=== PATIENT | male | born 1945 | race Caucasian/White ===

== ENCOUNTER 2022-05-21 13:26 | Inpatient (IN) | payer OTHER, SELFPAY ==
--- NOTE | ~2022-05-21 | CT_ITS ---
EXAMINATION: CT ANGIOGRAM OF THE CHEST WITH AND WITHOUT CONTRAST (CT PULMONARY ANGIOGRAM FOR PE) CLINICAL INFORMATION: Reason for Exam sob, tachypnea, eval for pe COMPARISON: Chest x-ray 05/21/2022. TECHNIQUE: Prior to contrast administration, noncontrast localization images were obtained. Subsequently, multidetector volumetric imaging was performed from the thoracic inlet to below the diaphragms following the administration of 80 mL Omnipaque 350 intravenous contrast. No contrast reaction reported Sagittal, coronal, and MIP oblique sagittal reformatted images were obtained on the CT workstation, uploaded to PACS, and reviewed. This CT examination was performed using dose optimization techniques as appropriate, variously including the following: *Automated exposure control *Adjustment of mA and/or kV according to patient size (this includes techniques or standardized protocols for targeted exams where dose is matched to indication/reason for exam; i.e. extremities or head) *Use of iterative reconstruction technique Total exam dose-length product 314 mGy-cm FINDINGS: QUALITY OF STUDY/CONTRAST BOLUS: Satisfactory. PULMONARY ARTERIES: No central or segmental pulmonary emboli. THORACIC AORTA: There is atherosclerotic changes throughout the thoracic aorta without aneurysm or dissection. A three-vessel branching of thoracic arch is noted with moderate atherosclerotic plaque at the origins of all vessels. LUNG: There is centrilobular emphysema with chronic left apical parenchymal thickening and scarring the scar measured approximately 1 cm thick centrally. There are cystic changes in the lung apices as well. PLEURA: No pleural effusion or pneumothorax. MEDIASTINUM: Normal heart size. No pericardial effusion. No hilar or mediastinal lymphadenopathy. No evidence of septal bowing or right heart strain. CHEST WALL/AXILLA: No axillary or internal mammary lymphadenopathy. OSSEOUS STRUCTURES: There are small sclerotic densities T6 and T10 vertebra likely small bone islands a sclerotic metastatic disease is considered less likely considering no primary exist UPPER ABDOMEN: Small hypodensity seen in the right and left hepatic lobe probable small cyst. Rest of the liver, spleen appears unremarkable. No reflux of contrast into the hepatic veins to suggest elevated right heart pressures. CT/CT angio chest PE protocol IMPRESSION: No evidence of PE. No evidence of aortic dissection or aneurysm. Diffuse centrilobular emphysema without acute process. There is moderate left apical parenchymal thickening and scarring. Sclerotic densities T6 and T10 vertebra likely small bone islands. VTE: Negative.
--- NOTE | ~2022-05-21 | XR_ITS ---
EXAMINATION: XR CHEST CLINICAL INFORMATION: Shortness of breath. Cough. COMPARISON: None TECHNIQUE: 2 views of the chest were obtained. FINDINGS: Small calcified granuloma right upper lobe. Pleural parenchymal scarring left upper lobe. No acute airspace disease.. No pulmonary vascular congestion. Right costophrenic angle slightly blunted on the AP view. Costophrenic angles however are normal posteriorly, no evidence of pleural effusion.. The heart size is normal. The cardiac and mediastinal contours are normal. There are calcifications of the thoracic aorta. There are multilevel degenerative changes of dorsal spine. Orthopedic plate and screw at lower cervical spine. XR/XR chest 2V IMPRESSION: No acute abnormality of chest.
[2022-05-21 13:44] VITALS: BP 149/95; PULSE 113; RESP 18; TEMP 36.8; O2SAT 96; BMI 22.6
--- NOTE | 2022-05-21 13:56 | ECG_ITS ---
Test Reason : shortness of breath Blood Pressure : / mmHG Vent. Rate : 096 BPM Atrial Rate : 096 BPM P-R Int : 122 ms QRS Dur : 098 ms QT Int : 370 ms P-R-T Axes : 088 -75 090 degrees QTc Int : 467 ms Normal sinus rhythm Pulmonary disease pattern Left anterior fascicular block Nonspecific T wave abnormality Prolonged QT Abnormal ECG When compared with ECG of 23-SEP-2017 23:33, T wave inversion now evident in Anterior leads Referred By: Martha Watson Electronically Signed By:STAN MICHELE
--- NOTE | 2022-05-21 14:08 | ED.MALEGU ---
HPI - Male Genitourinary General Chief complaint: Urogenital-Male Stated complaint: SOB,URINARY RETENTION Time Seen by Provider: 05/21/22 13:34 Source: patient and EMS Mode of arrival: EMS Limitations: no limitations History of Present Illness HPI Narrative: This is a 76-year-old male with history of COPD who is oxygen dependent, BPH high cholesterol, hyperthyroidism, hypertension, GERD who presents with 3 days of difficulty urinating. Patient reports only able to void small amounts. Patient is not the case emptying his bladder completely. Reports some abdominal distension. Patient denies any fevers, chills, vomiting, flank pain. Patient reports 2 weeks ago he started on oral antibiotic which she does not know the name of for presumed pneumonia. He has been taking the antibiotic and has 2 pills left. He reports continued complaints of nonproductive cough, wheezing, shortness of breath and chills. Related Data Allergies Allergy/AdvReac Type Severity Reaction Status Date / Time No Known Allergies Allergy Unverified 05/29/20 16:52 [No Known Allergies*] Review of Systems Review of Systems: Yes all other systems are reviewed and are negative Constitutional: Constitutional: Reports no additional constitutional complaints, Denies body ache(s), Reports chills, Denies fever(s), Denies headache(s) and Denies weakness Eyes: Eyes: Reports no additional eye complaints and Denies change in vision ENT: Reports system reviewed and no additional complaints, except as documented, Denies dizziness, Denies headache(s), Denies nasal congestion, Denies nasal discharge and Denies neck pain Cardiovascular: Cardiovascular: Reports no additional cardiovascular complaints, Denies chest pain, Denies leg edema and Reports dyspnea Respiratory: Respiratory: Reports no additional respiratory complaints, Reports cough and Reports dyspnea Gastrointestinal: Gastrointestinal: Reports no additional gastrointestinal complaints, Denies abdominal pain, Denies diarrhea, Denies nausea and Denies vomiting Genitourinary: Genitourinary: Reports urinary hesitancy and Denies urinary incontinence Comments: +urinary retention Musculoskeletal: Musculoskeletal: Reports no additional musculoskeletal complaints, Denies back pain, Denies arthralgias, Denies joint swelling, Denies neck pain, Denies numbness and Denies tingling Integumentary/Breasts: Skin/Breast: Reports system reviewed and no additional complaints, except as docu and Denies rash Neurologic: Reports system reviewed and no additional complaints, except as documented, Denies Abnormal speech present, Denies dizziness, Denies headache(s), Denies numbness, Denies tingling and Denies weakness PMFSH Past Medical History Attestation statement: The following information was validated with the patient. Source: old records reviewed and nursing notes reviewed Social History Social History Advance Directives: No Advance Directives Information Provided: No Physical Exam Vital Signs: Vital Signs: Last Vital Signs Temp 97.6 F 05/21/22 16:41 Pulse 106 H 05/21/22 14:18 Resp 18 05/21/22 16:41 BP 144/69 H 05/21/22 16:41 Pulse Ox 98 05/21/22 16:41 O2 Del Method 05/21/22 16:41 O2 Flow Rate 2 05/21/22 16:41 Oxygen Flow Rate 3 05/21/22 13:44 BMI result Body Mass Index 22.6 Const: General: cooperative, healthy appearing, comfortable and no acute distress Orientation/consciousness: patient oriented x3 Limitations: no limitations HEENT: Head: Yes normal to inspection Ears: hearing grossly normal bilaterally General nose exam: Normal external nose present Face and sinus: Yes normal facial exam Mouth: Normal oral and palatal mucosa present Throat: Yes posterior oropharynx normal Eyes: General: appearance normal, both eyes and all related structures Pupils: Equal, round and reactive pupils present Neck: Neck: Yes normal visual inspection Chest: Chest palpation & inspection: normal inspection of the chest Resp: Other: Tachypnea, minimal air movement, wheezing throughout, accessory muscle use Cardio: Rate: regular rate Rhythm: regular rhythm Peripheral pulses: Peripheral pulses 2+ throughout GI: Inspection: Yes normal to inspection Palpation (GI): Soft to palpation and Tenderness to palpation present (GI) (Bladder distension with tenderness) Auscultation: normal bowel sounds Back/Spine/Pelvis: Thoracic/Lumbar Spine: thoracic and lumbar spine normal to inspection Skin: General skin exam: no rashes or lesions noted Neuro: General: patient oriented x3, no focal motor deficits and normal sensation to monofilament Cranial nerves: Yes Equal, round and reactive pupils present Cognition (Neuro): normal cognition Speech: No Abnormal speech present Gait exam (Neuro): Normal gait present Motor exam (neuro): 5/5 motor strength present throughout Extrem: General: Yes normal to inspection, Yes no pedal edema and Yes no calf tenderness Course Course Course Narrative: 1500-UA is consistent with UTI. At this time infection suspected. Antibiotics ordered. Reevaluation(s) Reevaluation #1: 1540-abdomen feels better now that the bladder is decompressed. Patient still feels short of breath, tachypneic, wheezing. Chest x-ray shows no overt pneumonia. Will obtain CTA to eval for underlying PE versus occult pneumonia. Reevaluation #2: 1820-CTA negative for PE or occult pneumonia. Likely COPD exacerbation. Patient still quite tachypneic with any movement or exertion. Plan for admission for COPD exacerbation, urinary retention requiring rodas placement and UTI Reevaluation #3: 1830-spoke to Dr. Joseph who accepted patient for admission MDM - Male Genitourinary MDM Narrative Medical decision making narrative: 76 yo male with past medical history of COPD oxygen dependent and BPH here with continued SOB, wheezing, cough, chills despite taking course of oral antibiotics for PNA and urinary retention. Bladder scan shows greater than 1000 mL of urine. will place rodas, check urine, renal function Patient has wheezing, tachypnea, accessory muscle use. Likely secondary to chronic lung disease. Will check labs, chest x-ray, EKG, COVID screen Medical Records Attestation: I reviewed the patient's medical records. Lab Data Attestation: I reviewed the patient's lab results. Result diagrams: 05/21/22 14:34 05/21/22 14:34 Labs: Lab Results 05/21/22 05/21/22 05/21/22 Range/Units 14:33 14:34 14:34 WBC 11.3 H (4.8-10.8) X10*3/uL RBC 4.67 (4.60-5.80) X10*6/uL Hgb 14.5 (14.0-18.0) g/dl Hct 43.7 (42.0-52.0) % MCV 93.6 (80.0-98.0) fL MCH 31.0 (27.0-33.0) pg MCHC 33.2 (31.0-36.0) g/dl RDW 12.9 (11.0-16.0) % Plt Count 290 (160-400) X10*3/uL MPV 10.3 (9.4-12.4) fL Immature Gran % (Auto) 0.8 H (0.0-0.4) % Neut % (Auto) 62.7 (45-73) % Lymph % (Auto) 16.6 L (20-40) % [place] % (Auto) 14.2 H (2-11) % Eos % (Auto) 5.0 H (0-4) % Baso % (Auto) 0.7 (0-2) % Lymph # (Auto) 1.9 (1.2-4.9) X10*3/uL [place] # (Auto) 1.6 H (0.1-1.2) X10*3/uL Eos # (Auto) 0.6 H (0.0-0.4) X10*3/uL Baso # (Auto) 0.1 (0.0-0.2) X10*3/uL Abs Immat Gran (auto) 0.09 H (0.00-0.03) X10*3/uL Absolute Neuts (auto) 7.1 (2.0-8.3) x10*3/uL Absolute Nucleated RBC 0.000 (0.0-0.012) X10*3/uL Nucleated RBC % (auto) 0.0 (0.0-0.2) /100WBC Smear Tech's Comments VERIFIED Sodium 142 (135-145) mmol/L Potassium 3.8 (3.3-5.1) mmol/L Chloride 93 L (96-108) mmol/L Carbon Dioxide 34 H (22-29) mmol/L Anion Gap 19 (12-20) BUN 17 H (9-16) mg/dL Creatinine 1.07 (0.5-1.4) mg/dL Estim Creat Clear Calc 52.7 Estimated GFR > 60 Random Glucose 117 H (60-115) mg/dL Lactic Acid 1.0 (0.5-2.0) mmol/L Calcium 10.9 H (8.4-10.2) mg/dL Magnesium 1.7 (1.6-2.6) mg/dL Total Bilirubin 0.3 (0.0-1.0) mg/dL Direct Bilirubin 0.2 (0.0-0.5) mg/dL AST 33 (5-37) U/L ALT 18 (0-40) U/L Alkaline Phosphatase 80 (39-117) U/L Troponin I High Sens (<3.5-35.0) ng/L B-Natriuretic Peptide (<100) pg/mL Total Protein 6.9 (6.5-8.0) g/dL Albumin 4.1 (3.5-5.0) g/dL Urine Color Urine Appearance Urine pH (5.0-9.0) Ur Specific [place] (1.005-1.025) Urine Protein (Neg-Trace) mg/dL Urine Glucose (UA) (Negative) mg/dL Urine Ketones (Negative) mg/dL Urine Blood (Negative) Urine Nitrite (Negative) Ur Leukocyte Esterase (Negative) Urine RBC (0-2) /HPF Urine WBC (0-5) /HPF Ur Squamous Epith Cells (0-2) /HPF Urine Bacteria (None Seen) Hyaline Casts (0-2) /LPF COVID-19 (CARISSA) (Negative) COVID-19 Clin Com 05/21/22 05/21/22 05/21/22 Range/Units 14:34 14:34 14:34 WBC (4.8-10.8) X10*3/uL RBC (4.60-5.80) X10*6/uL Hgb (14.0-18.0) g/dl Hct (42.0-52.0) % MCV (80.0-98.0) fL MCH (27.0-33.0) pg MCHC (31.0-36.0) g/dl RDW (11.0-16.0) % Plt Count (160-400) X10*3/uL MPV (9.4-12.4) fL Immature Gran % (Auto) (0.0-0.4) % Neut % (Auto) (45-73) % Lymph % (Auto) (20-40) % [place] % (Auto) (2-11) % Eos % (Auto) (0-4) % Baso % (Auto) (0-2) % Lymph # (Auto) (1.2-4.9) X10*3/uL [place] # (Auto) (0.1-1.2) X10*3/uL Eos # (Auto) (0.0-0.4) X10*3/uL Baso # (Auto) (0.0-0.2) X10*3/uL Abs Immat Gran (auto) (0.00-0.03) X10*3/uL Absolute Neuts (auto) (2.0-8.3) x10*3/uL Absolute Nucleated RBC (0.0-0.012) X10*3/uL Nucleated RBC % (auto) (0.0-0.2) /100WBC Smear Tech's Comments Sodium (135-145) mmol/L Potassium (3.3-5.1) mmol/L Chloride (96-108) mmol/L Carbon Dioxide (22-29) mmol/L Anion Gap (12-20) BUN (9-16) mg/dL Creatinine (0.5-1.4) mg/dL Estim Creat Clear Calc Estimated GFR Random Glucose (60-115) mg/dL Lactic Acid (0.5-2.0) mmol/L Calcium (8.4-10.2) mg/dL Magnesium (1.6-2.6) mg/dL Total Bilirubin (0.0-1.0) mg/dL Direct Bilirubin (0.0-0.5) mg/dL AST (5-37) U/L ALT (0-40) U/L Alkaline Phosphatase (39-117) U/L Troponin I High Sens 84.3 H (<3.5-35.0) ng/L B-Natriuretic Peptide 72 (<100) pg/mL Total Protein (6.5-8.0) g/dL Albumin (3.5-5.0) g/dL Urine Color Urine Appearance Urine pH (5.0-9.0) Ur Specific [place] (1.005-1.025) Urine Protein (Neg-Trace) mg/dL Urine Glucose (UA) (Negative) mg/dL Urine Ketones (Negative) mg/dL Urine Blood (Negative) Urine Nitrite (Negative) Ur Leukocyte Esterase (Negative) Urine RBC (0-2) /HPF Urine WBC (0-5) /HPF Ur Squamous Epith Cells (0-2) /HPF Urine Bacteria (None Seen) Hyaline Casts (0-2) /LPF COVID-19 (CARISSA) Negative (Negative) COVID-19 Clin Com See Note 05/21/22 05/21/22 Range/Units 14:35 16:41 WBC (4.8-10.8) X10*3/uL RBC (4.60-5.80) X10*6/uL Hgb (14.0-18.0) g/dl Hct (42.0-52.0) % MCV (80.0-98.0) fL MCH (27.0-33.0) pg MCHC (31.0-36.0) g/dl RDW (11.0-16.0) % Plt Count (160-400) X10*3/uL MPV (9.4-12.4) fL Immature Gran % (Auto) (0.0-0.4) % Neut % (Auto) (45-73) % Lymph % (Auto) (20-40) % [place] % (Auto) (2-11) % Eos % (Auto) (0-4) % Baso % (Auto) (0-2) % Lymph # (Auto) (1.2-4.9) X10*3/uL [place] # (Auto) (0.1-1.2) X10*3/uL Eos # (Auto) (0.0-0.4) X10*3/uL Baso # (Auto) (0.0-0.2) X10*3/uL Abs Immat Gran (auto) (0.00-0.03) X10*3/uL Absolute Neuts (auto) (2.0-8.3) x10*3/uL Absolute Nucleated RBC (0.0-0.012) X10*3/uL Nucleated RBC % (auto) (0.0-0.2) /100WBC Smear Tech's Comments Sodium (135-145) mmol/L Potassium (3.3-5.1) mmol/L Chloride (96-108) mmol/L Carbon Dioxide (22-29) mmol/L Anion Gap (12-20) BUN (9-16) mg/dL Creatinine (0.5-1.4) mg/dL Estim Creat Clear Calc Estimated GFR Random Glucose (60-115) mg/dL Lactic Acid (0.5-2.0) mmol/L Calcium (8.4-10.2) mg/dL Magnesium (1.6-2.6) mg/dL Total Bilirubin (0.0-1.0) mg/dL Direct Bilirubin (0.0-0.5) mg/dL AST (5-37) U/L ALT (0-40) U/L Alkaline Phosphatase (39-117) U/L Troponin I High Sens 84.4 H (<3.5-35.0) ng/L B-Natriuretic Peptide (<100) pg/mL Total Protein (6.5-8.0) g/dL Albumin (3.5-5.0) g/dL Urine Color [place] A Urine Appearance Clear Urine pH 5.5 (5.0-9.0) Ur Specific [place] 1.010 (1.005-1.025) Urine Protein Negative (Neg-Trace) mg/dL Urine Glucose (UA) Negative (Negative) mg/dL Urine Ketones 15 (Negative) mg/dL Urine Blood Negative (Negative) Urine Nitrite Positive H (Negative) Ur Leukocyte Esterase Trace H (Negative) Urine RBC 0-2 (0-2) /HPF Urine WBC 0-5 (0-5) /HPF Ur Squamous Epith Cells 0-2 (0-2) /HPF Urine Bacteria None Seen (None Seen) Hyaline Casts 0-2 (0-2) /LPF COVID-19 (CARISSA) (Negative) COVID-19 Clin Com Imaging Data Chest x-ray: Attestation: I personally reviewed and interpreted this imaging study as follows: Radiologist's impression: [place] [id number] XRay Report Signed Patient: Beny Han MR#: [id number] : 1945 Acct:[id number] Age/Sex: 76 / M ADM Date: 05/21/22 Loc: .ED Attending Dr: Ordering Physician: Martha Watson NP Date of Service: 05/21/22 Procedure(s): XR chest 2V Accession Number(s): [id number] cc: Martha Watson NP~ EXAMINATION: XR CHEST CLINICAL INFORMATION: Shortness of breath. Cough. COMPARISON: None TECHNIQUE: 2 views of the chest were obtained. FINDINGS: Small calcified granuloma right upper lobe. Pleural parenchymal scarring left upper lobe. No acute airspace disease.. No pulmonary vascular congestion. Right costophrenic angle slightly blunted on the AP view. Costophrenic angles however are normal posteriorly, no evidence of pleural effusion.. The heart size is normal. The cardiac and mediastinal contours are normal. There are calcifications of the thoracic aorta. There are multilevel degenerative changes of dorsal spine.? ? Orthopedic plate and screw at lower cervical spine. XR/XR chest 2V IMPRESSION: No acute abnormality of chest. ECG Data Attestation: I personally reviewed and interpreted this ECG as follows: ECG interpretation date: 05/21/22 ECG interpretation time: 15:02 Interpretation: Normal sinus rhythm with a rate 86, normal VT, normal QRS, nonspecific ST changes, prolonged QT 480 Discharge Plan Discharge Clinical Impression: Urinary tract infection, Acute retention of urine, Acute exacerbation of chronic obstructive pulmonary disease Patient Disposition: Admitted As Inpatient
[2022-05-21] MEDS: Albuterol/Iprat 2.5/0.5MG 3 ML AMPUL.NEB INHALE ×2 (14:17→19:56)
[2022-05-21 14:18] VITALS: PULSE 106; RESP 21; O2SAT 97
[2022-05-21] MEDS: methylPREDNISolone Sod Succ 125 MG/2 ML VIAL IVPUSH (14:40)
[2022-05-21] MEDS: Lidocaine HCl 2 % Urojet 10 ML JEL.PF.APP TOPICAL (14:41)
[2022-05-21 14:46] LABS: Basophils Absolute Auto 0.1 X10*3/uL (0.0-0.2); Basophils Percent Auto 0.7 % (0-2); Eosinophils Absolute Auto 0.6 X10*3/uL (0.0-0.4); Hematocrit 43.7 % (42.0-52.0); Hemoglobin 14.5 g/dl (14.0-18.0); Imm Gran Abs Auto 0.09 X10*3/uL (0.00-0.03); Imm Gran Pct Auto 0.8 % (0.0-0.4); Lymphocytes Absolute Auto 1.9 X10*3/uL (1.2-4.9); Lymphocytes Percent Auto 16.6 % (20-40); MANUAL DIFF FLAG SCAN; Mean Corpuscular HGB Conc 33.2 g/dl (31.0-36.0); Mean Corpuscular Volume 93.6 fL (80.0-98.0); Mean Platelet Volume 10.3 fL (9.4-12.4); Monocytes Absolute Auto 1.6 X10*3/uL (0.1-1.2); Monocytes Percent Auto 14.2 % (2-11); Neutrophils Absolute Auto 7.1 x10*3/uL (2.0-8.3); Neutrophils Percent Auto 62.7 % (45-73); Platelet Count 290 X10*3/uL (160-400); Red Blood Count 4.67 X10*6/uL (4.60-5.80); Red Cell Distribution Width 12.9 % (11.0-16.0); SCAN SMEAR FLAG 1; White Blood Count 11.3 X10*3/uL (4.8-10.8)
[2022-05-21 14:52] LABS: Appearance Urine Clear; Glucose Urine UA Negative (Negative); Leukocyte Esterase Urine Trace (Negative); PH 5.5 (5.0-9.0); Urine Blood Negative (Negative); Urine Ketones 15 mg/dL (Negative); Urine Protein Negative (Neg-Trace)
[2022-05-21 15:01] LABS: Bacteria Urine None Seen (None Seen); Hyaline Casts Urine 0-2 /LPF (0-2); RBC Urine 0-2 /HPF (0-2); Squamous Epithelial Cell Urine 0-2 /HPF (0-2); WBC Urine 0-5 /HPF (0-5)
[2022-05-21 15:03] LABS: Color Urine Orange; Nitrite Urine Positive (Negative); UACC Culture Trigger NO
[2022-05-21 15:10] LABS: COVID-19 Test Negative (Negative); IDNOW Serial# 9DD0AD1C
--- NOTE | 2022-05-21 15:12 | ECG_ITS ---
Test Reason : shortness of breath/ repeat Blood Pressure : / mmHG Vent. Rate : 096 BPM Atrial Rate : 096 BPM P-R Int : 122 ms QRS Dur : 098 ms QT Int : 380 ms P-R-T Axes : 088 -76 091 degrees QTc Int : 480 ms Normal sinus rhythm Pulmonary disease pattern Left anterior fascicular block Nonspecific T wave abnormality Prolonged QT Abnormal ECG When compared with ECG of 21-MAY-2022 14:59, No significant change was found Referred By: Martha Watson Electronically Signed By:
[2022-05-21] MEDS: cefEPime HCl 1 GM in 0.9 % Sodium Chloride 50 ML IV (15:13)
[2022-05-21 15:24] LABS: Alanine Aminotransferase 18 U/L (0-40); Albumin Level 4.1 g/dL (3.5-5.0); Alkaline Phosphatase 80 U/L (39-117); Anion Gap 19 (12-20); Aspartate Amino Transferase 33 U/L (5-37); Bilirubin Direct 0.2 mg/dL (0.0-0.5); Bilirubin Total 0.3 mg/dL (0.0-1.0); Blood Urea Nitrogen 17 mg/dL (9-16); Carbon Dioxide 34 mmol/L (22-29); Chloride 93 mmol/L (96-108); Creatinine Clr Calc Pharmacy 52.7; Estimated Glomerular Filt Rate > 60; Glucose Random 117 mg/dL (60-115); Magnesium 1.7 mg/dL (1.6-2.6); Potassium 3.8 mmol/L (3.3-5.1); Sodium 142 mmol/L (135-145); Total Protein 6.9 g/dL (6.5-8.0)
[2022-05-21 15:25] LABS: B Type Natriuretic Peptide 72 pg/mL (<100); Troponin-I High Sensitivity 84.3 ng/L (<3.5-35.0)
[2022-05-21 15:55] LABS: Calcium 10.9 mg/dL (8.4-10.2)
[2022-05-21 16:00] LABS: SLIDE REVIEW VERIFIED
[2022-05-21] MEDS: iohexoL 350 MG/ML 100 ML INFUS..BTL IV (16:04)
[2022-05-21 16:41] VITALS: BP 144/69; RESP 18; TEMP 36.4; O2SAT 98
[2022-05-21 17:11] LABS: Troponin-I High Sensitivity 84.4 ng/L (<3.5-35.0)
--- NOTE | 2022-05-21 18:59 | PM.IMHP ---
History of Present Illness Date of Service: 05/21/22 Attending physician on admission: Prince Joseph Chief Complaint: sob , uti 76-year-old male with history of advanced COPD who is oxygen dependent,wpw, cad s/p stents 6 years ago, BPH high cholesterol, hyperthyroidism, hypertension, GERD who presents with 3 days of difficulty urinating.? Patient reports 2 weeks ago he started on oral antibiotic which she does not know the name of for presumed pneumonia. Patient says that he was feeling initially better with shortness of breath the so and then says slowly his shortness of breath started getting worse and also started having cough with yellowish phlegm. In addition he was having trouble urinating was urinating in very small amounts and history of BPH. Denies any nausea or vomiting or fever or chills, has some gaseous sensation in the abdomen . Denies any new complaint of chest pain Denies any weakness or numbness. Denies any sick contact or travel recently. He is COVID vaccinatedx4 Speak With Me. Lab imaging EKG reviewed: Patient has white count of 11.3, BUN 17, creatinine 1.07, calcium 10.9, troponin x2 84 range flat. EKG has v1-v3 t wave inversion. Chest x-ray and CTA: Says has emphysema. Review of Systems Review of Systems: As above. Yes all other systems are reviewed and are negative [facility] Social History (Updated 05/21/22 @ 19:07 by Prince Joseph MD) Household Members: Family Alcohol intake: never Patient Tobacco Use Status: Former Tobacco user Use of substances other than those prescribed or required for medical reasons: No Advance Directives: No Advance Directives Information Provided: No Meds Allergies Allergy/AdvReac Type Severity Reaction Status Date / Time No Known Allergies Allergy Unverified 05/29/20 16:52 [No Known Allergies*] Active Medications: Current Medications Albuterol/Ipratropium (Albuterol/Iprat 2.5/0.5mg 3 Ml Ampul.Neb) 3 ml INHALE Q4H ESTHER Albuterol/Ipratropium (Albuterol/Iprat 2.5/0.5mg 3 Ml Ampul.Neb) 3 ml INHALE Q3H PRN PRN Reason: sob Aspirin (Aspirin Enteric Coated 81 Mg Tablet.) 162 mg PO ONCE ONE Stop: 05/21/22 18:56 Atorvastatin Calcium (Atorvastatin Calcium 40 Mg Tablet) 40 mg PO ONCE ONE Stop: 05/21/22 18:58 Finasteride (Finasteride 5 Mg Tablet) 5 mg PO DAILY [facility] Ceftriaxone Sodium 1 gm/ (Sodium Chloride) 50 mls @ 100 mls/hr IV Q24H [facility] Methylprednisolone Sodium Succinate (Methylprednisolone Sod Succ 40 Mg/Ml Vial) 40 mg IVPUSH BID [facility] Pharmacy Consult (Consult Rx Perform Med Rec) 1 each MISCELLANE ONCE PRN PRN Reason: Consult order Pharmacy Consult (Consult Rx Perform Med Rec) 1 each MISCELLANE ONCE PRN PRN Reason: Consult order Sodium Chloride (0.9 % Sodium Chloride Flush 3 Ml Syringe) 3 ml IVFLUSH QSHIFT [facility] Tamsulosin HCl (Tamsulosin Hcl 0.4 Mg Capsule) 0.4 mg PO DAILY [facility] Physical Exam Vital Signs and Narrative: Vital Signs: Last Vital Signs Temp 97.6 F 05/21/22 16:41 Pulse 106 H 05/21/22 14:18 Resp 18 05/21/22 16:41 BP 144/69 H 05/21/22 16:41 Pulse Ox 98 05/21/22 16:41 O2 Del Method 05/21/22 16:41 O2 Flow Rate 2 05/21/22 16:41 Oxygen Flow Rate 3 05/21/22 13:44 BMI result Body Mass Index 22.6 Appearance: Alert.? Oriented X3.? not in distress.? Eyes: Pupils equal, round and reactive to light.? Sclera nonicteric.? ENT: Pharynx normal.? Moist mucous membranes. cvs: rrr, [id number] . res: diminshed breath sounds , has b/l wheezing abd: no rebound or guarding ,nt, bs present. ext pulses present , no cyanosis. neuro: axo3 , nonfocal. Results Labs CBC and Chem 7: 05/21/22 14:34 05/21/22 14:34 Labs: Laboratory Results - last 24 hr 05/21/22 05/21/22 05/21/22 14:33 14:34 14:34 MCV 93.6 MCH 31.0 MCHC 33.2 RDW 12.9 Plt Count 290 MPV 10.3 Immature Gran % (Auto) 0.8 H Neut % (Auto) 62.7 Lymph % (Auto) 16.6 L [place] % (Auto) 14.2 H Eos % (Auto) 5.0 H Baso % (Auto) 0.7 Lymph # (Auto) 1.9 [place] # (Auto) 1.6 H Eos # (Auto) 0.6 H Baso # (Auto) 0.1 Abs Immat Gran (auto) 0.09 H Absolute Neuts (auto) 7.1 Absolute Nucleated RBC 0.000 Nucleated RBC % (auto) 0.0 Smear Tech's Comments VERIFIED Anion Gap 19 Estim Creat Clear Calc 52.7 Estimated GFR > 60 Random Glucose 117 H Lactic Acid 1.0 Calcium 10.9 H Magnesium 1.7 Total Bilirubin 0.3 Direct Bilirubin 0.2 AST 33 ALT 18 Alkaline Phosphatase 80 B-Natriuretic Peptide Total Protein 6.9 Albumin 4.1 Urine Color Urine Appearance Urine pH Ur Specific [place] Urine Protein Urine Glucose (UA) Urine Ketones Urine Blood Urine Nitrite Ur Leukocyte Esterase Urine RBC Urine WBC Ur Squamous Epith Cells Urine Bacteria Hyaline Casts COVID-19 (CARISSA) COVID-19 Clin Com 05/21/22 05/21/22 05/21/22 14:34 14:34 14:35 MCV MCH MCHC RDW Plt Count MPV Immature Gran % (Auto) Neut % (Auto) Lymph % (Auto) [place] % (Auto) Eos % (Auto) Baso % (Auto) Lymph # (Auto) [place] # (Auto) Eos # (Auto) Baso # (Auto) Abs Immat Gran (auto) Absolute Neuts (auto) Absolute Nucleated RBC Nucleated RBC % (auto) Smear Tech's Comments Anion Gap Estim Creat Clear Calc Estimated GFR Random Glucose Lactic Acid Calcium Magnesium Total Bilirubin Direct Bilirubin AST ALT Alkaline Phosphatase B-Natriuretic Peptide 72 Total Protein Albumin Urine Color [place] A Urine Appearance Clear Urine pH 5.5 Ur Specific [place] 1.010 Urine Protein Negative Urine Glucose (UA) Negative Urine Ketones 15 Urine Blood Negative Urine Nitrite Positive H Ur Leukocyte Esterase Trace H Urine RBC 0-2 Urine WBC 0-5 Ur Squamous Epith Cells 0-2 Urine Bacteria None Seen Hyaline Casts 0-2 COVID-19 (CARISSA) Negative COVID-19 Clin Com See Note ECG Attestation: I personally reviewed and interpreted this ECG as follows: (t wave inversion in v1-v3 leads) Imaging Radiologist's Impressions: Impressions Chest X-Ray 05/21/22 14:38 IMPRESSION: No acute abnormality of chest. Chest CTA 05/21/22 16:19 IMPRESSION: No evidence of PE. No evidence of aortic dissection or aneurysm. Diffuse centrilobular emphysema without acute process. There is moderate left apical parenchymal thickening and scarring. Sclerotic densities T6 and T10 vertebra likely small bone islands. VTE: Negative. Assessment and Plan (1) Urinary tract infection: Status: Acute (2) Acute retention of urine: Status: Acute (3) Acute exacerbation of chronic obstructive pulmonary disease: Status: Acute (4) WPW (Zfmht-Rqoctfcfq-Sbubq syndrome): Status: Acute (5) CAD (coronary artery disease): Status: Acute Plan 76-year-old male with history of advanced COPD who is oxygen dependent,wpw, cad s/p stents 6 years ago, BPH high cholesterol, hyperthyroidism, hypertension, GERD : Admitting for COPD exacerbation and UTI. 1. COPD exacerbation who is oxygen dependent: initail tachycaria/Tachypnea probably related to COPD. Still short of breath, talking in small sentences. Started on nebs, steroids, antibiotics Blood cultures sent 2. ? CAD had heart stents 6 years ago and also has history of [id number]-[id number]: Medical reconciliation still pending Patient has mild elevated troponin, also has EKG changes as above Will start aspirin statin, cardiology consult, echo 3. BPH: Was draining almost 1 L of urine. Status post Lamas Continue Flomax and finasteride May need outpatient follow-up with Urology. 4. Hypercholesteremia and hypothyroidism as well as hypertension: Home med reconciliation is still pending 5. UTI: Patient was given cefepime initially, started on ceftriaxone, urine culture ordered. Blood culture also sent. DVT prophylaxis: With subQ Lovenox Patient has COPD exacerbation/UTI-started on nebs, steroids and antibiotics, cultures sent- patient will benefit from 2 midnight stay for COPD management as well as UTI management and workup. Above management discussed with the patient in detail and he understand and in agreement with the plan, time spent 70 minute, patient is DNR DNI. Quality Stroke Does the patient have a stroke diagnosis?: No VTE Prior VTE?: No VTE Risk Level:: Medical - moderate - high VTE Device Contraindication: N/A - Device Ordered VTE Drug Contraindication: N/A - Med Ordered
--- NOTE | 2022-05-21 19:22 | PHA.MEDREC ---
Pharmacy Consult ? Medication Reconciliation Pharmacy has completed the medication reconciliation.
[2022-05-21 19:57] VITALS: PULSE 91; RESP 23; O2SAT 96
[2022-05-21 20:22] VITALS: BP 121/72; PULSE 94; RESP 21; TEMP 36.8; O2SAT 97
[2022-05-21] MEDS: Aspirin Enteric Coated 81 MG TABLET.DR 162 MG PO (20:25)
[2022-05-21] MEDS: Omeprazole 20 MG CAPSULE.DR PO (20:26)
[2022-05-21] MEDS: cefTRIAXone sodium 1 GM in 0.9 % Sodium Chloride 50 ML IV (20:26)
--- NOTE | 2022-05-21 20:32 | PC.NURSE ---
Assumed care of pt at 1900. Pt. is sitting in bed watching tv, under no apparent distress. Pt. reports no pain. Will continue to monitor.
[2022-05-21] MEDS: Enoxaparin Sodium 40 MG/0.4 ML SYRINGE SUBCUT (21:23)
[2022-05-21] MEDS: Acyclovir 200 MG CAPSULE 400 MG PO (21:23)
[2022-05-21] MEDS: Ascorbic Acid 500 MG TABLET PO (21:23)
[2022-05-21] MEDS: methylPREDNISolone Sod Succ 40 MG/ML VIAL IVPUSH (21:51)
[2022-05-21] MEDS: QUEtiapine Fumarate 100 MG TABLET PO (22:46)
[2022-05-21] MEDS: LORazepam 0.5 MG TABLET PO (22:47)
[2022-05-21] MEDS: Temazepam 15 MG CAPSULE PO (22:47)
[2022-05-22] VITALS (9 sets, daily range): BP systolic 100–133; BP diastolic 63–73; PULSE 77–120; RESP 17–24; TEMP 36.9; O2SAT 94–97; BMI 23.4
[2022-05-22] MEDS: Albuterol/Iprat 2.5/0.5MG 3 ML AMPUL.NEB INHALE ×4 (08:16→19:59)
[2022-05-22 08:18] LABS: Hematocrit 39.1 % (42.0-52.0); Mean Corpuscular HGB Conc 33.2 g/dl (31.0-36.0); Mean Corpuscular Hemoglobin 31.2 pg (27.0-33.0); Mean Corpuscular Volume 93.8 fL (80.0-98.0); Mean Platelet Volume 10.6 fL (9.4-12.4); Platelet Count 270 X10*3/uL (160-400); Red Blood Count 4.17 X10*6/uL (4.60-5.80); Red Cell Distribution Width 12.8 % (11.0-16.0); White Blood Count 12.9 X10*3/uL (4.8-10.8)
[2022-05-22 08:41] LABS: Anion Gap 14 (12-20); Blood Urea Nitrogen 16 mg/dL (9-16); Calcium 9.5 mg/dL (8.4-10.2); Carbon Dioxide 34 mmol/L (22-29); Chloride 95 mmol/L (96-108); Creatinine Clr Calc Pharmacy 64.8; Estimated Glomerular Filt Rate > 60; Glucose Random 146 mg/dL (60-115); Potassium 4.3 mmol/L (3.3-5.1); Sodium 139 mmol/L (135-145)
[2022-05-22] MEDS: Cholecalciferol (Vitamin D3) 25 MCG TABLET PO (08:52)
[2022-05-22] MEDS: Ascorbic Acid 500 MG TABLET PO ×2 (08:52→20:49)
[2022-05-22] MEDS: methylPREDNISolone Sod Succ 40 MG/ML VIAL IVPUSH ×2 (08:52→20:49)
[2022-05-22] MEDS: Finasteride 5 MG TABLET PO (08:52)
[2022-05-22] MEDS: Omeprazole 20 MG CAPSULE.DR PO (08:52)
[2022-05-22] MEDS: Atorvastatin Calcium 80 MG TABLET PO (08:52)
[2022-05-22] MEDS: Metoprolol Succinate ER 50 MG TAB.ER.24H PO (08:53)
[2022-05-22] MEDS: Losartan Potassium 25 MG TABLET PO (08:53)
[2022-05-22] MEDS: Lidocaine 4 % Patch ADH..PATCH 1 PATCH TRANSDERMA (08:53)
[2022-05-22] MEDS: polyethylene glycoL 3350 17 GM POWD.PACK PO (08:53)
[2022-05-22] MEDS: Tamsulosin HCL 0.4 MG CAPSULE PO (08:53)
[2022-05-22] MEDS: 0.9 % Sodium Chloride Flush 3 ML SYRINGE IVFLUSH ×4 (08:55→23:49)
[2022-05-22] MEDS: buPROPion HCL 75 MG TABLET PO (09:04)
[2022-05-22] MEDS: Acyclovir 200 MG CAPSULE 400 MG PO ×2 (09:05→22:26)
--- NOTE | 2022-05-22 09:29 | PC.NURSE ---
Pt alert/oriented. reports 09/21 abd discomfort Speaking full sentences. Lamas patent however lino blood noted in drainage bag. ASA held, Dr Joseph aware with orders to monitor at this time. Sinus tach on tele low 100s, sat 98% on home 2lpm.
[2022-05-22] MEDS: Furosemide 20 MG TABLET PO (10:22)
--- NOTE | 2022-05-22 13:00 | MHC.CM.PN ---
Met with pt to discuss d/c planning: Pt resides alone but has a compensated RN ACUTE CARE 7 days per week ([facility]) Pt has a walker, cane, scooter, chair lift and concentrator for O2. His PCP is TONI Hardy from the [facility]. He has community RN visits from the [place] and from [place]. Pt states he is vaxed x 3. IMM in chart, HCP copy requested from home. D/C plan is for a return to home with existing services and supports. Haley will transport and pt will call her from his personal cell when ready
--- NOTE | 2022-05-22 13:28 | PC.NURSE ---
Flaco blood previously noted in rodas improving, not as bright as noted previously. Pt tachy in 120s, sinus. Dr Joseph updated.
--- NOTE | 2022-05-22 14:00 | PM.CNCAR ---
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 He underwent ablation as well as PCI in [facility]. He is saying he was being assessed for lung transplant at that time and underwent PCI. Does not know his anginal symptoms and has shortness of breath all the time. He has advanced lung disease. He is now presenting with urinary retention with some hematuria present now after Lamas catheter placement and shortness of breath due to COPD exacerbation. After steroids he is feeling better. His EKG has shown anterior T-wave inversions as well as T-wave inversions in 1 aVL. His last EKG not system is 4 years old and these changes are new. He is denying any chest discomfort. He is feeling better from pulmonary point of view after treatment for COPD exacerbation. [facility] Social History Social History (Updated 05/21/22 @ 19:07 by Prince Joseph MD) Household Members: Family Alcohol intake: never Patient Tobacco Use Status: Former Tobacco user Use of substances other than those prescribed or required for medical reasons: No Advance Directives: No Advance Directives Information Provided: No service: Yes Current occupational status: disabled Meds Allergies Allergy/AdvReac Type Severity Reaction Status Date / Time No Known Allergies Allergy Unverified 05/29/20 16:52 [No Known Allergies*] Active Medications: Current Medications Acyclovir (Acyclovir 200 Mg Capsule) 400 mg PO BID [facility] Last Admin: 05/22/22 09:05 Dose: 400 mg Albuterol/Ipratropium (Albuterol/Iprat 2.5/0.5mg 3 Ml Ampul.Neb) 3 ml INHALE Q4H [facility] Last Admin: 05/22/22 11:17 Dose: 3 ml Albuterol/Ipratropium (Albuterol/Iprat 2.5/0.5mg 3 Ml Ampul.Neb) 3 ml INHALE Q3H PRN PRN Reason: sob Ascorbic Acid (Ascorbic Acid 500 Mg Tablet) 500 mg PO BID [facility] Last Admin: 05/22/22 08:52 Dose: 500 mg Aspirin (Aspirin 81 Mg Tab.Chew) 81 mg PO DAILY [facility] Last Admin: 05/22/22 09:03 Dose: Not Given Atorvastatin Calcium (Atorvastatin Calcium 80 Mg Tablet) 80 mg PO DAILY [facility] Last Admin: 05/22/22 08:52 Dose: 80 mg Bupropion HCl (Bupropion Hcl 75 Mg Tablet) 75 mg PO DAILY [facility] Last Admin: 05/22/22 09:04 Dose: 75 mg Calcium Carbonate (Calcium Carbonate 500 Mg Tablet) 1,000 mg PO DAILY [facility] Last Admin: 05/22/22 09:04 Dose: 1,000 mg Docusate Sodium (Docusate Sodium 100 Mg Capsule) 100 mg PO BID PRN PRN Reason: soften stool Finasteride (Finasteride 5 Mg Tablet) 5 mg PO DAILY [facility] Last Admin: 05/22/22 08:52 Dose: 5 mg Furosemide (Furosemide 20 Mg Tablet) 20 mg PO SUTUTHSA [facility]; Protocol Last Admin: 05/22/22 10:22 Dose: 20 mg Furosemide (Furosemide 40 Mg Tablet) 40 mg PO MOWEFR [facility]; Protocol Last Admin: 05/22/22 09:10 Dose: Not Given Guaifenesin (Guaifenesin 200 Mg/10 Ml 10 Ml Liquid) 400 ml PO BID PRN PRN Reason: Cough Ceftriaxone Sodium 1 gm/ (Sodium Chloride) 50 mls @ 100 mls/hr IV Q24H [facility] Last Infusion: 05/21/22 22:37 Dose: Infused Lidocaine (Lidocaine 4 % Patch Adh..Patch) 1 patch TRANSDERMA DAILY [facility] Last Admin: 05/22/22 08:53 Dose: 1 patch Loratadine (Loratadine 10 Mg Tablet) 10 mg PO DAILY PRN PRN Reason: Allergy Symptoms Lorazepam (Lorazepam 0.5 Mg Tablet) 0.5 mg PO TID PRN PRN Reason: Anxiety Last Admin: 05/21/22 22:47 Dose: 0.5 mg Losartan Potassium (Losartan Potassium 25 Mg Tablet) 25 mg PO DAILY [facility]; Protocol Last Admin: 05/22/22 08:53 Dose: 25 mg Methimazole (Methimazole 5 Mg Tablet) 5 mg PO MOWEFR [facility] Last Admin: 05/22/22 09:10 Dose: Not Given Methylprednisolone Sodium Succinate (Methylprednisolone Sod Succ 40 Mg/Ml Vial) 40 mg IVPUSH BID [facility] Last Admin: 05/22/22 08:52 Dose: 40 mg Metoprolol Succinate (Metoprolol Succinate Er 50 Mg Tab.Er.24h) 50 mg PO DAILY [facility]; Protocol Last Admin: 05/22/22 08:53 Dose: 50 mg Nitroglycerin (Nitroglycerin 0.4 Mg Tab.Subl) 0.4 mg SUBLINGUAL Q5M PRN PRN Reason: Chest Pain Omeprazole (Omeprazole 20 Mg Capsule.Dr) 20 mg PO DAILY [facility] Last Admin: 05/22/22 08:52 Dose: 20 mg Pharmacy Consult (Consult Rx Perform Med Rec) 1 each MISCELLANE ONCE PRN PRN Reason: Consult order Pharmacy Consult (Consult Rx Perform Med Rec) 1 each MISCELLANE ONCE PRN PRN Reason: Consult order Polyethylene Glycol (Polyethylene Glycol 3350 17 Gm Powd.Pack) 17 gm PO DAILY [facility] Last Admin: 05/22/22 08:53 Dose: 17 gm Quetiapine Fumarate (Quetiapine Fumarate 100 Mg Tablet) 100 mg PO BEDTIME PRN PRN Reason: Sleep Last Admin: 05/21/22 22:46 Dose: 100 mg Senna (Sennosides 8.6 Mg Tablet) 8.6 mg PO BID PRN PRN Reason: Constipation Sodium Chloride (0.9 % Sodium Chloride Flush 3 Ml Syringe) 3 ml IVFLUSH QSHIFT [facility] Last Admin: 05/22/22 09:11 Dose: 3 ml Tamsulosin HCl (Tamsulosin Hcl 0.4 Mg Capsule) 0.4 mg PO DAILY [facility] Last Admin: 05/22/22 08:53 Dose: 0.4 mg Temazepam (Temazepam 15 Mg Capsule) 15 mg PO BEDTIME PRN PRN Reason: Sleep Last Admin: 05/21/22 22:47 Dose: 15 mg Tramadol HCl (Tramadol Hcl 50 Mg Tablet) 50 mg PO DAILY PRN PRN Reason: Pain, Severe (Pain Scale 7-10) Vitamin D (Cholecalciferol (Vitamin D3) 25 Mcg Tablet) 25 mcg PO DAILY [facility] Last Admin: 05/22/22 08:52 Dose: 25 mcg Home Medications Medication Instructions Recorded Confirmed Last Taken Type Lactobacillus acidophilus 1 tab PO DAILY 05/21/22 05/21/22 05/21/22 History acyclovir 200 mg capsule 400 mg PO BID 05/21/22 05/21/22 05/21/22 History albuterol sulfate 90 mcg/actuation 2 puff inhalation QID PRN 05/21/22 05/21/22 Unknown History aerosol inhaler (ProAir HFA) Shortness Of Breath alendronate 70 mg tablet (Fosamax) 70 mg PO PEREYRA 05/21/22 05/21/22 05/16/22 History ascorbic acid (vitamin C) 500 mg 500 mg PO BID 05/21/22 05/21/22 05/21/22 History tablet (Vitamin C) aspirin 81 mg chewable tablet 81 mg PO DAILY 05/21/22 05/21/22 05/21/22 History budesonide 0.25 mg/2 mL suspension 0.25 mg inhalation BID 05/21/22 05/21/22 05/21/22 History for nebulization bupropion HCl 75 mg tablet 75 mg PO DAILY 05/21/22 05/21/22 05/21/22 History calcium carbonate 500 mg calcium 1,000 mg PO DAILY 05/21/22 05/21/22 05/21/22 History (1,250 mg) tablet cholecalciferol (vitamin D3) 25 25 mcg PO DAILY 05/21/22 05/21/22 05/21/22 History mcg (1,000 unit) tablet (Vitamin D3) docusate sodium 100 mg capsule 100 mg PO BID PRN soften stool 05/21/22 05/21/22 Unknown History (Colace) finasteride 5 mg tablet (Proscar) 5 mg PO DAILY 05/21/22 05/21/22 05/21/22 History furosemide 20 mg tablet (Lasix) 20 mg PO SUTUTHSA 05/21/22 05/21/22 05/20/22 History furosemide 20 mg tablet (Lasix) 40 mg PO MOWEFR 05/21/22 05/21/22 05/21/22 History guaifenesin 200 mg tablet 400 mg PO BID PRN Cough 05/21/22 05/21/22 Unknown History ibuprofen 400 mg tablet 400 mg PO Q8H PRN Pain 05/21/22 05/21/22 Unknown History lidocaine 5 % topical patch 1 patch topical DAILY 05/21/22 05/21/22 05/21/22 History (Lidoderm) loratadine 10 mg tablet (Claritin) 10 mg PO DAILY PRN Allergy Symptoms 05/21/22 05/21/22 Unknown History lorazepam 0.5 mg tablet 0.5 mg PO TID PRN Anxiety 05/21/22 05/21/22 Unknown History losartan 25 mg tablet 25 mg PO DAILY 05/21/22 05/21/22 05/21/22 History methimazole 5 mg tablet 5 mg PO MOWEFR 05/21/22 05/21/22 05/21/22 History metoprolol succinate 50 mg 50 mg PO DAILY 05/21/22 05/21/22 05/21/22 History tablet,extended release 24 hr nitroglycerin 0.4 mg sublingual 0.4 mg sublingual Q5M PRN Chest 05/21/22 05/21/22 Unknown History tablet Pain omeprazole 20 mg capsule,delayed 20 mg PO DAILY 05/21/22 05/21/22 05/21/22 History release polyethylene glycol 3350 17 gram 17 g PO DAILY 05/21/22 05/21/22 05/21/22 History oral powder packet (Miralax) quetiapine 100 mg tablet 100 mg PO BEDTIME PRN Sleep 05/21/22 05/21/22 Unknown History rosuvastatin 40 mg tablet (Crestor) 20 mg PO DAILY 05/21/22 05/21/22 05/21/22 History sennosides 8.6 mg tablet (senna) 8.6 mg PO BID PRN Constipation 05/21/22 05/21/22 Unknown History tamsulosin 0.4 mg capsule (Flomax) 0.4 mg PO DAILY 05/21/22 05/21/22 05/21/22 History tiotropium 2.5 mcg-olodaterol 2.5 2 puff inhalation DAILY 05/21/22 05/21/22 05/21/22 History mcg/actuation mist for inhalation tramadol 50 mg tablet 50 mg PO DAILY PRN Pain 05/21/22 05/21/22 Unknown History zaleplon 10 mg capsule 10 mg PO BEDTIME PRN Sleep 05/21/22 05/21/22 Unknown History Physical Exam Vital Signs: Vital Signs: Last Vital Signs Temp 98.3 F 05/21/22 20:22 Pulse 118 H 05/22/22 11:17 Resp 17 05/22/22 11:17 BP 120/63 05/22/22 09:08 Pulse Ox 97 05/22/22 09:08 O2 Del Method 05/22/22 09:08 O2 Flow Rate 2 05/22/22 09:08 Oxygen Flow Rate 3 05/21/22 13:44 BMI result Body Mass Index 22.6 GENERAL APPEARANCE: in no acute distress, pleasant. NECK: no carotid bruit, no jugular venous distention. SKIN: no suspicious lesions, warm and dry. HEART: no murmurs, regular rate and rhythm. LUNGS: Diminished breath sounds bilaterally. Expiratory wheezes and prolonged expiratory phase. ABDOMEN: soft, nontender. EXTREMITIES: no edema. PERIPHERAL PULSES: equal. NEUROLOGIC: No gross deficits, AAO X 3 Objective Labs and Meds Result diagrams: 05/22/22 08:01 05/22/22 08:01 Lab results: Laboratory Results - last 24 hr 05/21/22 05/21/22 05/21/22 14:33 14:34 14:34 WBC 11.3 H RBC 4.67 Hgb 14.5 Hct 43.7 MCV 93.6 MCH 31.0 MCHC 33.2 RDW 12.9 Plt Count 290 MPV 10.3 Immature Gran % (Auto) 0.8 H Neut % (Auto) 62.7 Lymph % (Auto) 16.6 L [place] % (Auto) 14.2 H Eos % (Auto) 5.0 H Baso % (Auto) 0.7 Lymph # (Auto) 1.9 [place] # (Auto) 1.6 H Eos # (Auto) 0.6 H Baso # (Auto) 0.1 Abs Immat Gran (auto) 0.09 H Absolute Neuts (auto) 7.1 Absolute Nucleated RBC 0.000 Nucleated RBC % (auto) 0.0 Smear Tech's Comments VERIFIED Sodium 142 Potassium 3.8 Chloride 93 L Carbon Dioxide 34 H Anion Gap 19 BUN 17 H Creatinine 1.07 Estim Creat Clear Calc 52.7 Estimated GFR > 60 Random Glucose 117 H Lactic Acid 1.0 Calcium 10.9 H Magnesium 1.7 Total Bilirubin 0.3 Direct Bilirubin 0.2 AST 33 ALT 18 Alkaline Phosphatase 80 Troponin I High Sens B-Natriuretic Peptide Total Protein 6.9 Albumin 4.1 Urine Color Urine Appearance Urine pH Ur Specific [place] Urine Protein Urine Glucose (UA) Urine Ketones Urine Blood Urine Nitrite Ur Leukocyte Esterase Urine RBC Urine WBC Ur Squamous Epith Cells Urine Bacteria Hyaline Casts COVID-19 (CARISSA) COVID-19 Clin Com 05/21/22 05/21/22 05/21/22 14:34 14:34 14:34 WBC RBC Hgb Hct MCV MCH MCHC RDW Plt Count MPV Immature Gran % (Auto) Neut % (Auto) Lymph % (Auto) [place] % (Auto) Eos % (Auto) Baso % (Auto) Lymph # (Auto) [place] # (Auto) Eos # (Auto) Baso # (Auto) Abs Immat Gran (auto) Absolute Neuts (auto) Absolute Nucleated RBC Nucleated RBC % (auto) Smear Tech's Comments Sodium Potassium Chloride Carbon Dioxide Anion Gap BUN Creatinine Estim Creat Clear Calc Estimated GFR Random Glucose Lactic Acid Calcium Magnesium Total Bilirubin Direct Bilirubin AST ALT Alkaline Phosphatase Troponin I High Sens 84.3 H B-Natriuretic Peptide 72 Total Protein Albumin Urine Color Urine Appearance Urine pH Ur Specific [place] Urine Protein Urine Glucose (UA) Urine Ketones Urine Blood Urine Nitrite Ur Leukocyte Esterase Urine RBC Urine WBC Ur Squamous Epith Cells Urine Bacteria Hyaline Casts COVID-19 (CARISSA) Negative COVID-19 Clin Com See Note 05/21/22 05/21/22 05/22/22 14:35 16:41 08:01 WBC 12.9 H RBC 4.17 L Hgb 13.0 L Hct 39.1 L MCV 93.8 MCH 31.2 MCHC 33.2 RDW 12.8 Plt Count 270 MPV 10.6 Immature Gran % (Auto) Neut % (Auto) Lymph % (Auto) [place] % (Auto) Eos % (Auto) Baso % (Auto) Lymph # (Auto) [place] # (Auto) Eos # (Auto) Baso # (Auto) Abs Immat Gran (auto) Absolute Neuts (auto) Absolute Nucleated RBC 0.000 Nucleated RBC % (auto) 0.0 Smear Tech's Comments Sodium Potassium Chloride Carbon Dioxide Anion Gap BUN Creatinine Estim Creat Clear Calc Estimated GFR Random Glucose Lactic Acid Calcium Magnesium Total Bilirubin Direct Bilirubin AST ALT Alkaline Phosphatase Troponin I High Sens 84.4 H B-Natriuretic Peptide Total Protein Albumin Urine Color [place] A Urine Appearance Clear Urine pH 5.5 Ur Specific [place] 1.010 Urine Protein Negative Urine Glucose (UA) Negative Urine Ketones 15 Urine Blood Negative Urine Nitrite Positive H Ur Leukocyte Esterase Trace H Urine RBC 0-2 Urine WBC 0-5 Ur Squamous Epith Cells 0-2 Urine Bacteria None Seen Hyaline Casts 0-2 COVID-19 (CARISSA) COVID-19 Clin Com 05/22/22 08:01 WBC RBC Hgb Hct MCV MCH MCHC RDW Plt Count MPV Immature Gran % (Auto) Neut % (Auto) Lymph % (Auto) [place] % (Auto) Eos % (Auto) Baso % (Auto) Lymph # (Auto) [place] # (Auto) Eos # (Auto) Baso # (Auto) Abs Immat Gran (auto) Absolute Neuts (auto) Absolute Nucleated RBC Nucleated RBC % (auto) Smear Tech's Comments Sodium 139 Potassium 4.3 Chloride 95 L Carbon Dioxide 34 H Anion Gap 14 BUN 16 Creatinine 0.87 Estim Creat Clear Calc 64.8 Estimated GFR > 60 Random Glucose 146 H Lactic Acid Calcium 9.5 D Magnesium Total Bilirubin Direct Bilirubin AST ALT Alkaline Phosphatase Troponin I High Sens B-Natriuretic Peptide Total Protein Albumin Urine Color Urine Appearance Urine pH Ur Specific [place] Urine Protein Urine Glucose (UA) Urine Ketones Urine Blood Urine Nitrite Ur Leukocyte Esterase Urine RBC Urine WBC Ur Squamous Epith Cells Urine Bacteria Hyaline Casts COVID-19 (CARISSA) COVID-19 Clin Com Imaging Radiologist's impression: Impressions Chest X-Ray 05/21/22 14:38 IMPRESSION: No acute abnormality of chest. Chest CTA 05/21/22 16:19 IMPRESSION: No evidence of PE. No evidence of aortic dissection or aneurysm. Diffuse centrilobular emphysema without acute process. There is moderate left apical parenchymal thickening and scarring. Sclerotic densities T6 and T10 vertebra likely small bone islands. VTE: Negative. Assessment and Plan (1) Abnormal EKG: Status: Acute (2) CAD (coronary artery disease): Status: Acute Plan [age] year gentleman with reported history of coronary disease and PCI while he was in be a new here when 6-7 years ago. At that time he was being assessed for lung transplant. He has advanced lung disease. He did not get transplant. His presentation is mostly due to COPD exacerbation and urinary retention. He has anterior T-wave inversion as well as inversion in 1 aVL. These changes can be due to pulmonary disease which he has advanced lung disease currently. In any case he does not need any further workup for these EKG changes currently. I will recommend getting his old EKGs from [facility] for comparison. 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 Thank you for allowing me to participate in the care of your patient. Please feel free to contact me if you have any questions. Procedures Date of Service Date of Service: 05/22/22
--- NOTE | 2022-05-22 14:42 | P.PNIM_ITS ---
Subjective Subjective Date of Service: 05/22/22 Interval History: copd excerebation,uti, urine retention,? Hematuria Review of Systems Shortness of breath seems similar to yesterday, has cough Denies any chest pain or abdominal pain or nausea vomiting Physical Exam Vital Signs: Vital Signs: Last Vital Signs Temp 98.3 F 05/21/22 20:22 Pulse 118 H 05/22/22 11:17 Resp 17 05/22/22 11:17 BP 120/63 05/22/22 09:08 Pulse Ox 97 05/22/22 09:08 O2 Del Method 05/22/22 09:08 O2 Flow Rate 2 05/22/22 09:08 Oxygen Flow Rate 3 05/21/22 13:44 BMI result Body Mass Index 22.6 Appearance: Alert.? Oriented X3.? sob?improvin cvs: rrr, [id number] . res: diminshed breath sounds , has b/l wheezing abd: no rebound or guarding ,nt, bs present. ext pulses present , no cyanosis. neuro: axo3 , nonfocal. Objective Data Active Medications Acyclovir (Acyclovir 200 Mg Capsule) 400 mg PO BID [facility] Last Admin: 05/22/22 09:05 Dose: 400 mg Documented By: REINALDO Albuterol/Ipratropium (Albuterol/Iprat 2.5/0.5mg 3 Ml Ampul.Neb) 3 ml INHALE Q4H [facility] Last Admin: 05/22/22 11:17 Dose: 3 ml Documented By: EFRAIN Albuterol/Ipratropium (Albuterol/Iprat 2.5/0.5mg 3 Ml Ampul.Neb) 3 ml INHALE Q3H PRN PRN Reason: sob Ascorbic Acid (Ascorbic Acid 500 Mg Tablet) 500 mg PO BID [facility] Last Admin: 05/22/22 08:52 Dose: 500 mg Documented By: REINALDO Aspirin (Aspirin 81 Mg Tab.Chew) 81 mg PO DAILY [facility] Last Admin: 05/22/22 09:03 Dose: Not Given Documented By: REINALDO Non-Admin Reason: See Note Atorvastatin Calcium (Atorvastatin Calcium 80 Mg Tablet) 80 mg PO DAILY [facility] Last Admin: 05/22/22 08:52 Dose: 80 mg Documented By: REINALDO Bupropion HCl (Bupropion Hcl 75 Mg Tablet) 75 mg PO DAILY [facility] Last Admin: 05/22/22 09:04 Dose: 75 mg Documented By: REINALDO Calcium Carbonate (Calcium Carbonate 500 Mg Tablet) 1,000 mg PO DAILY [facility] Last Admin: 05/22/22 09:04 Dose: 1,000 mg Documented By: REINALDO Docusate Sodium (Docusate Sodium 100 Mg Capsule) 100 mg PO BID PRN PRN Reason: soften stool Finasteride (Finasteride 5 Mg Tablet) 5 mg PO DAILY [facility] Last Admin: 05/22/22 08:52 Dose: 5 mg Documented By: REINALDO Furosemide (Furosemide 20 Mg Tablet) [facility]; Protocol Last Admin: 05/22/22 10:22 Dose: 20 mg Documented By: REINALDO Furosemide (Furosemide 40 Mg Tablet) 40 mg PO MOWEFR [facility]; Protocol Last Admin: 05/22/22 09:10 Dose: Not Given Documented By: REINALDO Non-Admin Reason: See Note Comments: not given on prior shift Guaifenesin (Guaifenesin 200 Mg/10 Ml 10 Ml Liquid) 400 ml PO BID PRN PRN Reason: Cough Ceftriaxone Sodium 1 gm/ (Sodium Chloride) 50 mls @ 100 mls/hr IV Q24H [facility] Last Infusion: 05/21/22 22:37 Dose: 0 mls/hr Documented By: ERIK Lidocaine (Lidocaine 4 % Patch Adh..Patch) 1 patch TRANSDERMA DAILY [facility] Last Admin: 05/22/22 08:53 Dose: 1 patch Documented By: REINALDO Loratadine (Loratadine 10 Mg Tablet) 10 mg PO DAILY PRN PRN Reason: Allergy Symptoms Lorazepam (Lorazepam 0.5 Mg Tablet) 0.5 mg PO TID PRN PRN Reason: Anxiety Last Admin: 05/21/22 22:47 Dose: 0.5 mg Documented By: ERIK Losartan Potassium (Losartan Potassium 25 Mg Tablet) 25 mg PO DAILY [facility]; Protocol Last Admin: 05/22/22 08:53 Dose: 25 mg Documented By: REINALDO Methimazole (Methimazole 5 Mg Tablet) 5 mg PO MOWEFR [facility] Last Admin: 05/22/22 09:10 Dose: Not Given Documented By: REINALDO Non-Admin Reason: not given on prior shift Methylprednisolone Sodium Succinate (Methylprednisolone Sod Succ 40 Mg/Ml Vial) 40 mg IVPUSH BID [facility] Last Admin: 05/22/22 08:52 Dose: 40 mg Documented By: REINALDO Metoprolol Succinate (Metoprolol Succinate Er 50 Mg Tab.Er.24h) 50 mg PO DAILY [facility]; Protocol Last Admin: 05/22/22 08:53 Dose: 50 mg Documented By: REINALDO Nitroglycerin (Nitroglycerin 0.4 Mg Tab.Subl) 0.4 mg SUBLINGUAL Q5M PRN PRN Reason: Chest Pain Omeprazole (Omeprazole 20 Mg Capsule.Dr) 20 mg PO DAILY [facility] Last Admin: 05/22/22 08:52 Dose: 20 mg Documented By: REINALDO Pharmacy Consult (Consult Rx Perform Med Rec) 1 each MISCELLANE ONCE PRN PRN Reason: Consult order Pharmacy Consult (Consult Rx Perform Med Rec) 1 each MISCELLANE ONCE PRN PRN Reason: Consult order Polyethylene Glycol (Polyethylene Glycol 3350 17 Gm Powd.Pack) 17 gm PO DAILY [facility] Last Admin: 05/22/22 08:53 Dose: 17 gm Documented By: REINALDO Quetiapine Fumarate (Quetiapine Fumarate 100 Mg Tablet) 100 mg PO BEDTIME PRN PRN Reason: Sleep Last Admin: 05/21/22 22:46 Dose: 100 mg Documented By: ERIK Senna (Sennosides 8.6 Mg Tablet) 8.6 mg PO BID PRN PRN Reason: Constipation Sodium Chloride (0.9 % Sodium Chloride Flush 3 Ml Syringe) 3 ml IVFLUSH QSHIFT [facility] Last Admin: 05/22/22 09:11 Dose: 3 ml Documented By: REINALDO Tamsulosin HCl (Tamsulosin Hcl 0.4 Mg Capsule) 0.4 mg PO DAILY [facility] Last Admin: 05/22/22 08:53 Dose: 0.4 mg Documented By: RENIALDO Temazepam (Temazepam 15 Mg Capsule) 15 mg PO BEDTIME PRN PRN Reason: Sleep Last Admin: 05/21/22 22:47 Dose: 15 mg Documented By: ERIK Tramadol HCl (Tramadol Hcl 50 Mg Tablet) 50 mg PO DAILY PRN PRN Reason: Pain, Severe (Pain Scale 7-10) Vitamin D (Cholecalciferol (Vitamin D3) 25 Mcg Tablet) 25 mcg PO DAILY [facility] Last Admin: 05/22/22 08:52 Dose: 25 mcg Documented By: REINALDO Labs CBC & Chem 7: 05/22/22 08:01 05/22/22 08:01 Labs: Laboratory Results - last 24 hr 05/21/22 05/21/22 05/21/22 14:33 14:34 14:34 MCV 93.6 MCH 31.0 MCHC 33.2 RDW 12.9 Plt Count 290 MPV 10.3 Immature Gran % (Auto) 0.8 H Neut % (Auto) 62.7 Lymph % (Auto) 16.6 L [place] % (Auto) 14.2 H Eos % (Auto) 5.0 H Baso % (Auto) 0.7 Lymph # (Auto) 1.9 [place] # (Auto) 1.6 H Eos # (Auto) 0.6 H Baso # (Auto) 0.1 Abs Immat Gran (auto) 0.09 H Absolute Neuts (auto) 7.1 Absolute Nucleated RBC 0.000 Nucleated RBC % (auto) 0.0 Smear Tech's Comments VERIFIED Anion Gap 19 Estim Creat Clear Calc 52.7 Estimated GFR > 60 Random Glucose 117 H Lactic Acid 1.0 Calcium 10.9 H Magnesium 1.7 Total Bilirubin 0.3 Direct Bilirubin 0.2 AST 33 ALT 18 Alkaline Phosphatase 80 B-Natriuretic Peptide Total Protein 6.9 Albumin 4.1 Urine Color Urine Appearance Urine pH Ur Specific [place] Urine Protein Urine Glucose (UA) Urine Ketones Urine Blood Urine Nitrite Ur Leukocyte Esterase Urine RBC Urine WBC Ur Squamous Epith Cells Urine Bacteria Hyaline Casts COVID-19 ([facility]) COVID-19 Clin Com 05/21/22 05/21/22 05/21/22 14:34 14:34 14:35 MCV MCH MCHC RDW Plt Count MPV Immature Gran % (Auto) Neut % (Auto) Lymph % (Auto) [place] % (Auto) Eos % (Auto) Baso % (Auto) Lymph # (Auto) [place] # (Auto) Eos # (Auto) Baso # (Auto) Abs Immat Gran (auto) Absolute Neuts (auto) Absolute Nucleated RBC Nucleated RBC % (auto) Smear Tech's Comments Anion Gap Estim Creat Clear Calc Estimated GFR Random Glucose Lactic Acid Calcium Magnesium Total Bilirubin Direct Bilirubin AST ALT Alkaline Phosphatase B-Natriuretic Peptide 72 Total Protein Albumin Urine Color [place] A Urine Appearance Clear Urine pH 5.5 Ur Specific [place] 1.010 Urine Protein Negative Urine Glucose (UA) Negative Urine Ketones 15 Urine Blood Negative Urine Nitrite Positive H Ur Leukocyte Esterase Trace H Urine RBC 0-2 Urine WBC 0-5 Ur Squamous Epith Cells 0-2 Urine Bacteria None Seen Hyaline Casts 0-2 COVID-19 ([facility]) Negative COVID-19 Clin Com See Note 05/22/22 05/22/22 08:01 08:01 MCV 93.8 MCH 31.2 MCHC 33.2 RDW 12.8 Plt Count 270 MPV 10.6 Immature Gran % (Auto) Neut % (Auto) Lymph % (Auto) [place] % (Auto) Eos % (Auto) Baso % (Auto) Lymph # (Auto) [place] # (Auto) Eos # (Auto) Baso # (Auto) Abs Immat Gran (auto) Absolute Neuts (auto) Absolute Nucleated RBC 0.000 Nucleated RBC % (auto) 0.0 Smear Tech's Comments Anion Gap 14 Estim Creat Clear Calc 64.8 Estimated GFR > 60 Random Glucose 146 H Lactic Acid Calcium 9.5 D Magnesium Total Bilirubin Direct Bilirubin AST ALT Alkaline Phosphatase B-Natriuretic Peptide Total Protein Albumin Urine Color Urine Appearance Urine pH Ur Specific [place] Urine Protein Urine Glucose (UA) Urine Ketones Urine Blood Urine Nitrite Ur Leukocyte Esterase Urine RBC Urine WBC Ur Squamous Epith Cells Urine Bacteria Hyaline Casts COVID-19 ([facility]) COVID-19 Clin Com Assessment and Plan (1) Urinary tract infection: Status: Acute (2) Acute exacerbation of chronic obstructive pulmonary disease: Status: Acute (3) Acute retention of urine: Status: Acute (4) Hematuria: Status: Acute Plan 76-year-old male with history of 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 Admitting for COPD exacerbation and UTI. 1. COPD exacerbation who is oxygen dependent: initail tachycaria/Tachypnea probably related to COPD. Still short of breath, talking in small sentences. Started on nebs, steroids, antibiotics Blood cultures sent 2. ?? CAD had heart stents 6 years ago and also has history of [id number]: Medical reconciliation still pending Patient has mild elevated troponin, also has EKG changes as above cardiology eval-possible ekg old changes ,trops flat, patient asymptomatic. continue aspirin statin. 3. BPH: Was draining almost 1 L of urine. Status post Rodas Continue Flomax and finasteride May need outpatient follow-up with Urology. 4. Hypercholesteremia and hypothyroidism as well as hypertension: Home med reconciliation is still pending 5. UTI: Patient was given cefepime initially, started on ceftriaxone, urine culture ordered.? Blood culture also sent. 6.Hematuria:multifactorial:uti/urinary retention,? irritation due to rodas continue to moniter DVT prophylaxis: hold subQ Lovenox due to hematuria,mech devices Patient has COPD exacerbation/UTI-started on nebs, steroids and antibiotics, hematuria monitering. Quality Stroke Does the patient have a stroke diagnosis?: No VTE Prior VTE?: No VTE Risk Level:: Medical - moderate - high VTE Device Contraindication: N/A - Device Ordered VTE Drug Contraindication: N/A - Med Ordered
--- NOTE | 2022-05-22 20:10 | PC.NURSE ---
Attempted to call report on pt at 8:10am .
--- NOTE | 2022-05-22 20:44 | PC.NURSE ---
Attempt to give report for a second time, pt being transported and Rn can call to receive report
[2022-05-22] MEDS: cefTRIAXone sodium 1 GM in 0.9 % Sodium Chloride 50 ML IV (20:48)
[2022-05-22] MEDS: LORazepam 0.5 MG TABLET PO (22:28)
[2022-05-22] MEDS: Temazepam 15 MG CAPSULE PO (22:28)
[2022-05-23 06:29] LABS: Hematocrit 38.6 % (42.0-52.0); Hemoglobin 13.1 g/dl (14.0-18.0); Mean Corpuscular HGB Conc 33.9 g/dl (31.0-36.0); Mean Corpuscular Hemoglobin 31.7 pg (27.0-33.0); Mean Corpuscular Volume 93.5 fL (80.0-98.0); Mean Platelet Volume 10.7 fL (9.4-12.4); Platelet Count 275 X10*3/uL (160-400); Red Blood Count 4.13 X10*6/uL (4.60-5.80); Red Cell Distribution Width 13.1 % (11.0-16.0); White Blood Count 22.9 X10*3/uL (4.8-10.8)
[2022-05-23 07:15] LABS: Estimated Average Glucose 111 mg/dL; Hemoglobin A1c % 5.5 %
[2022-05-23 08:00] VITALS: BP 125/65; PULSE 81; RESP 20; TEMP 36.6; O2SAT 96
[2022-05-23] MEDS: Lidocaine 4 % Patch ADH..PATCH 1 PATCH TRANSDERMA (08:06)
[2022-05-23] MEDS: Finasteride 5 MG TABLET PO (08:07)
[2022-05-23] MEDS: Acyclovir 200 MG CAPSULE 400 MG PO ×2 (08:07→20:43)
[2022-05-23] MEDS: Aspirin 81 MG TAB.CHEW PO (08:07)
[2022-05-23] MEDS: Tamsulosin HCL 0.4 MG CAPSULE PO (08:08)
[2022-05-23] MEDS: Omeprazole 20 MG CAPSULE.DR PO (08:08)
[2022-05-23] MEDS: Cholecalciferol (Vitamin D3) 25 MCG TABLET PO (08:08)
[2022-05-23] MEDS: Atorvastatin Calcium 80 MG TABLET PO (08:08)
[2022-05-23] MEDS: polyethylene glycoL 3350 17 GM POWD.PACK PO (08:08)
[2022-05-23] MEDS: Metoprolol Succinate ER 50 MG TAB.ER.24H PO (08:08)
[2022-05-23] MEDS: buPROPion HCL 75 MG TABLET PO (08:08)
[2022-05-23] MEDS: Ascorbic Acid 500 MG TABLET PO ×2 (08:08→20:43)
[2022-05-23] MEDS: Losartan Potassium 25 MG TABLET PO (08:08)
[2022-05-23] MEDS: 0.9 % Sodium Chloride Flush 3 ML SYRINGE IVFLUSH ×3 (08:16→20:43)
[2022-05-23] MEDS: methylPREDNISolone Sod Succ 40 MG/ML VIAL IVPUSH ×2 (08:17→20:43)
[2022-05-23] MEDS: Furosemide 20 MG TABLET PO (10:29)
--- NOTE | 2022-05-23 11:05 | HO.PM.IMPN ---
Subjective Subjective Date of Service: 05/23/22 Interval History: copd excerebation,uti, urine retention,?? Hematuria Review of Systems Shortness of breath seems similar to yesterday, still talking in very short sentences. Hematuria butt improving Denies any chest pain or abdominal pain, has cough Physical Exam Vital Signs: Vital Signs: Last Vital Signs Temp 97.9 F 05/23/22 08:00 Pulse 81 05/23/22 08:00 Resp 20 05/23/22 08:00 BP 125/65 05/23/22 08:00 Pulse Ox 96 05/23/22 08:00 O2 Del Method 05/23/22 08:00 O2 Flow Rate 3 05/23/22 08:00 Oxygen Flow Rate 3 05/21/22 13:44 BMI result Body Mass Index 23.4 Appearance: Alert.? Oriented X3.? sob?similar to yesterday cvs: [id number], [id number] . res: diminshed breath sounds , has b/l wheezing abd: no rebound or guarding ,nt, bs present. ext pulses present , no cyanosis. neuro: axo3 , nonfocal. Objective Data Active Medications Acyclovir (Acyclovir 200 Mg Capsule) 400 mg PO BID [facility] Last Admin: 05/23/22 08:07 Dose: 400 mg Documented By: KENDALL Albuterol/Ipratropium (Albuterol/Iprat 2.5/0.5mg 3 Ml Ampul.Neb) 3 ml INHALE Q3H PRN PRN Reason: sob Albuterol/Ipratropium (Albuterol/Iprat 2.5/0.5mg 3 Ml Ampul.Neb) 3 ml INHALE RQ4H [facility] Ascorbic Acid (Ascorbic Acid 500 Mg Tablet) 500 mg PO BID [facility] Last Admin: 05/23/22 08:08 Dose: 500 mg Documented By: KENDALL Aspirin (Aspirin 81 Mg Tab.Chew) 81 mg PO DAILY [facility] Last Admin: 05/23/22 08:07 Dose: 81 mg Documented By: KENDALL Atorvastatin Calcium (Atorvastatin Calcium 80 Mg Tablet) 80 mg PO DAILY [facility] Last Admin: 05/23/22 08:08 Dose: 80 mg Documented By: KENDALL Bupropion HCl (Bupropion Hcl 75 Mg Tablet) 75 mg PO DAILY [facility] Last Admin: 05/23/22 08:08 Dose: 75 mg Documented By: KENDALL Calcium Carbonate (Calcium Carbonate 500 Mg Tablet) 1,000 mg PO DAILY [facility] Last Admin: 05/23/22 08:07 Dose: 1,000 mg Documented By: KENDALL Docusate Sodium (Docusate Sodium 100 Mg Capsule) 100 mg PO BID PRN PRN Reason: soften stool Finasteride (Finasteride 5 Mg Tablet) 5 mg PO DAILY [facility] Last Admin: 05/23/22 08:07 Dose: 5 mg Documented By: KENDALL Furosemide (Furosemide 20 Mg Tablet) 20 mg PO [facility]; Protocol Last Admin: 05/23/22 10:29 Dose: 20 mg Documented By: KENDALL Furosemide (Furosemide 40 Mg Tablet) 40 mg PO MOWEFR [facility]; Protocol Last Admin: 05/22/22 09:10 Dose: Not Given Documented By: REINALDO Non-Admin Reason: See Note Comments: not given on prior shift Guaifenesin (Guaifenesin 200 Mg/10 Ml 10 Ml Liquid) 400 ml PO BID PRN PRN Reason: Cough Ceftriaxone Sodium 1 gm/ (Sodium Chloride) 50 mls @ 100 mls/hr IV Q24H [facility] Last Infusion: 05/22/22 21:19 Dose: 0 mls/hr Documented By: MARLENE Lidocaine (Lidocaine 4 % Patch Adh..Patch) 1 patch TRANSDERMA DAILY [facility] Last Admin: 05/23/22 08:06 Dose: 1 patch Documented By: KENDALL Loratadine (Loratadine 10 Mg Tablet) 10 mg PO DAILY PRN PRN Reason: Allergy Symptoms Lorazepam (Lorazepam 0.5 Mg Tablet) 0.5 mg PO TID PRN PRN Reason: Anxiety Last Admin: 05/22/22 22:28 Dose: 0.5 mg Documented By: MARLENE Losartan Potassium (Losartan Potassium 25 Mg Tablet) 25 mg PO DAILY [facility]; Protocol Last Admin: 05/23/22 08:08 Dose: 25 mg Documented By: KENDALL Methimazole (Methimazole 5 Mg Tablet) 5 mg PO MOWEFR [facility] Last Admin: 05/22/22 09:10 Dose: Not Given Documented By: REINALDO Non-Admin Reason: not given on prior shift Methylprednisolone Sodium Succinate (Methylprednisolone Sod Succ 40 Mg/Ml Vial) 40 mg IVPUSH BID [facility] Last Admin: 05/23/22 08:17 Dose: 40 mg Documented By: KENDALL Metoprolol Succinate (Metoprolol Succinate Er 50 Mg Tab.Er.24h) 50 mg PO DAILY [facility]; Protocol Last Admin: 05/23/22 08:08 Dose: 50 mg Documented By: KENDALL Nitroglycerin (Nitroglycerin 0.4 Mg Tab.Subl) 0.4 mg SUBLINGUAL Q5M PRN PRN Reason: Chest Pain Omeprazole (Omeprazole 20 Mg Capsule.Dr) 20 mg PO DAILY [facility] Last Admin: 05/23/22 08:08 Dose: 20 mg Documented By: KENDALL Pharmacy Consult (Consult Rx Perform Med Rec) 1 each MISCELLANE ONCE PRN PRN Reason: Consult order Pharmacy Consult (Consult Rx Perform Med Rec) 1 each MISCELLANE ONCE PRN PRN Reason: Consult order Polyethylene Glycol (Polyethylene Glycol 3350 17 Gm Powd.Pack) 17 gm PO DAILY [facility] Last Admin: 05/23/22 08:08 Dose: 17 gm Documented By: KENDALL Quetiapine Fumarate (Quetiapine Fumarate 100 Mg Tablet) 100 mg PO BEDTIME PRN PRN Reason: Sleep Last Admin: 05/21/22 22:46 Dose: 100 mg Documented By: ERIK Senna (Sennosides 8.6 Mg Tablet) 8.6 mg PO BID PRN PRN Reason: Constipation Sodium Chloride (0.9 % Sodium Chloride Flush 3 Ml Syringe) 3 ml IVFLUSH QSHIFT [facility] Last Admin: 05/23/22 08:16 Dose: 3 ml Documented By: KENDALL Tamsulosin HCl (Tamsulosin Hcl 0.4 Mg Capsule) 0.4 mg PO DAILY [facility] Last Admin: 05/23/22 08:08 Dose: 0.4 mg Documented By: KENDALL Temazepam (Temazepam 15 Mg Capsule) 15 mg PO BEDTIME PRN PRN Reason: Sleep Last Admin: 05/22/22 22:28 Dose: 15 mg Documented By: MARLENE Tramadol HCl (Tramadol Hcl 50 Mg Tablet) 50 mg PO DAILY PRN PRN Reason: Pain, Severe (Pain Scale 7-10) Vitamin D (Cholecalciferol (Vitamin D3) 25 Mcg Tablet) 25 mcg PO DAILY [facility] Last Admin: 05/23/22 08:08 Dose: 25 mcg Documented By: KENDALL Labs CBC & Chem 7: 05/23/22 05:53 05/22/22 08:01 Labs: Laboratory Results - last 24 hr 05/23/22 05/23/22 05:53 05:53 MCV 93.5 MCH 31.7 MCHC 33.9 RDW 13.1 Plt Count 275 MPV 10.7 Absolute Nucleated RBC 0.000 Nucleated RBC % (auto) 0.0 Estimat Average Glucose 111 Hemoglobin A1c % 5.5 Microbiology Microbiology Results: Microbiology 05/21/22 14:44 Blood Culture - Preliminary Blood - Venous No growth after 24 hours. 05/21/22 14:34 Blood Culture - Preliminary Blood - Venous No growth after 24 hours. Assessment and Plan (1) Urinary tract infection: Status: Acute (2) Acute exacerbation of chronic obstructive pulmonary disease: Status: Acute (3) Acute retention of urine: Status: Acute (4) Hematuria: Status: Acute Plan 76-year-old male with history of 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 Admitting for COPD exacerbation and UTI. 1. COPD exacerbation who is oxygen dependent: still sob similar to yesterday wbc trending up possible sec to uti/steriods Still short of breath, talking in small sentences. Started on nebs, steroids, antibiotics Blood cultures sent 2. ?? CAD had heart stents 6 years ago and also has history of [id number]-Jzvbj: Medical reconciliation still pending Patient has mild elevated troponin, also has EKG changes as above cardiology eval-possible ekg old changes ,trops flat, patient asymptomatic. continue aspirin statin. 3. BPH: Was draining almost 1 L of urine. Status post Rodas Continue Flomax and finasteride May need outpatient follow-up with Urology. 4. Hypercholesteremia and hypothyroidism as well as hypertension: Home med reconciliation is still pending 5. UTI: Patient was given cefepime initially, started on ceftriaxone, urine culture ordered.? Blood culture also sent. 6.Hematuria:multifactorial:uti/urinary retention,? irritation due to rodas continue to moniter DVT prophylaxis: hold subQ Lovenox due to hematuria,mech devices Patient has COPD exacerbation/UTI-started on nebs, steroids and antibiotics, hematuria monitering. Quality Stroke Does the patient have a stroke diagnosis?: No VTE Prior VTE?: No VTE Risk Level:: Medical - moderate - high VTE Device Contraindication: N/A - Device Ordered VTE Drug Contraindication: N/A - Med Ordered
[2022-05-23 11:35] VITALS: PULSE 104; RESP 18; O2SAT 94
[2022-05-23] MEDS: Albuterol/Iprat 2.5/0.5MG 3 ML AMPUL.NEB INHALE ×2 (11:35→19:58)
[2022-05-23 11:56] VITALS: BP 133/81; PULSE 61; RESP 20; TEMP 36.9; O2SAT 94
[2022-05-23 16:42] VITALS: BP 144/74; PULSE 95; RESP 15; TEMP 37.1; O2SAT 97
[2022-05-23] MEDS: cefTRIAXone sodium 1 GM in 0.9 % Sodium Chloride 50 ML IV (18:21)
[2022-05-23 19:14] VITALS: BP 138/74; PULSE 88; RESP 15; TEMP 36.9; O2SAT 95
[2022-05-23 20:31] VITALS: PULSE 88; RESP 15; O2SAT 95
[2022-05-23] MEDS: Temazepam 15 MG CAPSULE PO (22:45)
[2022-05-23] MEDS: Docusate Sodium 100 MG CAPSULE PO (22:45)
[2022-05-23] MEDS: Sennosides 8.6 MG TABLET PO (22:45)
[2022-05-24] VITALS (11 sets, daily range): BP systolic 117–150; BP diastolic 62–87; PULSE 58–112; RESP 17–18; TEMP 36.1–36.9; O2SAT 93–98
--- NOTE | 2022-05-24 07:00 | CA_ITS ---
Transthoracic Echocardiogram Patient (Last, First, Middle): Beny Han R Gender: Male Date of : 1945 Age: 76 Procedure Date: 05/24/2022 Procedure Type: Transthoracic Echocardiogram Location: S3E Height: 167.64 cm Weight: 65.77 kg BSA: 1.74 m2 Heart Rate: bpm BP: 117 / 73 mmHg Crm Consultant: ALVIN Referring MD: Prince Joseph MD Hoistman: Ranjan Rodríguez MD Symptoms: elevated trop/ekg changes Study Quality: Fair/Contrast ECG Rhythm: Sinus Conclusions: - 1. Technically limited study despite use of contrast agent 2. LV systolic function appears to be normal with impaired relaxation filling pattern 3. RV appears to be mildly enlarged with preserved contractility 4. Normal cardiac valvular Doppler is 5. Upper limits are normal RV systolic pressure 6. No gross pericardial effusion Findings Procedure Information Contrast agent, definity, is being given per protocol without apparent complications. Left Ventricle Normal left ventricular size, thickness, and systolic function. The visually estimated ejection fraction is between 55-60%. Regional wall motion abnormalities can not be excluded due to suboptimal endocardial definition. Spectral Doppler is indicative of an impaired relaxation filling pattern. Right Ventricle RV size appears to be mildly enlarged. RV systolic function appears to be preserved Atria The left atrium is normal in size. Interatrial shunt cannot be excluded. The right atrium is normal in size. Aortic Valve The aortic valve was not well visualized. There is mild calcification of the aortic valve. There is no aortic valve stenosis. There is no aortic valve regurgitation. Mitral Valve The mitral valve was not well visualized. There is mild anterior and posterior mitral leaflet thickening. There is trace mitral valve regurgitation. There is no mitral valve stenosis. Pulmonic Valve The pulmonic valve was not well visualized. Tricuspid Valve Likely normal tricuspid valve structure and function. There is mild tricuspid valve regurgitation. Normal right atrial pressure. There is no evidence of pulmonary hypertension. Great Vessels The aorta was not well visualized. The pulmonary artery was not well visualized. Venous The inferior vena cava is normal in size and collapses greater than 50% with inspiration. Pericardium/Pleural There is no evidence of pericardial effusion. Prior Study Comparison No prior study available for comparison. Measurements 2D Linear Measurements IVSd: 0.69 0.6-0.9/0.6-1.0 cm LVIDd: 4.13 3.9-5.3/4.2-5.9 cm LVIDd Index: 2.37 2.4-3.2/2.2-3.1 cm/m2 LVIDs: 3.02 2.0-3.6 cm LVPWd: 0.89 0.7-1.1 cm LA Diam: 2.80 2.7-3.8/3.0-4.0 cm LAIDs Index: 1.61 1.5-2.3 cm/m2 LV Mass: 120.76 67-162/88-224 g LV Mass Index: 69.40 43-95/49-115 g/m2 LVOT Diam: 2.00 3.0+(-)1.3 cm Mitral Valve MV Pk E: 0.58 MV PK A: 0.77 MV Decel Time: 289.00 E/A: 0.80 E'Lateral: 5.00 E'Medial: 6.31 E/E' Med: 9.10 E/E' Lat: 11.50 PHT: 85.00 MVA PHT: 2.59 Decel [place]: 1.99 LVOT LVOT Diam: 2.00 LVOT Area: 3.14 Diastolic Function MV Pk E: 0.58 MV Pk A: 0.77 E/A: 0.80 E'Medial: 6.31 E/E' Med: 9.10 E' Laterial: 5.00 E/E' Lat: 11.50 Tricuspid Valve TR Pk Gregory: 2.91 TR Pk Grad: 34.00 RA Press: 3.00 RVSP: 37.00 Great Vessels Aorta Sinus of Valsalva: 3.00 2.0-3.5 cm Ao Asc: 3.20 2.1-3.4 cm Updated in Other Vendor System with Status of Final Ranjan Rodríguez MD electronically signed on 05/24/2022 12:03:52 PM with status of Final
[2022-05-24 08:00] LABS: Hematocrit 39.9 % (42.0-52.0); Hemoglobin 13.1 g/dl (14.0-18.0); Mean Corpuscular HGB Conc 32.8 g/dl (31.0-36.0); Mean Corpuscular Hemoglobin 31.3 pg (27.0-33.0); Mean Corpuscular Volume 95.2 fL (80.0-98.0); Mean Platelet Volume 10.7 fL (9.4-12.4); Platelet Count 281 X10*3/uL (160-400); Red Blood Count 4.19 X10*6/uL (4.60-5.80); Red Cell Distribution Width 13.1 % (11.0-16.0); White Blood Count 22.5 X10*3/uL (4.8-10.8)
[2022-05-24] MEDS: Albuterol/Iprat 2.5/0.5MG 3 ML AMPUL.NEB INHALE ×5 (08:38→23:16)
--- NOTE | 2022-05-24 09:34 | MHC.CDI.CONC ---
CDI Concurrent Query Documentation Clarification: PHYSICIAN'S DOCUMENTATION REQUEST Date of Query: 05/24/2234 Patient Name: Beny Han Admit Date: 05/21/22 Dear Doctor, A review of the medical record indicates additional documentation may be needed. Please review below and update the documentation accordingly. Clinical Indicators: Risk Factors/Clinical Indicators/Treatments COPD Exacerbation, oxygen dependent. Using accessory muscles, wheezing, tachypnea, shortness of breath, likely due to chronic lung disease. RR 21/23 HR 113 On 3 liters NC. Recognized standard criteria for respiratory failure includes: (Source: [facility] Hospitalist Jul 2013) ABGs (1 or more) Symptoms: ? PO2 <60 or RA SpO2 <91% ? Tachypnea, SOB, dyspnea ? PcO2 >50 and pH <7.35 ? Pallor or cyanosis ? pO2 decrease or pcO2 increase ? Anxiety or restlessness by 10 mm/Hg from baseline if known ? Use of accessory muscles ? Retractions (grunting in newborns) ? Unable to speak in complete sentences P/F ratio < 300 Supplemental O2 requirement of 40% or more Intubation is not required Clarify which of the following accurately represents the patient's respiratory status: Chronic respiratory failure, Oxygen dependent Acute respiratory failure Acute on chronic respiratory failure Other (please specify) Unable to determine Use of terms such as suspected, likely, concern for, or probable (associated with a specific diagnosis that is being evaluated, monitored, or treated as if it exists) are acceptable and can be coded in the inpatient setting, when documented at the time of discharge. Thank you, Linda Dailey [facility], [facility] Extension: [phone] Please use your independent medical judgment in providing your response. THIS QUERY IS PART OF THE PERMANENT MEDICAL RECORD Provider Response: Other Other Diagnosis: Chronic respiratory failure oxygen dependent.
[2022-05-24] MEDS: Lidocaine 4 % Patch ADH..PATCH 1 PATCH TRANSDERMA (09:36)
[2022-05-24] MEDS: buPROPion HCL 75 MG TABLET PO (09:36)
[2022-05-24] MEDS: Losartan Potassium 25 MG TABLET PO (09:36)
[2022-05-24] MEDS: Aspirin 81 MG TAB.CHEW PO (09:36)
[2022-05-24] MEDS: methylPREDNISolone Sod Succ 40 MG/ML VIAL IVPUSH ×2 (09:36→23:37)
[2022-05-24] MEDS: Omeprazole 20 MG CAPSULE.DR PO (09:36)
[2022-05-24] MEDS: Ascorbic Acid 500 MG TABLET PO ×2 (09:36→21:42)
[2022-05-24] MEDS: Tamsulosin HCL 0.4 MG CAPSULE PO (09:36)
[2022-05-24] MEDS: polyethylene glycoL 3350 17 GM POWD.PACK PO (09:36)
[2022-05-24] MEDS: Cholecalciferol (Vitamin D3) 25 MCG TABLET PO (09:36)
[2022-05-24] MEDS: Atorvastatin Calcium 80 MG TABLET PO (09:36)
[2022-05-24] MEDS: Acyclovir 200 MG CAPSULE 400 MG PO ×2 (09:37→21:42)
[2022-05-24] MEDS: Metoprolol Succinate ER 50 MG TAB.ER.24H PO (09:37)
[2022-05-24] MEDS: Finasteride 5 MG TABLET PO (09:37)
[2022-05-24] MEDS: 0.9 % Sodium Chloride Flush 3 ML SYRINGE IVFLUSH ×2 (09:40→18:39)
[2022-05-24] MEDS: Furosemide 40 MG TABLET PO (09:40)
[2022-05-24] MEDS: methIMAzole 5 MG TABLET PO (09:42)
--- NOTE | 2022-05-24 12:46 | P.PNIM_ITS ---
Subjective Subjective Date of Service: 05/24/22 Interval History: copd excerebation,uti, urine retention,?? Hematuria Review of Systems still has hematuria sob similar to yesterday has cough Physical Exam Vital Signs: Vital Signs: Last Vital Signs Temp 98.4 F 05/24/22 11:59 Pulse 58 05/24/22 12:15 Resp 18 05/24/22 12:15 BP 150/66 H 05/24/22 11:59 Pulse Ox 96 05/24/22 11:59 O2 Del Method 05/24/22 11:59 O2 Flow Rate 3 05/24/22 11:59 Oxygen Flow Rate 3 05/21/22 13:44 BMI result Body Mass Index 23.4 Appearance: Alert.? Oriented X3.? sob?similar to yesterday cvs: rrr, [id number] . res: diminshed breath sounds , has b/l wheezing abd: no rebound or guarding ,nt, bs present. ext pulses present , no cyanosis. neuro: axo3 , nonfoc Objective Data Active Medications Acyclovir (Acyclovir 200 Mg Capsule) 400 mg PO BID [facility] Last Admin: 05/24/22 09:37 Dose: 400 mg Documented By: LUL Albuterol/Ipratropium (Albuterol/Iprat 2.5/0.5mg 3 Ml Ampul.Neb) 3 ml INHALE Q3H PRN PRN Reason: sob Albuterol/Ipratropium (Albuterol/Iprat 2.5/0.5mg 3 Ml Ampul.Neb) 3 ml INHALE RQ4H [facility] Last Admin: 05/24/22 12:15 Dose: 3 ml Documented By: KATHERYN Ascorbic Acid (Ascorbic Acid 500 Mg Tablet) 500 mg PO BID [facility] Last Admin: 05/24/22 09:36 Dose: 500 mg Documented By: LUL Aspirin (Aspirin 81 Mg Tab.Chew) 81 mg PO DAILY [facility] Last Admin: 05/24/22 09:36 Dose: 81 mg Documented By: LUL Atorvastatin Calcium (Atorvastatin Calcium 80 Mg Tablet) 80 mg PO DAILY [facility] Last Admin: 05/24/22 09:36 Dose: 80 mg Documented By: LUL Bupropion HCl (Bupropion Hcl 75 Mg Tablet) 75 mg PO DAILY [facility] Last Admin: 05/24/22 09:36 Dose: 75 mg Documented By: LUL Calcium Carbonate (Calcium Carbonate 500 Mg Tablet) 1,000 mg PO DAILY [facility] Last Admin: 05/24/22 09:36 Dose: 1,000 mg Documented By: LUL Docusate Sodium (Docusate Sodium 100 Mg Capsule) 100 mg PO BID PRN PRN Reason: soften stool Last Admin: 05/23/22 22:45 Dose: 100 mg Documented By: CASTSARAH Finasteride (Finasteride 5 Mg Tablet) 5 mg PO DAILY [facility] Last Admin: 05/24/22 09:37 Dose: 5 mg Documented By: LUL Furosemide (Furosemide 20 Mg Tablet) 20 mg PO SUTUTHSA [facility]; Protocol Last Admin: 05/23/22 10:29 Dose: 20 mg Documented By: KENDALL Furosemide (Furosemide 40 Mg Tablet) 40 mg PO MOWEFR [facility]; Protocol Last Admin: 05/24/22 09:40 Dose: 40 mg Documented By: LUL Guaifenesin (Guaifenesin 200 Mg/10 Ml 10 Ml Liquid) 400 ml PO BID PRN PRN Reason: Cough Ceftriaxone Sodium 1 gm/ (Sodium Chloride) 50 mls @ 100 mls/hr IV Q24H [facility] Last Infusion: 05/23/22 18:53 Dose: 0 mls/hr Documented By: KIZZY Lidocaine (Lidocaine 4 % Patch Adh..Patch) 1 patch TRANSDERMA DAILY [facility] Last Admin: 05/24/22 09:36 Dose: 1 patch Documented By: LUL Loratadine (Loratadine 10 Mg Tablet) 10 mg PO DAILY PRN PRN Reason: Allergy Symptoms Lorazepam (Lorazepam 0.5 Mg Tablet) 0.5 mg PO TID PRN PRN Reason: Anxiety Last Admin: 05/22/22 22:28 Dose: 0.5 mg Documented By: MARLENE Losartan Potassium (Losartan Potassium 25 Mg Tablet) 25 mg PO DAILY [facility]; Protocol Last Admin: 05/24/22 09:36 Dose: 25 mg Documented By: LUL Methimazole (Methimazole 5 Mg Tablet) 5 mg PO MOWEFR [facility] Last Admin: 05/24/22 09:42 Dose: 5 mg Documented By: LUL Methylprednisolone Sodium Succinate (Methylprednisolone Sod Succ 40 Mg/Ml Vial) 40 mg IVPUSH BID [facility] Last Admin: 05/24/22 09:36 Dose: 40 mg Documented By: LUL Metoprolol Succinate (Metoprolol Succinate Er 50 Mg Tab.Er.24h) 50 mg PO DAILY [facility]; Protocol Last Admin: 05/24/22 09:37 Dose: 50 mg Documented By: LUL Nitroglycerin (Nitroglycerin 0.4 Mg Tab.Subl) 0.4 mg SUBLINGUAL Q5M PRN PRN Reason: Chest Pain Omeprazole (Omeprazole 20 Mg Capsule.Dr) 20 mg PO DAILY [facility] Last Admin: 05/24/22 09:36 Dose: 20 mg Documented By: LUL Pharmacy Consult (Consult Rx Perform Med Rec) 1 each MISCELLANE ONCE PRN PRN Reason: Consult order Pharmacy Consult (Consult Rx Perform Med Rec) 1 each MISCELLANE ONCE PRN PRN Reason: Consult order Polyethylene Glycol (Polyethylene Glycol 3350 17 Gm Powd.Pack) 17 gm PO DAILY [facility] Last Admin: 05/24/22 09:36 Dose: 17 gm Documented By: LUL Quetiapine Fumarate (Quetiapine Fumarate 100 Mg Tablet) 100 mg PO BEDTIME PRN PRN Reason: Sleep Last Admin: 05/21/22 22:46 Dose: 100 mg Documented By: ERIK Senna (Sennosides 8.6 Mg Tablet) 8.6 mg PO BID PRN PRN Reason: Constipation Last Admin: 05/23/22 22:45 Dose: 8.6 mg Documented By: KADI Sodium Chloride (0.9 % Sodium Chloride Flush 3 Ml Syringe) 3 ml [facility] [place] Last Admin: 05/24/22 09:40 Dose: 3 ml Documented By: LUL Tamsulosin HCl (Tamsulosin Hcl 0.4 Mg Capsule) 0.4 mg PO DAILY [facility] Last Admin: 05/24/22 09:36 Dose: 0.4 mg Documented By: LUL Temazepam (Temazepam 15 Mg Capsule) 15 mg PO BEDTIME PRN PRN Reason: Sleep Last Admin: 05/23/22 22:45 Dose: 15 mg Documented By: KADI Tramadol HCl (Tramadol Hcl 50 Mg Tablet) 50 mg PO DAILY PRN PRN Reason: Pain, Severe (Pain Scale 7-10) Vitamin D (Cholecalciferol (Vitamin D3) 25 Mcg Tablet) 25 mcg PO DAILY [facility] Last Admin: 05/24/22 09:36 Dose: 25 mcg Documented By: LUL Labs CBC & Chem 7: 05/24/22 07:52 05/22/22 08:01 Labs: Laboratory Results - last 24 hr 05/24/22 07:52 MCV 95.2 MCH 31.3 MCHC 32.8 RDW 13.1 Plt Count 281 MPV 10.7 Absolute Nucleated RBC 0.000 Nucleated RBC % (auto) 0.0 Microbiology Microbiology Results: Microbiology 05/21/22 14:44 Blood Culture - Preliminary Blood - Venous No growth after 48 hours. 05/21/22 14:34 Blood Culture - Preliminary Blood - Venous No growth after 48 hours. Assessment and Plan (1) Hematuria: Status: Acute (2) Abnormal EKG: Status: Acute (3) Urinary tract infection: Status: Acute (4) Acute retention of urine: Status: Acute (5) Acute exacerbation of chronic obstructive pulmonary disease: Status: Acute Plan 76-year-old male with history of 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 Admitting for COPD exacerbation and UTI. 1. COPD exacerbation ch repsiratory failure sec to copd,oxygen dependent: still sob similar to yesterday wbc trending up possible sec to uti/steriods Still short of breath, talking in small sentences. Started on nebs, steroids, antibiotics Blood cultures sent 2. ?? CAD had heart stents 6 years ago and also has history of [id number]: Medical reconciliation still pending Patient has mild elevated troponin, also has EKG changes as above ? cardiology eval-possible ekg old changes ,trops flat, patient asymptomatic. continue? aspirin statin. 3. BPH: Was draining almost 1 L of urine. Status post Rodas Continue Flomax and finasteride May need outpatient follow-up with Urology. 4. Hypercholesteremia and hypothyroidism as well as hypertension: Home med reconciliation is still pending 5. UTI: Patient was given cefepime initially, started on ceftriaxone, urine culture ordered.? Blood culture also sent. 6.Hematuria:multifactorial:uti/urinary retention,? irritation due to rodas continue to moniter added urology eval DVT prophylaxis: hold subQ Lovenox due to hematuria,mech devices Patient has COPD exacerbation/UTI-started on nebs, steroids and antibiotics, hematuria monitering. Quality Stroke Does the patient have a stroke diagnosis?: No VTE Prior VTE?: No VTE Risk Level:: Medical - moderate - high VTE Device Contraindication: N/A - Device Ordered VTE Drug Contraindication: N/A - Med Ordered
[2022-05-24] MEDS: cefTRIAXone sodium 1 GM in 0.9 % Sodium Chloride 50 ML IV (18:36)
[2022-05-24] MEDS: Sennosides 8.6 MG TABLET PO (21:42)
[2022-05-24] MEDS: Docusate Sodium 100 MG CAPSULE PO (21:42)
[2022-05-24] MEDS: QUEtiapine Fumarate 100 MG TABLET PO (23:37)
[2022-05-24] MEDS: Temazepam 15 MG CAPSULE PO (23:37)
[2022-05-24] MEDS: LORazepam 0.5 MG TABLET PO (23:37)
[2022-05-25] VITALS (12 sets, daily range): BP systolic 118–161; BP diastolic 58–92; PULSE 56–100; RESP 14–19; TEMP 36.2–36.8; O2SAT 90–98
[2022-05-25] MEDS: methylPREDNISolone Sod Succ 40 MG/ML VIAL IVPUSH ×2 (09:41→19:35)
[2022-05-25] MEDS: Finasteride 5 MG TABLET PO (09:42)
[2022-05-25] MEDS: Furosemide 20 MG TABLET PO (09:42)
[2022-05-25] MEDS: Acyclovir 200 MG CAPSULE 400 MG PO ×2 (09:42→19:35)
[2022-05-25] MEDS: buPROPion HCL 75 MG TABLET PO (09:42)
[2022-05-25] MEDS: Ascorbic Acid 500 MG TABLET PO ×2 (09:42→19:36)
[2022-05-25] MEDS: Omeprazole 20 MG CAPSULE.DR PO (09:42)
[2022-05-25] MEDS: Atorvastatin Calcium 80 MG TABLET PO (09:42)
[2022-05-25] MEDS: Tamsulosin HCL 0.4 MG CAPSULE PO (09:42)
[2022-05-25] MEDS: Cholecalciferol (Vitamin D3) 25 MCG TABLET PO (09:42)
[2022-05-25] MEDS: Lidocaine 4 % Patch ADH..PATCH 1 PATCH TRANSDERMA (09:43)
[2022-05-25] MEDS: 0.9 % Sodium Chloride Flush 3 ML SYRINGE IVFLUSH ×3 (09:43→19:37)
[2022-05-25] MEDS: polyethylene glycoL 3350 17 GM POWD.PACK PO (09:43)
[2022-05-25] MEDS: Aspirin 81 MG TAB.CHEW PO (09:43)
[2022-05-25] MEDS: Losartan Potassium 25 MG TABLET PO (09:43)
[2022-05-25] MEDS: Metoprolol Succinate ER 50 MG TAB.ER.24H PO (09:43)
[2022-05-25] MEDS: Albuterol/Iprat 2.5/0.5MG 3 ML AMPUL.NEB INHALE ×5 (10:01→23:31)
--- NOTE | 2022-05-25 10:50 | HO.PM.IMPN ---
Subjective Subjective Date of Service: 05/25/22 Physical Exam Vital Signs: Vital Signs: Last Vital Signs Temp 98.0 F 05/25/22 07:36 Pulse 86 05/25/22 10:01 Resp 18 05/25/22 10:01 BP 126/92 H 05/25/22 07:36 Pulse Ox 92 05/25/22 07:36 O2 Del Method 05/25/22 07:36 O2 Flow Rate 2.0 05/25/22 07:36 Oxygen Flow Rate 3 05/21/22 13:44 BMI result Body Mass Index 23.4 Objective Data Active Medications Acyclovir (Acyclovir 200 Mg Capsule) 400 mg PO BID [facility] Last Admin: 05/25/22 09:42 Dose: 400 mg Documented By: HENRY Albuterol/Ipratropium (Albuterol/Iprat 2.5/0.5mg 3 Ml Ampul.Neb) 3 ml INHALE Q3H PRN PRN Reason: sob Albuterol/Ipratropium (Albuterol/Iprat 2.5/0.5mg 3 Ml Ampul.Neb) 3 ml INHALE RQ4H [facility] Last Admin: 05/25/22 10:01 Dose: 3 ml Documented By: GÓMEZ Ascorbic Acid (Ascorbic Acid 500 Mg Tablet) 500 mg PO BID [facility] Last Admin: 05/25/22 09:42 Dose: 500 mg Documented By: HENRY Aspirin (Aspirin 81 Mg Tab.Chew) 81 mg PO DAILY [facility] Last Admin: 05/25/22 09:43 Dose: 81 mg Documented By: HENRY Atorvastatin Calcium (Atorvastatin Calcium 80 Mg Tablet) 80 mg PO DAILY [facility] Last Admin: 05/25/22 09:42 Dose: 80 mg Documented By: HENRY Bupropion HCl (Bupropion Hcl 75 Mg Tablet) 75 mg PO DAILY [facility] Last Admin: 05/25/22 09:42 Dose: 75 mg Documented By: HENRY Calcium Carbonate (Calcium Carbonate 500 Mg Tablet) 1,000 mg PO DAILY [facility] Last Admin: 05/25/22 09:42 Dose: 1,000 mg Documented By: HENRY Docusate Sodium (Docusate Sodium 100 Mg Capsule) 100 mg PO BID PRN PRN Reason: soften stool Last Admin: 05/24/22 21:42 Dose: 100 mg Documented By: MAHENDRA Finasteride (Finasteride 5 Mg Tablet) 5 mg PO DAILY [facility] Last Admin: 05/25/22 09:42 Dose: 5 mg Documented By: HENRY Furosemide (Furosemide 20 Mg Tablet) 20 mg PO [facility]; Protocol Last Admin: 05/25/22 09:42 Dose: 20 mg Documented By: HENRY [facility]urosemide ([facility] 40 Mg Tablet) [facility]; [facility] Last Admin: 05/24/22 09:40 Dose: 40 mg Documented By: LUL Guaifenesin (Guaifenesin 200 Mg/10 Ml 10 Ml Liquid) 400 ml PO BID PRN PRN Reason: Cough Ceftriaxone Sodium 1 gm/ (Sodium Chloride) 50 mls @ 100 mls/hr IV Q24H [facility] Last Infusion: 05/24/22 23:36 Dose: 0 mls/hr Documented By: MAHENDRA Lidocaine (Lidocaine 4 % Patch Adh..Patch) 1 patch TRANSDERMA DAILY [facility] Last Admin: 05/25/22 09:43 Dose: 1 patch Documented By: HENRY Loratadine (Loratadine 10 Mg Tablet) 10 mg PO DAILY PRN PRN Reason: Allergy Symptoms Lorazepam (Lorazepam 0.5 Mg Tablet) 0.5 mg PO TID PRN PRN Reason: Anxiety Last Admin: 05/24/22 23:37 Dose: 0.5 mg Documented By: MAHENDRA Losartan Potassium (Losartan Potassium 25 Mg Tablet) 25 mg PO DAILY [facility]; Protocol Last Admin: 05/25/22 09:43 Dose: 25 mg Documented By: HENRY Methimazole ([facility] 5 Mg Tablet) [facility] Last Admin: 05/24/22 09:42 Dose: 5 mg Documented By: LUL Methylprednisolone Sodium Succinate (Methylprednisolone Sod Succ 40 Mg/Ml Vial) 40 mg IVPUSH BID [facility] Last Admin: 05/25/22 09:41 Dose: 40 mg Documented By: HENRY Metoprolol Succinate (Metoprolol Succinate Er 50 Mg Tab.Er.24h) 50 mg PO DAILY [facility]; Protocol Last Admin: 05/25/22 09:43 Dose: 50 mg Documented By: HENRY Nitroglycerin (Nitroglycerin 0.4 Mg Tab.Subl) 0.4 mg SUBLINGUAL Q5M PRN PRN Reason: Chest Pain Omeprazole (Omeprazole 20 Mg Capsule.) 20 mg PO DAILY [facility] Last Admin: 05/25/22 09:42 Dose: 20 mg Documented By: HENRY Pharmacy Consult (Consult Rx Perform Med Rec) 1 each MISCELLANE ONCE PRN PRN Reason: Consult order Pharmacy Consult (Consult Rx Perform Med Rec) 1 each MISCELLANE ONCE PRN PRN Reason: Consult order Polyethylene Glycol (Polyethylene Glycol 3350 17 Gm Powd.Pack) 17 gm PO DAILY [facility] Last Admin: 05/25/22 09:43 Dose: 17 gm Documented By: HENRY Quetiapine Fumarate (Quetiapine Fumarate 100 Mg Tablet) 100 mg PO BEDTIME PRN PRN Reason: Sleep Last Admin: 05/24/22 23:37 Dose: 100 mg Documented By: MAHENDRA Senna (Sennosides 8.6 Mg Tablet) 8.6 mg PO BID PRN PRN Reason: Constipation Last Admin: 05/24/22 21:42 Dose: 8.6 mg Documented By: MAHENDRA Sodium Chloride (0.9 % Sodium Chloride Flush 3 Ml Syringe) 3 ml IVFLUSH QSHIFT [facility] Last Admin: 05/25/22 09:43 Dose: 3 ml Documented By: HENRY Tamsulosin HCl (Tamsulosin Hcl 0.4 Mg Capsule) 0.4 mg PO DAILY [facility] Last Admin: 05/25/22 09:42 Dose: 0.4 mg Documented By: HENRY Temazepam (Temazepam 15 Mg Capsule) 15 mg PO BEDTIME PRN PRN Reason: Sleep Last Admin: 05/24/22 23:37 Dose: 15 mg Documented By: MAHENDRA Tramadol HCl (Tramadol Hcl 50 Mg Tablet) 50 mg PO DAILY PRN PRN Reason: Pain, Severe (Pain Scale 7-10) Vitamin D (Cholecalciferol (Vitamin D3) 25 Mcg Tablet) 25 mcg PO DAILY [facility] Last Admin: 05/25/22 09:42 Dose: 25 mcg Documented By: HENRY Labs CBC & Chem 7: 05/24/22 07:52 05/22/22 08:01 Assessment and Plan (1) Hematuria: Status: Acute (2) Abnormal EKG: Status: Acute (3) Urinary tract infection: Status: Acute (4) Acute retention of urine: Status: Acute (5) Acute exacerbation of chronic obstructive pulmonary disease: Status: Acute Plan 76-year-old male with history of 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 Admitting for COPD exacerbation and UTI. 1. COPD exacerbation--improved, change to oral steroid, continue nebs change to Ceftriaxone to po Ceftin 2. ?? CAD had heart stents 6 years ago and also has history of Qtnze-Ixawyisse-Wosof: continue statin, ALLISON, BB, ASA Patient has mild elevated troponin, also has EKG changes as above--will get old ecg for comparaison, repeat ecg cardiology following, no further testing at this time 3. BPH: Was draining almost 1 L of urine. Status post Rodas Continue Flomax and finasteride May need outpatient follow-up with Urology. 4. Hypercholesteremia and hypothyroidism as well as hypertension: Home med reconciliation is still pending 5. UTI: Patient was given cefepime initially, started on ceftriaxone, urine culture ordered.? Blood culture also sent. 6.Hematuria:multifactorial:uti/urinary retention,? irritation due to rodas continue to moniter added urology eval DVT prophylaxis: hold subQ Lovenox due to hematuria,mech devices Patient has COPD exacerbation/UTI-started on nebs, steroids and antibiotics, hematuria monitering. Quality Stroke Does the patient have a stroke diagnosis?: No VTE Prior VTE?: No VTE Risk Level:: Medical - moderate - high VTE Device Contraindication: N/A - Device Ordered VTE Drug Contraindication: N/A - Med Ordered
--- NOTE | 2022-05-25 12:20 | PM.UROCN ---
History of Present Illness Consult details Consult date: 05/25/22 Narrative: Consulting complained - BPH with urinary retention and UTI 76-year-old male Presents the hospital with 3 day history of difficulty with urination hematuria Found to have urinary retention with a 1000 cc in Lamas catheter placed Concomitant urinary tract infection antibiotic started - nitrite positive however culture negative No urine culture performed Baseline diagnosis of BPH Per med list should be on combination tamsulosin and finasteride Recommend 4 week follow-up cystoscopy Review of Systems Constitutional: Constitutional: Reports as per HPI and Reports no additional constitutional complaints Cardiovascular: Cardiovascular: Reports as per HPI and Reports no additional cardiovascular complaints Respiratory: Respiratory: Reports as per HPI and Reports no additional respiratory complaints Gastrointestinal: Gastrointestinal: Reports as per HPI and Reports no additional gastrointestinal complaints Genitourinary: Genitourinary: Reports as per HPI Musculoskeletal: Musculoskeletal: Reports no additional musculoskeletal complaints and Reports as per HPI Neurologic: Reports system reviewed and no additional complaints, except as documented and Reports as per HPI [facility] Social History Social History (Updated 05/21/22 @ 19:07 by Prince Joseph MD) Household Members: Children and Other Household Members Other:: Caregiver, son and daughter Housing: House Alcohol intake: never Patient Tobacco Use Status: Former Tobacco user service: Yes Current occupational status: disabled Meds Allergies Allergy/AdvReac Type Severity Reaction Status Date / Time No Known Allergies Allergy Unverified 05/29/20 16:52 [No Known Allergies*] Active Medications: Current Medications Acyclovir (Acyclovir 200 Mg Capsule) 400 mg PO BID [facility] Last Admin: 05/25/22 09:42 Dose: 400 mg Albuterol/Ipratropium (Albuterol/Iprat 2.5/0.5mg 3 Ml Ampul.Neb) 3 ml INHALE Q3H PRN PRN Reason: sob Albuterol/Ipratropium (Albuterol/Iprat 2.5/0.5mg 3 Ml Ampul.Neb) 3 ml INHALE RQ4H [facility] Last Admin: 05/25/22 10:01 Dose: 3 ml Ascorbic Acid (Ascorbic Acid 500 Mg Tablet) 500 mg PO BID [facility] Last Admin: 05/25/22 09:42 Dose: 500 mg Aspirin (Aspirin 81 Mg Tab.Chew) 81 mg PO DAILY [facility] Last Admin: 05/25/22 09:43 Dose: 81 mg Atorvastatin Calcium (Atorvastatin Calcium 80 Mg Tablet) 80 mg PO DAILY [facility] Last Admin: 05/25/22 09:42 Dose: 80 mg Bupropion HCl (Bupropion Hcl 75 Mg Tablet) 75 mg PO DAILY [facility] Last Admin: 05/25/22 09:42 Dose: 75 mg Calcium Carbonate (Calcium Carbonate 500 Mg Tablet) 1,000 mg PO DAILY [facility] Last Admin: 05/25/22 09:42 Dose: 1,000 mg Docusate Sodium (Docusate Sodium 100 Mg Capsule) 100 mg PO BID PRN PRN Reason: soften stool Last Admin: 05/24/22 21:42 Dose: 100 mg Finasteride (Finasteride 5 Mg Tablet) 5 mg PO DAILY [facility] Last Admin: 05/25/22 09:42 Dose: 5 mg Furosemide (Furosemide 20 Mg Tablet) 20 mg PO SUTUTHSA [facility]; Protocol Last Admin: 05/25/22 09:42 Dose: 20 mg Furosemide (Furosemide 40 Mg Tablet) 40 mg PO MOWEFR [facility]; Protocol Last Admin: 05/24/22 09:40 Dose: 40 mg Guaifenesin (Guaifenesin 200 Mg/10 Ml 10 Ml Liquid) 400 ml PO BID PRN PRN Reason: Cough Ceftriaxone Sodium 1 gm/ (Sodium Chloride) 50 mls @ 100 mls/hr IV Q24H [facility] Last Infusion: 05/24/22 23:36 Dose: Infused Lidocaine (Lidocaine 4 % Patch Adh..Patch) 1 patch TRANSDERMA DAILY [facility] Last Admin: 05/25/22 09:43 Dose: 1 patch Loratadine (Loratadine 10 Mg Tablet) 10 mg PO DAILY PRN PRN Reason: Allergy Symptoms Lorazepam (Lorazepam 0.5 Mg Tablet) 0.5 mg PO TID PRN PRN Reason: Anxiety Last Admin: 05/24/22 23:37 Dose: 0.5 mg Losartan Potassium (Losartan Potassium 25 Mg Tablet) 25 mg PO DAILY [facility]; Protocol Last Admin: 05/25/22 09:43 Dose: 25 mg Methimazole (Methimazole 5 Mg Tablet) 5 mg PO MOWEFR [facility] Last Admin: 05/24/22 09:42 Dose: 5 mg Methylprednisolone Sodium Succinate (Methylprednisolone Sod Succ 40 Mg/Ml Vial) 40 mg IVPUSH BID [facility] Last Admin: 05/25/22 09:41 Dose: 40 mg Metoprolol Succinate (Metoprolol Succinate Er 50 Mg Tab.Er.24h) 50 mg PO DAILY [facility]; Protocol Last Admin: 05/25/22 09:43 Dose: 50 mg Nitroglycerin (Nitroglycerin 0.4 Mg Tab.Subl) 0.4 mg SUBLINGUAL Q5M PRN PRN Reason: Chest Pain Omeprazole (Omeprazole 20 Mg Capsule.Dr) 20 mg PO DAILY [facility] Last Admin: 05/25/22 09:42 Dose: 20 mg Pharmacy Consult (Consult Rx Perform Med Rec) 1 each MISCELLANE ONCE PRN PRN Reason: Consult order Pharmacy Consult (Consult Rx Perform Med Rec) 1 each MISCELLANE ONCE PRN PRN Reason: Consult order Polyethylene Glycol (Polyethylene Glycol 3350 17 Gm Powd.Pack) 17 gm PO DAILY [facility] Last Admin: 05/25/22 09:43 Dose: 17 gm Quetiapine Fumarate (Quetiapine Fumarate 100 Mg Tablet) 100 mg PO BEDTIME PRN PRN Reason: Sleep Last Admin: 05/24/22 23:37 Dose: 100 mg Senna (Sennosides 8.6 Mg Tablet) 8.6 mg PO BID PRN PRN Reason: Constipation Last Admin: 05/24/22 21:42 Dose: 8.6 mg Sodium Chloride (0.9 % Sodium Chloride Flush 3 Ml Syringe) 3 ml IVFLUSH QSHIFT [facility] Last Admin: 05/25/22 09:43 Dose: 3 ml Tamsulosin HCl (Tamsulosin Hcl 0.4 Mg Capsule) 0.4 mg PO DAILY [facility] Last Admin: 05/25/22 09:42 Dose: 0.4 mg Temazepam (Temazepam 15 Mg Capsule) 15 mg PO BEDTIME PRN PRN Reason: Sleep Last Admin: 05/24/22 23:37 Dose: 15 mg Tramadol HCl (Tramadol Hcl 50 Mg Tablet) 50 mg PO DAILY PRN PRN Reason: Pain, Severe (Pain Scale 7-10) Vitamin D (Cholecalciferol (Vitamin D3) 25 Mcg Tablet) 25 mcg PO DAILY [facility] Last Admin: 05/25/22 09:42 Dose: 25 mcg Home Medications Medication Instructions Recorded Confirmed Last Taken Type Lactobacillus acidophilus 1 tab PO DAILY 05/21/22 05/21/22 05/21/22 History acyclovir 200 mg capsule 400 mg PO BID 05/21/22 05/21/22 05/21/22 History albuterol sulfate 90 mcg/actuation 2 puff inhalation QID PRN 05/21/22 05/21/22 Unknown History aerosol inhaler (ProAir HFA) Shortness Of Breath alendronate 70 mg tablet (Fosamax) 70 mg PO PEREYRA 05/21/22 05/21/22 05/16/22 History ascorbic acid (vitamin C) 500 mg 500 mg PO BID 05/21/22 05/21/22 05/21/22 History tablet (Vitamin C) aspirin 81 mg chewable tablet 81 mg PO DAILY 05/21/22 05/21/22 05/21/22 History budesonide 0.25 mg/2 mL suspension 0.25 mg inhalation BID 05/21/22 05/21/22 05/21/22 History for nebulization bupropion HCl 75 mg tablet 75 mg PO DAILY 05/21/22 05/21/22 05/21/22 History calcium carbonate 500 mg calcium 1,000 mg PO DAILY 05/21/22 05/21/22 05/21/22 History (1,250 mg) tablet cholecalciferol (vitamin D3) 25 25 mcg PO DAILY 05/21/22 05/21/22 05/21/22 History mcg (1,000 unit) tablet (Vitamin D3) docusate sodium 100 mg capsule 100 mg PO BID PRN soften stool 05/21/22 05/21/22 Unknown History (Colace) finasteride 5 mg tablet (Proscar) 5 mg PO DAILY 05/21/22 05/21/22 05/21/22 History furosemide 20 mg tablet (Lasix) 20 mg PO SUTUTHSA 05/21/22 05/21/22 05/20/22 History furosemide 20 mg tablet (Lasix) 40 mg PO MOWEFR 05/21/22 05/21/22 05/21/22 History guaifenesin 200 mg tablet 400 mg PO BID PRN Cough 05/21/22 05/21/22 Unknown History ibuprofen 400 mg tablet 400 mg PO Q8H PRN Pain 05/21/22 05/21/22 Unknown History lidocaine 5 % topical patch 1 patch topical DAILY 05/21/22 05/21/22 05/21/22 History (Lidoderm) loratadine 10 mg tablet (Claritin) 10 mg PO DAILY PRN Allergy Symptoms 05/21/22 05/21/22 Unknown History lorazepam 0.5 mg tablet 0.5 mg PO TID PRN Anxiety 05/21/22 05/21/22 Unknown History losartan 25 mg tablet 25 mg PO DAILY 05/21/22 05/21/22 05/21/22 History methimazole 5 mg tablet 5 mg PO MOWEFR 05/21/22 05/21/22 05/21/22 History metoprolol succinate 50 mg 50 mg PO DAILY 05/21/22 05/21/22 05/21/22 History tablet,extended release 24 hr nitroglycerin 0.4 mg sublingual 0.4 mg sublingual Q5M PRN Chest 05/21/22 05/21/22 Unknown History tablet Pain omeprazole 20 mg capsule,delayed 20 mg PO DAILY 05/21/22 05/21/22 05/21/22 History release polyethylene glycol 3350 17 gram 17 g PO DAILY 05/21/22 05/21/22 05/21/22 History oral powder packet (Miralax) quetiapine 100 mg tablet 100 mg PO BEDTIME PRN Sleep 05/21/22 05/21/22 Unknown History rosuvastatin 40 mg tablet (Crestor) 20 mg PO DAILY 05/21/22 05/21/22 05/21/22 History sennosides 8.6 mg tablet (senna) 8.6 mg PO BID PRN Constipation 05/21/22 05/21/22 Unknown History tamsulosin 0.4 mg capsule (Flomax) 0.4 mg PO DAILY 05/21/22 05/21/22 05/21/22 History tiotropium 2.5 mcg-olodaterol 2.5 2 puff inhalation DAILY 05/21/22 05/21/22 05/21/22 History mcg/actuation mist for inhalation tramadol 50 mg tablet 50 mg PO DAILY PRN Pain 05/21/22 05/21/22 Unknown History zaleplon 10 mg capsule 10 mg PO BEDTIME PRN Sleep 05/21/22 05/21/22 Unknown History Physical Exam Vital Signs: Vital Signs: Last Vital Signs Temp 97.4 F 05/25/22 11:25 Pulse 97 05/25/22 11:25 Resp 17 05/25/22 11:25 BP 130/86 05/25/22 11:25 Pulse Ox 93 05/25/22 11:25 O2 Del Method 05/25/22 11:25 O2 Flow Rate 3.0 05/25/22 11:25 Oxygen Flow Rate 3 05/21/22 13:44 BMI result Body Mass Index 23.4 Const: General: cooperative, healthy appearing, comfortable and no acute distress Orientation/consciousness: patient oriented x3 HEENT: Face and sinus: Yes normal facial exam Mouth: moist mucous membranes Neck: Neck: Yes normal visual inspection, Yes full ROM and Yes trachea midline Chest: Chest palpation & inspection: normal inspection of the chest Resp: Effort & Inspection: normal respiratory effort, able to speak in complete sentences and no respiratory distress GI: Inspection: Yes normal to inspection Back/Spine/Pelvis: Cervical Spine: normal cervical lordosis Thoracic/Lumbar Spine: thoracic and lumbar spine normal to inspection Skin: General skin exam: no rashes or lesions noted Neuro: General: patient oriented x3, tone normal and moves all extremities Extrem: General: Yes normal to inspection and Yes capillary refill normal Results Labs Result diagrams: 05/24/22 07:52 05/22/22 08:01 Labs: Urine 05/21/22 Range/Units 14:35 Urine Color [place] A Urine Appearance Clear Urine pH 5.5 (5.0-9.0) Ur Specific [place] 1.010 (1.005-1.025) Urine Protein Negative (Neg-Trace) mg/dL Urine Glucose (UA) Negative (Negative) mg/dL All other labs normal. Assessment and Plan (1) Acute retention of urine: Status: Acute (2) Urinary tract infection: Status: Acute Plan Four week follow-up voiding trial Procedures Date of Service Date of Service: 05/25/22
--- NOTE | 2022-05-25 12:56 | MHC.CM.PN ---
PLAN IS FOR DISCHARGE Tuesday05/26/22 PATIENT IS IMPROVING CLINICALLY.
[2022-05-25] MEDS: cefTRIAXone sodium 1 GM in 0.9 % Sodium Chloride 50 ML IV (18:16)
[2022-05-26] VITALS (11 sets, daily range): BP systolic 129–152; BP diastolic 60–93; PULSE 69–116; RESP 16–24; TEMP 36.4–37.1; O2SAT 94–99
[2022-05-26] MEDS: Omeprazole 20 MG CAPSULE.DR PO (09:01)
[2022-05-26] MEDS: Ascorbic Acid 500 MG TABLET PO ×2 (09:01→21:37)
[2022-05-26] MEDS: Cholecalciferol (Vitamin D3) 25 MCG TABLET PO (09:01)
[2022-05-26] MEDS: Finasteride 5 MG TABLET PO (09:01)
[2022-05-26] MEDS: Tamsulosin HCL 0.4 MG CAPSULE PO (09:01)
[2022-05-26] MEDS: Losartan Potassium 25 MG TABLET PO (09:01)
[2022-05-26] MEDS: buPROPion HCL 75 MG TABLET PO (09:01)
[2022-05-26] MEDS: Acyclovir 200 MG CAPSULE 400 MG PO ×2 (09:01→21:37)
[2022-05-26] MEDS: Atorvastatin Calcium 80 MG TABLET PO (09:01)
[2022-05-26] MEDS: Aspirin 81 MG TAB.CHEW PO (09:01)
[2022-05-26] MEDS: Metoprolol Succinate ER 50 MG TAB.ER.24H PO (09:01)
[2022-05-26] MEDS: polyethylene glycoL 3350 17 GM POWD.PACK PO (09:02)
[2022-05-26] MEDS: 0.9 % Sodium Chloride Flush 3 ML SYRINGE IVFLUSH ×3 (09:12→21:38)
[2022-05-26] MEDS: methIMAzole 5 MG TABLET PO (09:14)
[2022-05-26] MEDS: Furosemide 40 MG TABLET PO (09:14)
[2022-05-26] MEDS: methylPREDNISolone Sod Succ 40 MG/ML VIAL IVPUSH ×2 (09:14→21:37)
[2022-05-26] MEDS: Lidocaine 4 % Patch ADH..PATCH 1 PATCH TRANSDERMA (09:15)
[2022-05-26] MEDS: Albuterol/Iprat 2.5/0.5MG 3 ML AMPUL.NEB INHALE ×4 (09:20→23:33)
--- NOTE | 2022-05-26 10:57 | P.PNIM_ITS ---
Subjective Subjective Date of Service: 05/26/22 Interval History: Seen in f/u for Physical Exam Vital Signs: Vital Signs: Last Vital Signs Temp 98.0 F 05/26/22 07:47 Pulse 92 05/26/22 09:20 Resp 19 05/26/22 09:20 BP 148/60 H 05/26/22 08:58 Pulse Ox 95 05/26/22 08:58 O2 Del Method 05/26/22 07:47 O2 Flow Rate 3 05/26/22 07:47 Oxygen Flow Rate 3 05/21/22 13:44 BMI result Body Mass Index 23.4 Objective Data Active Medications Acyclovir (Acyclovir 200 Mg Capsule) 400 mg PO BID [facility] Last Admin: 05/26/22 09:01 Dose: 400 mg Documented By: SNEHA Albuterol/Ipratropium (Albuterol/Iprat 2.5/0.5mg 3 Ml Ampul.Neb) 3 ml INHALE Q3H PRN PRN Reason: sob Albuterol/Ipratropium (Albuterol/Iprat 2.5/0.5mg 3 Ml Ampul.Neb) 3 ml INHALE RQ4H [facility] Last Admin: 05/26/22 09:20 Dose: 3 ml Documented By: GÓMEZ Ascorbic Acid (Ascorbic Acid 500 Mg Tablet) 500 mg PO BID [facility] Last Admin: 05/26/22 09:01 Dose: 500 mg Documented By: SNEHA Aspirin (Aspirin 81 Mg Tab.Chew) 81 mg PO DAILY [facility] Last Admin: 05/26/22 09:01 Dose: 81 mg Documented By: SNEHA Atorvastatin Calcium (Atorvastatin Calcium 80 Mg Tablet) 80 mg PO DAILY [facility] Last Admin: 05/26/22 09:01 Dose: 80 mg Documented By: SNEHA Bupropion HCl (Bupropion Hcl 75 Mg Tablet) 75 mg PO DAILY [facility] Last Admin: 05/26/22 09:01 Dose: 75 mg Documented By: SNEHA Calcium Carbonate (Calcium Carbonate 500 Mg Tablet) 1,000 mg PO DAILY [facility] Last Admin: 05/26/22 09:01 Dose: 1,000 mg Documented By: SNEHA Docusate Sodium (Docusate Sodium 100 Mg Capsule) 100 mg PO BID PRN PRN Reason: soften stool Last Admin: 05/24/22 21:42 Dose: 100 mg Documented By: MAHENDRA Finasteride (Finasteride 5 Mg Tablet) 5 mg PO DAILY [facility] Last Admin: 05/26/22 09:01 Dose: 5 mg Documented By: SNEHA Furosemide (Furosemide 20 Mg Tablet) 20 mg PO SUTUTHSA [facility]; Protocol Last Admin: 05/25/22 09:42 Dose: 20 mg Documented By: HENRY Furosemide (Furosemide 40 Mg Tablet) 40 mg PO MOWEFR [facility]; Protocol Last Admin: 05/26/22 09:14 Dose: 40 mg Documented By: SNEHA Guaifenesin (Guaifenesin 200 Mg/10 Ml 10 Ml Liquid) 400 ml PO BID PRN PRN Reason: Cough Ceftriaxone Sodium 1 gm/ (Sodium Chloride) 50 mls @ 100 mls/hr IV Q24H [facility] Last Infusion: 05/25/22 19:50 Dose: 0 mls/hr Documented By: JULEE Lidocaine (Lidocaine 4 % Patch Adh..Patch) 1 patch TRANSDERMA DAILY [facility] Last Admin: 05/26/22 09:15 Dose: 1 patch Documented By: SNEHA Loratadine (Loratadine 10 Mg Tablet) 10 mg PO DAILY PRN PRN Reason: Allergy Symptoms Lorazepam (Lorazepam 0.5 Mg Tablet) 0.5 mg PO TID PRN PRN Reason: Anxiety Last Admin: 05/24/22 23:37 Dose: 0.5 mg Documented By: MAHENDRA Losartan Potassium (Losartan Potassium 25 Mg Tablet) 25 mg PO DAILY [facility]; Protocol Last Admin: 05/26/22 09:01 Dose: 25 mg Documented By: SNEHA Methimazole (Methimazole 5 Mg Tablet) 5 mg PO MOWEFR [facility] Last Admin: 05/26/22 09:14 Dose: 5 mg Documented By: SNEHA Methylprednisolone Sodium Succinate (Methylprednisolone Sod Succ 40 Mg/Ml Vial) 40 mg IVPUSH BID [facility] Last Admin: 05/26/22 09:14 Dose: 40 mg Documented By: SNEHA Metoprolol Succinate (Metoprolol Succinate Er 50 Mg Tab.Er.24h) 50 mg PO DAILY [facility]; Protocol Last Admin: 05/26/22 09:01 Dose: 50 mg Documented By: SNEHA Nitroglycerin (Nitroglycerin 0.4 Mg Tab.Subl) 0.4 mg SUBLINGUAL Q5M PRN PRN Reason: Chest Pain Omeprazole (Omeprazole 20 Mg Capsule.Dr) 20 mg PO DAILY [facility] Last Admin: 05/26/22 09:01 Dose: 20 mg Documented By: SNEHA Pharmacy Consult (Consult Rx Perform Med Rec) 1 each MISCELLANE ONCE PRN PRN Reason: Consult order Pharmacy Consult (Consult Rx Perform Med Rec) 1 each MISCELLANE ONCE PRN PRN Reason: Consult order Polyethylene Glycol (Polyethylene Glycol 3350 17 Gm Powd.Pack) 17 gm PO DAILY [facility] Last Admin: 05/26/22 09:02 Dose: 17 gm Documented By: SNEHA Quetiapine Fumarate (Quetiapine Fumarate 100 Mg Tablet) 100 mg PO BEDTIME PRN PRN Reason: Sleep Last Admin: 05/24/22 23:37 Dose: 100 mg Documented By: MAHENDRA Senna (Sennosides 8.6 Mg Tablet) 8.6 mg PO BID PRN PRN Reason: Constipation Last Admin: 05/24/22 21:42 Dose: 8.6 mg Documented By: MAHENDRA Sodium Chloride (0.9 % Sodium Chloride Flush 3 Ml Syringe) 3 ml IVFLUSH QSHIFT [facility] Last Admin: 05/26/22 09:12 Dose: 3 ml Documented By: SNEHA Tamsulosin HCl (Tamsulosin Hcl 0.4 Mg Capsule) 0.4 mg PO DAILY [facility] Last Admin: 05/26/22 09:01 Dose: 0.4 mg Documented By: SNEHA Temazepam (Temazepam 15 Mg Capsule) 15 mg PO BEDTIME PRN PRN Reason: Sleep Last Admin: 05/24/22 23:37 Dose: 15 mg Documented By: MAHENDRA Tramadol HCl (Tramadol Hcl 50 Mg Tablet) 50 mg PO DAILY PRN PRN Reason: Pain, Severe (Pain Scale 7-10) Vitamin D (Cholecalciferol (Vitamin D3) 25 Mcg Tablet) 25 mcg PO DAILY [facility] Last Admin: 05/26/22 09:01 Dose: 25 mcg Documented By: SNEHA Labs CBC & Chem 7: 05/24/22 07:52 05/22/22 08:01 Assessment and Plan (1) Hematuria: Status: Acute (2) Abnormal EKG: Status: Acute (3) Urinary tract infection: Status: Acute (4) Acute retention of urine: Status: Acute (5) Acute exacerbation of chronic obstructive pulmonary disease: Status: Acute Plan 76-year-old male with history of 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 Admitting for COPD exacerbation and UTI. 1. COPD exacerbation--improved, Prednisone, continue nebs 2. ?CAD had heart stents 6 years ago and also has history of [id number]: continue statin, ALLISON, BB, ASA Patient has mild elevated troponin, also has EKG changes as above--will get old ecg for comparaison, repeat ecg cardiology following, no further testing at this time 3. BPH: Was draining almost 1 L of urine. Status post Rodas Continue Flomax and finasteride Urology recommends outpatient follow up for voiding trial 4. Hypercholesteremia and hypothyroidism as well as hypertension: Home med reconciliation is still pending 5. UTI: Patient was given cefepime initially, started on ceftriaxone, urine culture ordered.? Blood culture also sent. 6.Hematuria:multifactorial:uti/urinary retention,? irritation due to rodas continue to moniter added urology eval DVT prophylaxis: hold subQ Lovenox due to hematuria,mech devices Patient has COPD exacerbation/UTI-started on nebs, steroids and antibiotics, hematuria monitering. Quality Stroke Does the patient have a stroke diagnosis?: No VTE Prior VTE?: No VTE Risk Level:: Medical - moderate - high VTE Device Contraindication: N/A - Device Ordered VTE Drug Contraindication: N/A - Med Ordered
[2022-05-26] MEDS: predniSONE 20 MG TABLET PO (11:35)
--- NOTE | 2022-05-26 11:47 | MHC.CM.PN ---
PLAN IS FOR PATIENT TO RETURN HOME TOMORROW (05/27/22) [facility] REFERRAL PLACED PATIENT AWARE OF PLAN.
[2022-05-26] MEDS: Milk of Magnesia 30 ML ORAL.SUSP PO (13:53)
[2022-05-26] MEDS: Docusate Sodium 100 MG CAPSULE PO (17:32)
[2022-05-26] MEDS: Sennosides 8.6 MG TABLET PO (17:32)
[2022-05-26] MEDS: cefTRIAXone sodium 1 GM in 0.9 % Sodium Chloride 50 ML IV (18:31)
[2022-05-26] MEDS: QUEtiapine Fumarate 100 MG TABLET PO (23:03)
[2022-05-27] VITALS (11 sets, daily range): BP systolic 125–148; BP diastolic 64–88; PULSE 70–107; RESP 15–20; TEMP 35.6–37.1; O2SAT 93–100
[2022-05-27] MEDS: Albuterol/Iprat 2.5/0.5MG 3 ML AMPUL.NEB INHALE ×5 (04:20→23:01)
[2022-05-27] MEDS: polyethylene glycoL 3350 17 GM POWD.PACK PO (09:32)
[2022-05-27] MEDS: 0.9 % Sodium Chloride Flush 3 ML SYRINGE IVFLUSH ×3 (09:33→20:24)
[2022-05-27] MEDS: Aspirin 81 MG TAB.CHEW PO (09:33)
[2022-05-27] MEDS: methylPREDNISolone Sod Succ 40 MG/ML VIAL IVPUSH ×2 (09:33→20:25)
[2022-05-27] MEDS: Losartan Potassium 25 MG TABLET PO (09:33)
[2022-05-27] MEDS: Cholecalciferol (Vitamin D3) 25 MCG TABLET PO (09:34)
[2022-05-27] MEDS: Finasteride 5 MG TABLET PO (09:34)
[2022-05-27] MEDS: Omeprazole 20 MG CAPSULE.DR PO (09:34)
[2022-05-27] MEDS: buPROPion HCL 75 MG TABLET PO (09:34)
[2022-05-27] MEDS: Acyclovir 200 MG CAPSULE 400 MG PO ×2 (09:34→20:24)
[2022-05-27] MEDS: Tamsulosin HCL 0.4 MG CAPSULE PO (09:34)
[2022-05-27] MEDS: Metoprolol Succinate ER 50 MG TAB.ER.24H PO (09:34)
[2022-05-27] MEDS: Ascorbic Acid 500 MG TABLET PO ×2 (09:34→20:24)
[2022-05-27] MEDS: predniSONE 20 MG TABLET PO (09:34)
[2022-05-27] MEDS: Atorvastatin Calcium 80 MG TABLET PO (09:34)
[2022-05-27] MEDS: Furosemide 20 MG TABLET PO (09:38)
[2022-05-27] MEDS: Docusate Sodium 100 MG CAPSULE PO ×2 (09:56→20:25)
[2022-05-27] MEDS: Sennosides 8.6 MG TABLET PO ×2 (09:57→20:25)
--- NOTE | 2022-05-27 11:48 | P.PNIM_ITS ---
Subjective Subjective Date of Service: 05/27/22 Interval History: Seen in f/u for copd interval history: breathing is good but feels constipated Review of Systems no sob feels constipated Physical Exam Vital Signs: Vital Signs: Last Vital Signs Temp 96.0 F L 05/27/22 11:28 Pulse 88 05/27/22 11:28 Resp 20 05/27/22 11:28 BP 132/80 05/27/22 11:28 Pulse Ox 100 05/27/22 11:28 O2 Del Method 05/27/22 11:28 O2 Flow Rate 5 05/27/22 11:28 Oxygen Flow Rate 3 05/21/22 13:44 BMI result Body Mass Index 23.4 Objective Data Active Medications Acyclovir (Acyclovir 200 Mg Capsule) 400 mg PO BID [facility] Last Admin: 05/27/22 09:34 Dose: 400 mg Documented By: HENRY Albuterol/Ipratropium (Albuterol/Iprat 2.5/0.5mg 3 Ml Ampul.Neb) 3 ml INHALE Q3H PRN PRN Reason: sob Albuterol/Ipratropium (Albuterol/Iprat 2.5/0.5mg 3 Ml Ampul.Neb) 3 ml INHALE RQ4H [facility] Last Admin: 05/27/22 11:24 Dose: 3 ml Documented By: NINO Ascorbic Acid (Ascorbic Acid 500 Mg Tablet) 500 mg PO BID [facility] Last Admin: 05/27/22 09:34 Dose: 500 mg Documented By: HENRY Aspirin (Aspirin 81 Mg Tab.Chew) 81 mg PO DAILY [facility] Last Admin: 05/27/22 09:33 Dose: 81 mg Documented By: HENRY Atorvastatin Calcium (Atorvastatin Calcium 80 Mg Tablet) 80 mg PO DAILY [facility] Last Admin: 05/27/22 09:34 Dose: 80 mg Documented By: HENRY Bupropion HCl (Bupropion Hcl 75 Mg Tablet) 75 mg PO DAILY [facility] Last Admin: 05/27/22 09:34 Dose: 75 mg Documented By: HENRY Calcium Carbonate (Calcium Carbonate 500 Mg Tablet) 1,000 mg PO DAILY [facility] Last Admin: 05/27/22 09:34 Dose: 1,000 mg Documented By: HENRY Cefuroxime Axetil (Cefuroxime Axetil 250 Mg Tablet) 250 mg PO BID [facility] Last Admin: 05/27/22 09:34 Dose: 250 mg Documented By: HENRY Docusate Sodium (Docusate Sodium 100 Mg Capsule) 100 mg PO BID PRN PRN Reason: soften stool Last Admin: 05/27/22 09:56 Dose: 100 mg Documented By: HENRY Finasteride (Finasteride 5 Mg Tablet) 5 mg PO DAILY [facility] Last Admin: 05/27/22 09:34 Dose: 5 mg Documented By: HENRY Furosemide (Furosemide 20 Mg Tablet) 20 mg PO SUTUTHSA [facility]; Protocol Last Admin: 05/27/22 09:38 Dose: 20 mg Documented By: HENRY Furosemide (Furosemide 40 Mg Tablet) 40 mg PO MOWEFR [facility]; Protocol Last Admin: 05/26/22 09:14 Dose: 40 mg Documented By: SNEHA Guaifenesin (Guaifenesin 200 Mg/10 Ml 10 Ml Liquid) 400 ml PO BID PRN PRN Reason: Cough Ceftriaxone Sodium 1 gm/ (Sodium Chloride) 50 mls @ 100 mls/hr IV Q24H [facility] Last Infusion: 05/26/22 22:00 Dose: 0 mls/hr Documented By: JULEE Lidocaine (Lidocaine 4 % Patch Adh..Patch) 1 patch TRANSDERMA DAILY [facility] Last Admin: 05/27/22 09:33 Dose: Not Given Documented By: HENRY Non-Admin Reason: Patient Refused Loratadine (Loratadine 10 Mg Tablet) 10 mg PO DAILY PRN PRN Reason: Allergy Symptoms Losartan Potassium (Losartan Potassium 25 Mg Tablet) 25 mg PO DAILY [facility]; Protocol Last Admin: 05/27/22 09:33 Dose: 25 mg Documented By: HENRY Magnesium Hydroxide (Milk Of Magnesia 30 Ml Oral.Susp) 30 ml PO DAILY PRN PRN Reason: Constipation Last Admin: 05/26/22 13:53 Dose: 30 ml Documented By: SNEHA Methimazole (Methimazole 5 Mg Tablet) 5 mg PO MOWEFR [facility] Last Admin: 05/26/22 09:14 Dose: 5 mg Documented By: SNEHA Methylprednisolone Sodium Succinate (Methylprednisolone Sod Succ 40 Mg/Ml Vial) 40 mg IVPUSH BID [facility] Last Admin: 05/27/22 09:33 Dose: 40 mg Documented By: HENRY Metoprolol Succinate (Metoprolol Succinate Er 50 Mg Tab.Er.24h) 50 mg PO DAILY [facility]; Protocol Last Admin: 05/27/22 09:34 Dose: 50 mg Documented By: HENRY Nitroglycerin (Nitroglycerin 0.4 Mg Tab.Subl) 0.4 mg SUBLINGUAL Q5M PRN PRN Reason: Chest Pain Omeprazole (Omeprazole 20 Mg Capsule.Dr) 20 mg PO DAILY [facility] Last Admin: 05/27/22 09:34 Dose: 20 mg Documented By: HENRY Pharmacy Consult (Consult Rx Perform Med Rec) 1 each MISCELLANE ONCE PRN PRN Reason: Consult order Pharmacy Consult (Consult Rx Perform Med Rec) 1 each MISCELLANE ONCE PRN PRN Reason: Consult order Polyethylene Glycol (Polyethylene Glycol 3350 17 Gm Powd.Pack) 17 gm PO DAILY [facility] Last Admin: 05/27/22 09:32 Dose: 17 gm Documented By: HENRY Polyethylene Glycol (Polyethylene Glycol 3350 17 Gm Powd.Pack) 17 gm PO DAILY PRN PRN Reason: Constipation Prednisone (Prednisone 20 Mg Tablet) 20 mg PO DAILY [facility] Last Admin: 05/27/22 09:34 Dose: 20 mg Documented By: HENRY Quetiapine Fumarate (Quetiapine Fumarate 100 Mg Tablet) 100 mg PO BEDTIME PRN PRN Reason: Sleep Last Admin: 05/26/22 23:03 Dose: 100 mg Documented By: JULEE Senna (Sennosides 8.6 Mg Tablet) 8.6 mg PO BID PRN PRN Reason: Constipation Last Admin: 05/27/22 09:57 Dose: 8.6 mg Documented By: HENRY Sodium Biphosphate/Sodium Phosphate (Sodium Phosphate,[place]-Dibasic 133 Ml Enema) 133 ml [place] ONCE PRN PRN Reason: Constipation Sodium Chloride (0.9 % Sodium Chloride Flush 3 Ml Syringe) 3 ml IVFLUSH QSHIFT [facility] Last Admin: 05/27/22 09:33 Dose: 3 ml Documented By: HENRY Tamsulosin HCl (Tamsulosin Hcl 0.4 Mg Capsule) 0.4 mg PO DAILY [facility] Last Admin: 05/27/22 09:34 Dose: 0.4 mg Documented By: HERNY Vitamin D (Cholecalciferol (Vitamin D3) 25 Mcg Tablet) 25 mcg PO DAILY [facility] Last Admin: 05/27/22 09:34 Dose: 25 mcg Documented By: HENRY Labs CBC & Chem 7: 05/24/22 07:52 05/22/22 08:01 Microbiology Microbiology Results: Microbiology 05/21/22 14:44 Blood Culture - Final Blood - Venous No growth after 5 days. 05/21/22 14:34 Blood Culture - Final Blood - Venous No growth after 5 days. Assessment and Plan (1) Hematuria: Status: Acute (2) Abnormal EKG: Status: Acute (3) Urinary tract infection: Status: Acute (4) Acute retention of urine: Status: Acute (5) Acute exacerbation of chronic obstructive pulmonary disease: Status: Acute Plan 76-year-old male with history of 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 Admitting for COPD exacerbation and UTI. 1. COPD exacerbation--improved, Prednisone 20 daily continue nebs 2. ?CAD had heart stents 6 years ago and also has history of Wol [id number]: continue statin, ALLISON, BB, ASA Patient has mild elevated troponin, also has EKG changes as above--will get old ecg for comparaison, repeat ecg cardiology following, no further testing at this time 3. BPH: Was draining almost 1 L of urine. Status post Rodas Continue Flomax and finasteride Urology recommends outpatient follow up for voiding trial 4. Hypercholesteremia and hypothyroidism as well as hypertension: Home med reconciliation is still pending 5. UTI: Patient was given cefepime initially, started on ceftriaxone, urine culture ordered.? negative culture, ceftin po 6.Hematuria:multifactorial:uti/urinary retention,? irritation due to rodas continue to moniter added urology eval constiaption mom, miralax but effect, add enema DVT prophylaxis: hold subQ Lovenox due to hematuria,mech devices Patient has COPD exacerbation/UTI-started on nebs, steroids and antibiotics, hematuria monitering. anticipate going home later today Quality Stroke Does the patient have a stroke diagnosis?: No VTE Prior VTE?: No VTE Risk Level:: Medical - moderate - high VTE Device Contraindication: N/A - Device Ordered VTE Drug Contraindication: N/A - Med Ordered
[2022-05-27] MEDS: Sodium Phosphate,Mono-Dibasic 133 ML ENEMA PR (15:14)
[2022-05-27] MEDS: Milk of Magnesia 30 ML ORAL.SUSP PO (20:24)
[2022-05-27] MEDS: QUEtiapine Fumarate 100 MG TABLET PO (22:42)
[2022-05-28] VITALS (11 sets, daily range): BP systolic 110–148; BP diastolic 62–85; PULSE 71–112; RESP 15–20; TEMP 36.5–37.9; O2SAT 90–98
[2022-05-28] MEDS: Zolpidem Tartrate 5 MG TABLET PO ×2 (00:48→22:52)
--- NOTE | 2022-05-28 03:06 | PC.NURSE ---
Pt c/o unable to fall asleep despite of his seroquel, pt showed his empty prescription bottle for Zaleplon 10 mg tab for sleep, pt is asking for med to help him sleep, pt is somewhat irritated about not having sleep med and aggravated by his present medical conditions, pt was reassured,Dr. Kumar was made aware, Ambien 5 mg po given, advised pt to call for any need, comfortable and quiet room maintianed.
[2022-05-28] MEDS: Albuterol/Iprat 2.5/0.5MG 3 ML AMPUL.NEB INHALE ×4 (08:37→19:52)
--- NOTE | 2022-05-28 08:48 | PM.CNGS ---
History of Present Illness Consult details Consult date: 05/28/22 Narrative: 76M, initially admitted for COPD exacerbation, referred for constipation and possible fecal impaction. He says he has not had a good bowel movement in over a week. He describes some lower abdominal discomfort. He admits to being chronically constipated for years now. He denies seeing blood per rectum. He states he has had colonoscopies in the past and states he recalls these to be ok . He denies any nausea or vomitting. He has multiple medical problems including advanced COPD, coronary artery disease, with previous cardiac stents. Review of Systems Constitutional: Constitutional: Denies chills and Denies fever(s) Cardiovascular: Cardiovascular: Denies chest pain, Reports dyspnea and Reports dyspnea on exertion Respiratory: Respiratory: Denies cough, Reports dyspnea and Reports dyspnea on exertion Gastrointestinal: Gastrointestinal: Denies hematochezia, Denies change in bowel habits, Reports constipation and Denies vomiting Genitourinary: Genitourinary: Denies hematuria and Reports difficulty urinating Musculoskeletal: Musculoskeletal: Denies back pain and Denies limited range of motion Neurologic: Denies focal weakness and Denies convulsions Psychiatric: Psychiatric: Denies depression and Denies mood swings PMFSH Past Medical History Medical History (Updated 05/28/22 @ 08:56 by Austin Madrigal MD) Constipation Social History Social History Household Members: Children and Other Household Members Other:: Caregiver, son and daughter Housing: House Alcohol intake: never Patient Tobacco Use Status: Former Tobacco user service: Yes Current occupational status: disabled Meds Allergies Allergy/AdvReac Type Severity Reaction Status Date / Time No Known Allergies Allergy Unverified 05/29/20 16:52 [No Known Allergies*] Active Medications: Current Medications Acyclovir (Acyclovir 200 Mg Capsule) 400 mg PO BID [facility] Last Admin: 05/27/22 20:24 Dose: 400 mg Albuterol/Ipratropium (Albuterol/Iprat 2.5/0.5mg 3 Ml Ampul.Neb) 3 ml INHALE Q3H PRN PRN Reason: sob Albuterol/Ipratropium (Albuterol/Iprat 2.5/0.5mg 3 Ml Ampul.Neb) 3 ml INHALE RQ4H [facility] Last Admin: 05/28/22 08:37 Dose: 3 ml Ascorbic Acid (Ascorbic Acid 500 Mg Tablet) 500 mg PO BID [facility] Last Admin: 05/27/22 20:24 Dose: 500 mg Aspirin (Aspirin 81 Mg Tab.Chew) 81 mg PO DAILY [facility] Last Admin: 05/27/22 09:33 Dose: 81 mg Atorvastatin Calcium (Atorvastatin Calcium 80 Mg Tablet) 80 mg PO DAILY [facility] [place] Last Admin: 05/27/22 09:34 Dose: 80 mg Bupropion HCl (Bupropion Hcl 75 Mg Tablet) 75 mg PO DAILY [facility] [place] Last Admin: 05/27/22 09:34 Dose: 75 mg Calcium Carbonate (Calcium Carbonate 500 Mg Tablet) 1,000 mg PO DAILY [facility] Last Admin: 05/27/22 09:34 Dose: 1,000 mg Cefuroxime Axetil (Cefuroxime Axetil 250 Mg Tablet) 250 mg PO BID [facility] [place] Last Admin: 05/27/22 20:24 Dose: 250 mg Docusate Sodium (Docusate Sodium 100 Mg Capsule) 100 mg PO BID PRN PRN Reason: soften stool Last Admin: 05/27/22 20:25 Dose: 100 mg Finasteride (Finasteride 5 Mg Tablet) 5 mg PO DAILY [facility] [place] Last Admin: 05/27/22 09:34 Dose: 5 mg Furosemide (Furosemide 20 Mg Tablet) 20 mg PO SUTUTHSA [facility]; Protocol Last Admin: 05/27/22 09:38 Dose: 20 mg [facility]urosemide ([facility] 40 Mg Tablet) [facility] Last Admin: 05/26/22 09:14 Dose: 40 mg Guaifenesin (Guaifenesin 200 Mg/10 Ml 10 Ml Liquid) 400 ml PO BID PRN PRN Reason: Cough Lidocaine (Lidocaine 4 % Patch Adh..Patch) 1 patch TRANSDERMA DAILY [facility] [place] Last Admin: 05/27/22 09:33 Dose: Not Given Loratadine (Loratadine 10 Mg Tablet) 10 mg PO DAILY PRN PRN Reason: Allergy Symptoms Losartan Potassium (Losartan Potassium 25 Mg Tablet) 25 mg PO DAILY [facility]; Protocol Last Admin: 05/27/22 09:33 Dose: 25 mg Magnesium Hydroxide (Milk Of Magnesia 30 Ml Oral.Susp) 30 ml PO DAILY PRN PRN Reason: Constipation Last Admin: 05/27/22 20:24 Dose: 30 ml Methimazole (Methimazole 5 Mg Tablet) 5 mg PO MOWEFR [facility] [place] Last Admin: 05/26/22 09:14 Dose: 5 mg Methylprednisolone Sodium Succinate (Methylprednisolone Sod Succ 40 Mg/Ml Vial) 40 mg IVPUSH BID [facility] [place] Last Admin: 05/27/22 20:25 Dose: 40 mg Metoprolol Succinate (Metoprolol Succinate Er 50 Mg Tab.Er.24h) 50 mg PO DAILY [facility] [place]; Protocol Last Admin: 05/27/22 09:34 Dose: 50 mg Nitroglycerin (Nitroglycerin 0.4 Mg Tab.Subl) 0.4 mg SUBLINGUAL Q5M PRN PRN Reason: Chest Pain Omeprazole (Omeprazole 20 Mg Capsule.Dr) 20 mg PO DAILY [facility] [place] Last Admin: 05/27/22 09:34 Dose: 20 mg Pharmacy Consult (Consult Rx Perform Med Rec) 1 each MISCELLANE ONCE PRN PRN Reason: Consult order Pharmacy Consult (Consult Rx Perform Med Rec) 1 each MISCELLANE ONCE PRN PRN Reason: Consult order Polyethylene Glycol (Polyethylene Glycol 3350 17 Gm Powd.Pack) 17 gm PO DAILY [facility] Last Admin: 05/27/22 09:32 Dose: 17 gm Polyethylene Glycol (Polyethylene Glycol 3350 17 Gm Powd.Pack) 17 gm PO DAILY PRN PRN Reason: Constipation Prednisone (Prednisone 20 Mg Tablet) 20 mg PO DAILY [facility] [place] Last Admin: 05/27/22 09:34 Dose: 20 mg Quetiapine Fumarate (Quetiapine Fumarate 100 Mg Tablet) 100 mg PO BEDTIME PRN PRN Reason: Sleep Last Admin: 05/27/22 22:42 Dose: 100 mg Senna (Sennosides 8.6 Mg Tablet) 8.6 mg PO BID PRN PRN Reason: Constipation Last Admin: 05/27/22 20:25 Dose: 8.6 mg Sodium Biphosphate/Sodium Phosphate (Sodium Phosphate,[place]-Dibasic 133 Ml Enema) 133 ml [place] ONCE PRN PRN Reason: Constipation Last Admin: 05/27/22 15:14 Dose: 133 ml Sodium Chloride (0.9 % Sodium Chloride Flush 3 Ml Syringe) [facility] Admin: 05/27/22 20:24 Dose: 3 ml Tamsulosin HCl (Tamsulosin Hcl 0.4 Mg Capsule) 0.4 mg PO DAILY [facility] Last Admin: 05/27/22 09:34 Dose: 0.4 mg Vitamin D (Cholecalciferol (Vitamin D3) 25 Mcg Tablet) 25 mcg PO DAILY [facility] Last Admin: 05/27/22 09:34 Dose: 25 mcg Home Medications Medication Instructions Recorded Confirmed Last Taken Type Lactobacillus acidophilus 1 tab PO DAILY 05/21/22 05/21/22 05/21/22 History acyclovir 200 mg capsule 400 mg PO BID 05/21/22 05/21/22 05/21/22 History albuterol sulfate 90 mcg/actuation 2 puff inhalation QID PRN 05/21/22 05/21/22 Unknown History aerosol inhaler (ProAir HFA) Shortness Of Breath alendronate 70 mg tablet (Fosamax) 70 mg PO PEREYRA 05/21/22 05/21/22 05/16/22 History ascorbic acid (vitamin C) 500 mg 500 mg PO BID 05/21/22 05/21/22 05/21/22 History tablet (Vitamin C) aspirin 81 mg chewable tablet 81 mg PO DAILY 05/21/22 05/21/22 05/21/22 History budesonide 0.25 mg/2 mL suspension 0.25 mg inhalation BID 05/21/22 05/21/22 05/21/22 History for nebulization bupropion HCl 75 mg tablet 75 mg PO DAILY 05/21/22 05/21/22 05/21/22 History calcium carbonate 500 mg calcium 1,000 mg PO DAILY 05/21/22 05/21/22 05/21/22 History (1,250 mg) tablet cholecalciferol (vitamin D3) 25 25 mcg PO DAILY 05/21/22 05/21/22 05/21/22 History mcg (1,000 unit) tablet (Vitamin D3) docusate sodium 100 mg capsule 100 mg PO BID PRN soften stool 05/21/22 05/21/22 Unknown History (Colace) finasteride 5 mg tablet (Proscar) 5 mg PO DAILY 05/21/22 05/21/22 05/21/22 History furosemide 20 mg tablet (Lasix) 20 mg PO SUTUTHSA 05/21/22 05/21/22 05/20/22 History furosemide 20 mg tablet (Lasix) 40 mg PO MOWEFR 05/21/22 05/21/22 05/21/22 History guaifenesin 200 mg tablet 400 mg PO BID PRN Cough 05/21/22 05/21/22 Unknown History ibuprofen 400 mg tablet 400 mg PO Q8H PRN Pain 05/21/22 05/21/22 Unknown History lidocaine 5 % topical patch 1 patch topical DAILY 05/21/22 05/21/22 05/21/22 History (Lidoderm) loratadine 10 mg tablet (Claritin) 10 mg PO DAILY PRN Allergy Symptoms 05/21/22 05/21/22 Unknown History lorazepam 0.5 mg tablet 0.5 mg PO TID PRN Anxiety 05/21/22 05/21/22 Unknown History losartan 25 mg tablet 25 mg PO DAILY 05/21/22 05/21/22 05/21/22 History methimazole 5 mg tablet 5 mg PO MOWEFR 05/21/22 05/21/22 05/21/22 History metoprolol succinate 50 mg 50 mg PO DAILY 05/21/22 05/21/22 05/21/22 History tablet,extended release 24 hr nitroglycerin 0.4 mg sublingual 0.4 mg sublingual Q5M PRN Chest 05/21/22 05/21/22 Unknown History tablet Pain omeprazole 20 mg capsule,delayed 20 mg PO DAILY 05/21/22 05/21/22 05/21/22 History release polyethylene glycol 3350 17 gram 17 g PO DAILY 05/21/22 05/21/22 05/21/22 History oral powder packet (Miralax) quetiapine 100 mg tablet 100 mg PO BEDTIME PRN Sleep 05/21/22 05/21/22 Unknown History rosuvastatin 40 mg tablet (Crestor) 20 mg PO DAILY 05/21/22 05/21/22 05/21/22 History sennosides 8.6 mg tablet (senna) 8.6 mg PO BID PRN Constipation 05/21/22 05/21/22 Unknown History tamsulosin 0.4 mg capsule (Flomax) 0.4 mg PO DAILY 05/21/22 05/21/22 05/21/22 History tiotropium 2.5 mcg-olodaterol 2.5 2 puff inhalation DAILY 05/21/22 05/21/22 05/21/22 History mcg/actuation mist for inhalation tramadol 50 mg tablet 50 mg PO DAILY PRN Pain 05/21/22 05/21/22 Unknown History zaleplon 10 mg capsule 10 mg PO BEDTIME PRN Sleep 05/21/22 05/21/22 Unknown History Physical Exam Vital Signs: Vital Signs: Last Vital Signs Temp 99.9 F 05/28/22 08:00 Pulse 93 05/28/22 08:39 Resp 20 05/28/22 08:39 BP 110/66 05/28/22 08:00 Pulse Ox 90 L 05/28/22 08:00 O2 Del Method 05/28/22 08:00 O2 Flow Rate 3.0 05/28/22 08:00 Oxygen Flow Rate 3 05/21/22 13:44 BMI result Body Mass Index 23.4 Const: General: no acute distress Orientation/consciousness: patient oriented x3 Neck: Neck: Yes no lymphadenopathy Resp: Other: a little short of breath Auscultation: clear to auscultation bilaterally Cardio: Rhythm: regular rhythm GI: Other: rectal exam - rectal vault full of gas but no impacted stools, no palpable mass, no induration, no blood on exam finger, no tenderness Palpation (GI): Soft to palpation, nontender and no guarding Neuro: General: patient oriented x3 Results Labs Result diagrams: 05/24/22 07:52 05/22/22 08:01 Labs: Urine 05/21/22 Range/Units 14:35 Urine Color [place] A Urine Appearance Clear Urine pH 5.5 (5.0-9.0) Ur Specific [place] 1.010 (1.005-1.025) Urine Protein Negative (Neg-Trace) mg/dL Urine Glucose (UA) Negative (Negative) mg/dL All other labs normal. Assessment and Plan (1) Constipation: Status: Acute Rectal exam does not reveal any mass in the rectum. There are no impacted stools in the vault, although this is full of gas. His abdominal exam is otherwise benign. I would recommend laxatives and stool softeners. Enemas may not be beneficial at this time. If he develops distension and significant pain, would do CT scan of the abdomen/pelvis, but clinically he does not appear to be obstructed at this time.l Procedures Date of Service Date of Service: 05/28/22
[2022-05-28] MEDS: Cholecalciferol (Vitamin D3) 25 MCG TABLET PO (08:50)
[2022-05-28] MEDS: Metoprolol Succinate ER 50 MG TAB.ER.24H PO (08:50)
[2022-05-28] MEDS: Tamsulosin HCL 0.4 MG CAPSULE PO (08:50)
[2022-05-28] MEDS: Losartan Potassium 25 MG TABLET PO (08:50)
[2022-05-28] MEDS: methIMAzole 5 MG TABLET PO (08:50)
[2022-05-28] MEDS: Acyclovir 200 MG CAPSULE 400 MG PO ×2 (08:50→20:47)
[2022-05-28] MEDS: Furosemide 40 MG TABLET PO (08:50)
[2022-05-28] MEDS: Lidocaine 4 % Patch ADH..PATCH 1 PATCH TRANSDERMA (08:51)
[2022-05-28] MEDS: Aspirin 81 MG TAB.CHEW PO (08:51)
[2022-05-28] MEDS: predniSONE 20 MG TABLET PO (08:51)
[2022-05-28] MEDS: buPROPion HCL 75 MG TABLET PO (08:51)
[2022-05-28] MEDS: polyethylene glycoL 3350 17 GM POWD.PACK PO (08:51)
[2022-05-28] MEDS: Omeprazole 20 MG CAPSULE.DR PO (08:51)
[2022-05-28] MEDS: Ascorbic Acid 500 MG TABLET PO ×2 (08:51→20:46)
[2022-05-28] MEDS: Atorvastatin Calcium 80 MG TABLET PO (08:51)
[2022-05-28] MEDS: 0.9 % Sodium Chloride Flush 3 ML SYRINGE IVFLUSH ×3 (08:52→20:49)
[2022-05-28] MEDS: Finasteride 5 MG TABLET PO (08:52)
[2022-05-28] MEDS: methylPREDNISolone Sod Succ 40 MG/ML VIAL IVPUSH ×2 (08:52→20:46)
--- NOTE | 2022-05-28 15:12 | P.PNIM_ITS ---
Subjective Subjective Date of Service: 05/28/22 Interval History: Seen in f/u for copd interval history: breathing ok, still c/o constipation despite agresive bowel regimen, enema, digital rectal exam no stool in vault Review of Systems no sob feels constipated Physical Exam Vital Signs: Vital Signs: Last Vital Signs Temp 100.2 F 05/28/22 11:08 Pulse 105 H 05/28/22 11:48 Resp 20 05/28/22 11:48 BP 148/76 H 05/28/22 11:08 Pulse Ox 93 05/28/22 11:08 O2 Del Method 05/28/22 11:08 O2 Flow Rate 3.0 05/28/22 11:08 Oxygen Flow Rate 3 05/21/22 13:44 BMI result Body Mass Index 23.4 Objective Data Active Medications Acyclovir (Acyclovir 200 Mg Capsule) 400 mg PO BID [facility] Last Admin: 05/28/22 08:50 Dose: 400 mg Documented By: SNEHA Albuterol/Ipratropium (Albuterol/Iprat 2.5/0.5mg 3 Ml Ampul.Neb) 3 ml INHALE Q3H PRN PRN Reason: sob Albuterol/Ipratropium (Albuterol/Iprat 2.5/0.5mg 3 Ml Ampul.Neb) 3 ml INHALE RQ4H [facility] Last Admin: 05/28/22 11:44 Dose: 3 ml Documented By: LORA Ascorbic Acid (Ascorbic Acid 500 Mg Tablet) 500 mg PO BID [facility] Last Admin: 05/28/22 08:51 Dose: 500 mg Documented By: SNEHA Aspirin (Aspirin 81 Mg Tab.Chew) 81 mg PO DAILY [facility] Last Admin: 05/28/22 08:51 Dose: 81 mg Documented By: SNEHA Atorvastatin Calcium (Atorvastatin Calcium 80 Mg Tablet) 80 mg PO DAILY [facility] Last Admin: 05/28/22 08:51 Dose: 80 mg Documented By: SNEHA Bupropion HCl (Bupropion Hcl 75 Mg Tablet) 75 mg PO DAILY [facility] Last Admin: 05/28/22 08:51 Dose: 75 mg Documented By: SNEHA Calcium Carbonate (Calcium Carbonate 500 Mg Tablet) 1,000 mg PO DAILY [facility] Last Admin: 05/28/22 08:51 Dose: 1,000 mg Documented By: SNEHA Cefuroxime Axetil (Cefuroxime Axetil 250 Mg Tablet) 250 mg PO BID [facility] Last Admin: 05/28/22 08:51 Dose: 250 mg Documented By: SNEHA Docusate Sodium (Docusate Sodium 100 Mg Capsule) 100 mg PO BID PRN PRN Reason: soften stool Last Admin: 05/27/22 20:25 Dose: 100 mg Documented By: MARIANNE Finasteride (Finasteride 5 Mg Tablet) 5 mg PO DAILY [facility] Last Admin: 05/28/22 08:52 Dose: 5 mg Documented By: SNEHA Furosemide (Furosemide 20 Mg Tablet) 20 mg PO SUTUTHSA [facility]; Protocol Last Admin: 05/27/22 09:38 Dose: 20 mg Documented By: HENRY Furosemide (Furosemide 40 Mg Tablet) 40 mg PO MOWEFR [facility]; Protocol Last Admin: 05/28/22 08:50 Dose: 40 mg Documented By: SNEHA Guaifenesin (Guaifenesin 200 Mg/10 Ml 10 Ml Liquid) 400 ml PO BID PRN PRN Reason: Cough Lidocaine (Lidocaine 4 % Patch Adh..Patch) 1 patch TRANSDERMA DAILY [facility] Last Admin: 05/28/22 08:51 Dose: 1 patch Documented By: SNEHA Loratadine (Loratadine 10 Mg Tablet) 10 mg PO DAILY PRN PRN Reason: Allergy Symptoms Losartan Potassium (Losartan Potassium 25 Mg Tablet) 25 mg PO DAILY [facility]; Protocol Last Admin: 05/28/22 08:50 Dose: 25 mg Documented By: SNEHA Magnesium Hydroxide (Milk Of Magnesia 30 Ml Oral.Susp) 30 ml PO DAILY PRN PRN Reason: Constipation Last Admin: 05/27/22 20:24 Dose: 30 ml Documented By: MARIANNE Methimazole (Methimazole 5 Mg Tablet) 5 mg PO MOWEFR [facility] Last Admin: 05/28/22 08:50 Dose: 5 mg Documented By: SNEHA Methylprednisolone Sodium Succinate (Methylprednisolone Sod Succ 40 Mg/Ml Vial) 40 mg IVPUSH BID [facility] Last Admin: 05/28/22 08:52 Dose: 40 mg Documented By: SNEHA Metoprolol Succinate (Metoprolol Succinate Er 50 Mg Tab.Er.24h) 50 mg PO DAILY [facility]; Protocol Last Admin: 05/28/22 08:50 Dose: 50 mg Documented By: SNEHA Nitroglycerin (Nitroglycerin 0.4 Mg Tab.Subl) 0.4 mg SUBLINGUAL Q5M PRN PRN Reason: Chest Pain Omeprazole (Omeprazole 20 Mg Capsule.Dr) 20 mg PO DAILY [facility] Last Admin: 05/28/22 08:51 Dose: 20 mg Documented By: SNEHA Pharmacy Consult (Consult Rx Perform Med Rec) 1 each MISCELLANE ONCE PRN PRN Reason: Consult order Pharmacy Consult (Consult Rx Perform Med Rec) 1 each MISCELLANE ONCE PRN PRN Reason: Consult order Polyethylene Glycol (Polyethylene Glycol 3350 17 Gm Powd.Pack) 17 gm PO DAILY [facility] Last Admin: 05/28/22 08:51 Dose: 17 gm Documented By: SNEHA Polyethylene Glycol (Polyethylene Glycol 3350 17 Gm Powd.Pack) 17 gm PO DAILY PRN PRN Reason: Constipation Prednisone (Prednisone 20 Mg Tablet) 20 mg PO DAILY [facility] Last Admin: 05/28/22 08:51 Dose: 20 mg Documented By: SNEHA Quetiapine Fumarate (Quetiapine Fumarate 100 Mg Tablet) 100 mg PO BEDTIME PRN PRN Reason: Sleep Last Admin: 05/27/22 22:42 Dose: 100 mg Documented By: MARIANNE Senna (Sennosides 8.6 Mg Tablet) 8.6 mg PO BID PRN PRN Reason: Constipation Last Admin: 05/27/22 20:25 Dose: 8.6 mg Documented By: MARIANNE Sodium Biphosphate/Sodium Phosphate (Sodium Phosphate,[place]-Dibasic 133 Ml Enema) 133 ml [place] ONCE PRN PRN Reason: Constipation Last Admin: 05/27/22 15:14 Dose: 133 ml Documented By: HENRY Sodium Biphosphate/Sodium Phosphate (Sodium Phosphate,[place]-Dibasic 133 Ml Enema) 133 ml [place] ONCE PRN PRN Reason: Constipation Sodium Chloride (0.9 % Sodium Chloride Flush 3 Ml Syringe) 3 ml IVFLUSH QSHIFT [facility] Last Admin: 05/28/22 08:52 Dose: 3 ml Documented By: SNEHA Tamsulosin HCl (Tamsulosin Hcl 0.4 Mg Capsule) 0.4 mg PO DAILY [facility] Last Admin: 05/28/22 08:50 Dose: 0.4 mg Documented By: SNEHA Vitamin D (Cholecalciferol (Vitamin D3) 25 Mcg Tablet) 25 mcg PO DAILY [facility] Last Admin: 05/28/22 08:50 Dose: 25 mcg Documented By: SNEHA Labs CBC & Chem 7: 05/24/22 07:52 05/22/22 08:01 Assessment and Plan (1) Hematuria: Status: Acute (2) Abnormal EKG: Status: Acute (3) Urinary tract infection: Status: Acute (4) Acute retention of urine: Status: Acute (5) Acute exacerbation of chronic obstructive pulmonary disease: Status: Acute Plan 76-year-old male with history of 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 Admitting for COPD exacerbation and UTI. 1. COPD exacerbation--improved, Prednisone 20 daily continue nebs 2. ?CAD had heart stents 6 years ago and also has history of [id number]-[id number]: continue statin, ALLISON, BB, ASA Patient has mild elevated troponin, also has EKG changes as above--will get old ecg for comparaison, repeat ecg cardiology following, no further testing at this time 3. BPH: Was draining almost 1 L of urine. Status post Rodas Continue Flomax and finasteride Urology recommends outpatient follow up for voiding trial 4. Hypercholesteremia and hypothyroidism as well as hypertension: Home med reconciliation is still pending 5. UTI: Patient was given cefepime initially, started on ceftriaxone, urine culture ordered.? negative culture, ceftin po 6.Hematuria:multifactorial:uti/urinary retention,? irritation due to rodas continue to moniter added urology eval constiaption mom, miralax but effect, add enema..Seen by surgery no indication for desimpaction.. DVT prophylaxis: hold subQ Lovenox due to hematuria,mech devices Patient has COPD exacerbation/UTI-started on nebs, steroids and antibiotics, hematuria monitering. anticipate going home later today if has bowel movment Quality Stroke Does the patient have a stroke diagnosis?: No VTE Prior VTE?: No VTE Risk Level:: Medical - moderate - high VTE Device Contraindication: N/A - Device Ordered VTE Drug Contraindication: N/A - Med Ordered
[2022-05-28] MEDS: Sennosides 8.6 MG TABLET PO (15:17)
[2022-05-28] MEDS: Docusate Sodium 100 MG CAPSULE PO (15:17)
--- NOTE | 2022-05-28 16:21 | MHC.CM.PN ---
PT MAY DC HOME TODAY WITH NEW [facility] AND [facility]UMPTION OF [facility] PT CLEARED TO LEAVE PENDING BM [facility] WILL TRANSPORT
[2022-05-28] MEDS: Milk of Magnesia 30 ML ORAL.SUSP PO (20:46)
[2022-05-28] MEDS: QUEtiapine Fumarate 100 MG TABLET PO (20:56)
[2022-05-29] VITALS (10 sets, daily range): BP systolic 118–139; BP diastolic 62–82; PULSE 76–95; RESP 15–20; TEMP 36.3–37.1; O2SAT 92–98
[2022-05-29] MEDS: Albuterol/Iprat 2.5/0.5MG 3 ML AMPUL.NEB INHALE ×5 (04:36→20:39)
--- NOTE | 2022-05-29 08:52 | HO.PM.IMPN ---
Subjective Subjective Date of Service: 05/29/22 Interval History: Seen in f/u for copd interval history: no difficulty breathing, his issue is constipation Review of Systems no sob feels constipated Physical Exam Vital Signs: Vital Signs: Last Vital Signs Temp 97.7 F 05/29/22 07:56 Pulse 95 05/29/22 08:05 Resp 18 05/29/22 08:05 BP 125/67 05/29/22 07:56 Pulse Ox 97 05/29/22 07:56 O2 Del Method 05/29/22 07:56 O2 Flow Rate 3 05/29/22 07:56 Oxygen Flow Rate 3 05/21/22 13:44 BMI result Body Mass Index 23.4 Const: Other: General: AO X 3, no acute distress Resp: CTA bilateral--no wheeze, no accessory muscle use CVS: S1,S2,RRR GI: +BS, NT, no distention Skin: No rash Neuro: motor grossly intact Psych: appropriate affect Objective Data Active Medications Acyclovir (Acyclovir 200 Mg Capsule) 400 mg PO BID [facility] Last Admin: 05/28/22 20:47 Dose: 400 mg Documented By: VICK Albuterol/Ipratropium (Albuterol/Iprat 2.5/0.5mg 3 Ml Ampul.Neb) 3 ml INHALE RQ4H [facility] Last Admin: 05/29/22 08:02 Dose: 3 ml Documented By: LORA Ascorbic Acid (Ascorbic Acid 500 Mg Tablet) 500 mg PO BID [facility] Last Admin: 05/28/22 20:46 Dose: 500 mg Documented By: VICK Aspirin (Aspirin 81 Mg Tab.Chew) 81 mg PO DAILY [facility] Last Admin: 05/28/22 08:51 Dose: 81 mg Documented By: SNEHA Atorvastatin Calcium (Atorvastatin Calcium 80 Mg Tablet) 80 mg PO DAILY [facility] Last Admin: 05/28/22 08:51 Dose: 80 mg Documented By: SNEHA Bupropion HCl (Bupropion Hcl 75 Mg Tablet) 75 mg PO DAILY [facility] Last Admin: 05/28/22 08:51 Dose: 75 mg Documented By: SNEHA Calcium Carbonate (Calcium Carbonate 500 Mg Tablet) 1,000 mg PO DAILY [facility] Last Admin: 05/28/22 08:51 Dose: 1,000 mg Documented By: SNEHA Cefuroxime Axetil (Cefuroxime Axetil 250 Mg Tablet) 250 mg PO BID [facility] Last Admin: 05/28/22 20:47 Dose: 250 mg Documented By: VICK Docusate Sodium (Docusate Sodium 100 Mg Capsule) 100 mg PO BID PRN PRN Reason: soften stool Last Admin: 05/28/22 15:17 Dose: 100 mg Documented By: SNEHA Finasteride (Finasteride 5 Mg Tablet) 5 mg PO DAILY [facility] Last Admin: 05/28/22 08:52 Dose: 5 mg Documented By: SNEHA [facility]semide ([facility] 20 Mg Tablet) [facility] Last Admin: 05/27/22 09:38 Dose: 20 mg Documented By: HENRY Furosemide (Furosemide 40 Mg Tablet) 40 mg PO MOWEFR [facility]; Protocol Last Admin: 05/28/22 08:50 Dose: 40 mg Documented By: SNEHA Guaifenesin (Guaifenesin 200 Mg/10 Ml 10 Ml Liquid) 400 ml PO BID PRN PRN Reason: Cough Lidocaine (Lidocaine 4 % Patch Adh..Patch) 1 patch TRANSDERMA DAILY [facility] Last Admin: 05/28/22 08:51 Dose: 1 patch Documented By: SNEHA Loratadine (Loratadine 10 Mg Tablet) 10 mg PO DAILY PRN PRN Reason: Allergy Symptoms Losartan Potassium (Losartan Potassium 25 Mg Tablet) 25 mg PO DAILY [facility]; Protocol Last Admin: 05/28/22 08:50 Dose: 25 mg Documented By: SNEHA Magnesium Hydroxide (Milk Of Magnesia 30 Ml Oral.Susp) 30 ml PO DAILY PRN PRN Reason: Constipation Last Admin: 05/28/22 20:46 Dose: 30 ml Documented By: VICK Methimazole (Methimazole 5 Mg Tablet) 5 mg PO MOWEFR [facility] Last Admin: 05/28/22 08:50 Dose: 5 mg Documented By: SNEHA Methylprednisolone Sodium Succinate (Methylprednisolone Sod Succ 40 Mg/Ml Vial) 40 mg IVPUSH BID [facility] Last Admin: 05/28/22 20:46 Dose: 40 mg Documented By: VICK Metoprolol Succinate (Metoprolol Succinate Er 50 Mg Tab.Er.24h) 50 mg PO DAILY [facility]; Protocol Last Admin: 05/28/22 08:50 Dose: 50 mg Documented By: SNEHA Nitroglycerin (Nitroglycerin 0.4 Mg Tab.Subl) 0.4 mg SUBLINGUAL Q5M PRN PRN Reason: Chest Pain Omeprazole (Omeprazole 20 Mg Capsule.Dr) 20 mg PO DAILY [facility] Last Admin: 05/28/22 08:51 Dose: 20 mg Documented By: SNEHA Pharmacy Consult (Consult Rx Perform Med Rec) 1 each MISCELLANE ONCE PRN PRN Reason: Consult order Pharmacy Consult (Consult Rx Perform Med Rec) 1 each MISCELLANE ONCE PRN PRN Reason: Consult order Polyethylene Glycol (Polyethylene Glycol 3350 17 Gm Powd.Pack) 17 gm PO DAILY [facility] Last Admin: 05/28/22 08:51 Dose: 17 gm Documented By: SNEHA Polyethylene Glycol (Polyethylene Glycol 3350 17 Gm Powd.Pack) 17 gm PO DAILY PRN PRN Reason: Constipation Prednisone (Prednisone 20 Mg Tablet) 20 mg PO DAILY [facility] Last Admin: 05/28/22 08:51 Dose: 20 mg Documented By: SNEHA Quetiapine Fumarate (Quetiapine Fumarate 100 Mg Tablet) 100 mg PO BEDTIME PRN PRN Reason: Sleep Last Admin: 05/28/22 20:56 Dose: 100 mg Documented By: VICK Senna (Sennosides 8.6 Mg Tablet) 8.6 mg PO BID PRN PRN Reason: Constipation Last Admin: 05/28/22 15:17 Dose: 8.6 mg Documented By: SNEHA Sodium Biphosphate/Sodium Phosphate (Sodium Phosphate,[place]-Dibasic 133 Ml Enema) 133 ml [place] ONCE PRN PRN Reason: Constipation Last Admin: 05/27/22 15:14 Dose: 133 ml Documented By: HENRY Sodium Biphosphate/Sodium Phosphate (Sodium Phosphate,[place]-Dibasic 133 Ml Enema) 133 ml [place] ONCE PRN PRN Reason: Constipation Sodium Chloride (0.9 % Sodium Chloride Flush 3 Ml Syringe) 3 ml IVFLUSH QSHIFT [facility] Last Admin: 05/28/22 20:49 Dose: 3 ml Documented By: VICK Tamsulosin HCl (Tamsulosin Hcl 0.4 Mg Capsule) 0.4 mg PO DAILY [facility] Last Admin: 05/28/22 08:50 Dose: 0.4 mg Documented By: SNEHA Vitamin D (Cholecalciferol (Vitamin D3) 25 Mcg Tablet) 25 mcg PO DAILY [facility] Last Admin: 05/28/22 08:50 Dose: 25 mcg Documented By: SNEHA Zolpidem Tartrate (Zolpidem Tartrate 5 Mg Tablet) 5 mg PO BEDTIME PRN PRN Reason: Insomnia Last Admin: 05/28/22 22:52 Dose: 5 mg Documented By: ALESHIARISM Labs CBC & Chem 7: 05/24/22 07:52 05/22/22 08:01 Assessment and Plan (1) Hematuria: Status: Acute (2) Abnormal EKG: Status: Acute (3) Urinary tract infection: Status: Acute (4) Acute retention of urine: Status: Acute (5) Acute exacerbation of chronic obstructive pulmonary disease: Status: Acute Plan 76-year-old male with history of 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 Admitting for COPD exacerbation and UTI. 1. COPD exacerbation--acute exacerbation Prednisone 20 daily continue nebs 2. ?CAD had heart stents 6 years ago and also has history of Ykjcb-[id number]-Njbki: continue statin, ALLISON, BB, ASA Patient has mild elevated troponin, also has EKG changes as above--will get old ecg for comparaison, repeat ecg cardiology following, no further testing at this time 3. BPH: Was draining almost 1 L of urine. Status post Rodas Continue Flomax and finasteride Urology recommends outpatient follow up for voiding trial 4. Hypercholesteremia and hypothyroidism as well as hypertension: Home med reconciliation is still pending 5. UTI: Patient was given cefepime initially, started on ceftriaxone, urine culture ordered.? negative culture, ceftin po 6.Hematuria:multifactorial:uti/urinary retention,? irritation due to rodas continue to moniter added urology eval constiaption mom, miralax but effect, add enema..Seen by surgery no indication for desimpaction as no stool in vault DVT prophylaxis: hold subQ Lovenox due to hematuria,mech devices--will reattempt lovenox Patient has COPD exacerbation/UTI-started on nebs, steroids and antibiotics, hematuria monitering. anticipate going home later today if has bowel movment Quality Stroke Does the patient have a stroke diagnosis?: No VTE Prior VTE?: No VTE Risk Level:: Medical - moderate - high VTE Device Contraindication: N/A - Device Ordered VTE Drug Contraindication: N/A - Med Ordered
--- NOTE | 2022-05-29 09:47 | MHC.CM.PN ---
[facility] UPDATED IN [facility]. CM FOLLOWING FOR HIS DISCHARGE AWAITING BM
[2022-05-29] MEDS: Enoxaparin Sodium 40 MG/0.4 ML SYRINGE SUBCUT (10:12)
[2022-05-29] MEDS: Lidocaine 4 % Patch ADH..PATCH 1 PATCH TRANSDERMA (10:12)
[2022-05-29] MEDS: polyethylene glycoL 3350 17 GM POWD.PACK PO (10:12)
[2022-05-29] MEDS: predniSONE 20 MG TABLET PO (10:13)
[2022-05-29] MEDS: Finasteride 5 MG TABLET PO (10:13)
[2022-05-29] MEDS: Lactulose 20 GM/30 ML SOLUTION PO (10:13)
[2022-05-29] MEDS: Furosemide 20 MG TABLET PO (10:13)
[2022-05-29] MEDS: Losartan Potassium 25 MG TABLET PO (10:14)
[2022-05-29] MEDS: Aspirin 81 MG TAB.CHEW PO (10:14)
[2022-05-29] MEDS: Omeprazole 20 MG CAPSULE.DR PO (10:14)
[2022-05-29] MEDS: Acyclovir 200 MG CAPSULE 400 MG PO ×2 (10:14→20:45)
[2022-05-29] MEDS: buPROPion HCL 75 MG TABLET PO (10:14)
[2022-05-29] MEDS: Tamsulosin HCL 0.4 MG CAPSULE PO (10:14)
[2022-05-29] MEDS: Cholecalciferol (Vitamin D3) 25 MCG TABLET PO (10:14)
[2022-05-29] MEDS: Ascorbic Acid 500 MG TABLET PO ×2 (10:15→20:45)
[2022-05-29] MEDS: Metoprolol Succinate ER 50 MG TAB.ER.24H PO (10:16)
[2022-05-29] MEDS: Atorvastatin Calcium 80 MG TABLET PO (10:16)
[2022-05-29] MEDS: 0.9 % Sodium Chloride Flush 3 ML SYRINGE IVFLUSH ×2 (10:16→20:45)
[2022-05-29] MEDS: Docusate Sodium 100 MG CAPSULE PO (20:44)
[2022-05-29] MEDS: Sennosides 8.6 MG TABLET PO (20:44)
[2022-05-29] MEDS: QUEtiapine Fumarate 100 MG TABLET PO (20:45)
[2022-05-29] MEDS: Milk of Magnesia 30 ML ORAL.SUSP PO (20:45)
[2022-05-29] MEDS: Zolpidem Tartrate 5 MG TABLET PO (22:08)
[2022-05-30 07:37] VITALS: BP 145/82; PULSE 85; RESP 18; TEMP 36.3; O2SAT 92
[2022-05-30] MEDS: Albuterol/Iprat 2.5/0.5MG 3 ML AMPUL.NEB INHALE ×2 (08:19→11:44)
[2022-05-30 08:22] VITALS: PULSE 87; RESP 20; O2SAT 97
[2022-05-30] MEDS: buPROPion HCL 75 MG TABLET PO (09:51)
[2022-05-30] MEDS: Cholecalciferol (Vitamin D3) 25 MCG TABLET PO (09:51)
[2022-05-30] MEDS: Acyclovir 200 MG CAPSULE 400 MG PO (09:51)
[2022-05-30] MEDS: Enoxaparin Sodium 40 MG/0.4 ML SYRINGE SUBCUT (09:51)
[2022-05-30] MEDS: Finasteride 5 MG TABLET PO (09:51)
[2022-05-30] MEDS: Metoprolol Succinate ER 50 MG TAB.ER.24H PO (09:51)
[2022-05-30] MEDS: Furosemide 20 MG TABLET PO (09:51)
[2022-05-30] MEDS: polyethylene glycoL 3350 17 GM POWD.PACK PO (09:51)
[2022-05-30] MEDS: Aspirin 81 MG TAB.CHEW PO (09:52)
[2022-05-30] MEDS: Ascorbic Acid 500 MG TABLET PO (09:52)
[2022-05-30] MEDS: 0.9 % Sodium Chloride Flush 3 ML SYRINGE IVFLUSH (09:52)
[2022-05-30] MEDS: predniSONE 20 MG TABLET PO (09:52)
[2022-05-30] MEDS: Losartan Potassium 25 MG TABLET PO (09:52)
[2022-05-30] MEDS: Atorvastatin Calcium 80 MG TABLET PO (09:52)
[2022-05-30] MEDS: Omeprazole 20 MG CAPSULE.DR PO (09:52)
[2022-05-30] MEDS: Lidocaine 4 % Patch ADH..PATCH 1 PATCH TRANSDERMA (09:52)
[2022-05-30] MEDS: Tamsulosin HCL 0.4 MG CAPSULE PO (09:52)
--- NOTE | 2022-05-30 10:26 | PM.DS ---
DS: Providers Provider Date of Service: 05/30/22 Date of admission: 05/21/22 18:49 Primary care physician: Nonstaff Physician Consults: 05/21/22 18:55 Consult to Cardiology Routine Consulting Provider: [facility] Cardiovascular Services Reason for consultation: ekg chnages /elevated trops /hx of cad 05/24/22 09:21 Consult to Urology Routine Consulting Provider: Ho Santana Reason for consultation: urinary reptetion,bph,hematuria 05/27/22 17:35 Consult to General Surgery Routine Consulting Provider: Austin Madrigal Reason for consultation: fecal impaction Has provider been notified: No DS: Diagnosis Discharge Diagnosis (1) Hematuria: Status: Resolved (2) Abnormal EKG: Status: Resolved (3) Urinary tract infection: Status: Resolved (4) Acute retention of urine: Status: Resolved (5) Acute exacerbation of chronic obstructive pulmonary disease: Status: Resolved DS: Summary Hospital Course Hospital Course: Attending physician on admission: Prince Joseph Chief Complaint: sob , uti 76-year-old male with history of advanced? COPD who is oxygen dependent,wpw, cad s/p stents 6 years ago, BPH high cholesterol, hyperthyroidism, hypertension, GERD who presents with 3 days of difficulty urinating.? Patient reports 2 weeks ago he started on oral antibiotic which she does not know the name of for presumed pneumonia.? Patient says that he was feeling initially better with shortness of breath the so and then says slowly his shortness of breath started getting worse and also started having cough with yellowish phlegm.? In addition he was having trouble urinating was urinating in very small amounts and history of BPH. Denies any? nausea or vomiting or fever or chills, has some gaseous sensation in the abdomen . Denies any new complaint of chest pain Denies any weakness or numbness. Denies any sick contact or travel recently. He is COVID vaccinatedx4 [employer]. Lab imaging EKG reviewed: Patient has white count of 11.3, BUN 17, creatinine 1.07, calcium 10.9, troponin x2 84 range flat. EKG has v1-v3 t wave inversion. Chest x-ray and CTA:? Says has emphysema. Hospital course: 76-year-old male with history of advanced? COPD who is oxygen dependent,wpw, cad s/p stents 6 years ago, BPH high cholesterol, hyperthyroidism, hypertension, GERD . Patient was essentially admitted for exacerbation of COPD, UTI noted to have urinary retention, UTI and developped hematuria once a cather was inserted. Hospital course was further complicated severe constipation. Over all his doing much better, no respiratory difficulty, breathing easy, UTI was treated with Ceftriaxone, culture was negative. Will trat for 5 more days with ceftin giving rodas in place. He is on flomax. He was seen by Dr. Santana for urinary retention and is recommending leaving rodas in and to do outpatient voiding trial in 3 to 4 weeks,. rodas is function fine. Hematuria believed to be traumatic from rodas insertion has resolved. As for severe constipation.. He was advise to walk, drink plenty of fluid and was given enema, colace, kee Miralax and eventually lactulose and has had larege amount of stool and is feeling better. He was seen by Dr. Madrigal from surgery and rectal exam at that time did not show stool in the vault to disimpact, plan was to to do imaging if this did not resolve but not needed at this time since this has resolved. Will be sent home with colace, dulcolax and Miralax. COPD exacerbation was treated with IV steroid and later transition to oral Prednsone and has been on nearly steroid for 10 days and at this time no further indication for steroid but will continue inhalers and advised not to smoke. Time Spent with Patient Time attestation: Total time spent providing and/or coordinating discharge services: Discharge coordination time: Greater than 30 minutes Quality: Safe Use of Opioids Does Pt have an Active Cancer Diagnosis on the Problem List?: No Quality: Stroke Does the patient have a stroke diagnosis?: No Physical Exam Vital Signs: Vital Signs: Last Vital Signs Temp 97.4 F 05/30/22 07:37 Pulse 87 05/30/22 08:22 Resp 20 05/30/22 08:22 BP 145/82 H 05/30/22 07:37 Pulse Ox 92 05/30/22 07:37 O2 Del Method 05/30/22 07:37 O2 Flow Rate 3 05/30/22 07:37 Oxygen Flow Rate 3 05/21/22 13:44 BMI result Body Mass Index 23.4 Const: Other: General: AO X 3, no acute distress Resp: CTA bilateral CVS: S1,S2,RRR GI: +BS, NT, no distention, no guarding Skin: No rash Neuro: motor grossly intact Psych: appropriate affect Discharge Plan Discharge Anticipated Discharge Date/Time: 05/30/22 10:18 Patient Disposition: Home Health Service Discharge Diagnosis: copd exacerbation, urinary retention, uti, hematuria, constipation Referrals: Roney FLOWER [Outside] - 1 Week Physician,Omartaethel [Primary Care Provider] - 1 Week Discharge Medications: New polyethylene glycol 3350 17 gram Powder In Packet 17 g PO DAILY PRN (Reason: Constipation) Qty: 30 0RF docusate sodium 100 mg Capsule 100 mg PO BID PRN (Reason: soften stool) Qty: 60 0RF Continued sennosides [senna] 8.6 mg Tablet 8.6 mg PO BID PRN (Reason: Constipation) metoprolol succinate 50 mg Tablet Extended Release 24 Hr 50 mg PO DAILY alendronate [Fosamax] 70 mg Tablet 70 mg PO PEREYRA tramadol 50 mg Tablet 50 mg PO DAILY PRN (Reason: Pain) quetiapine 100 mg Tablet 100 mg PO BEDTIME PRN (Reason: Sleep) guaifenesin 200 mg Tablet 400 mg PO BID PRN (Reason: Cough) lorazepam 0.5 mg Tablet 0.5 mg PO TID PRN (Reason: Anxiety) calcium carbonate 500 mg calcium (1,250 mg) Tablet 1,000 mg PO DAILY ascorbic acid (vitamin C) [Vitamin C] 500 mg Tablet 500 mg PO BID tamsulosin [Flomax] 0.4 mg Capsule 0.4 mg PO DAILY@1700 lidocaine [Lidoderm] 5 % Adhesive Patch,Medicated 1 patch TOPICAL DAILY Rx Instructions: left shoulder losartan 25 mg Tablet 25 mg PO DAILY ibuprofen 400 mg Tablet 400 mg PO Q8H PRN (Reason: Pain, Mild) bupropion HCl 75 mg Tablet 75 mg PO DAILY nitroglycerin 0.4 mg Tablet, Sublingual 0.4 mg SUBLINGUAL Q5M PRN (Reason: Chest Pain) Rx Instructions: do not exceed 3 doses per episode methimazole 5 mg Tablet 5 mg PO MOWEFR budesonide 0.25 mg/2 mL Suspension For Nebulization 0.25 mg INHALATION BID omeprazole 20 mg Capsule,Delayed Release(Dr/Ec) 20 mg PO DAILY aspirin 81 mg Tablet,Chewable 81 mg PO DAILY acyclovir 200 mg Capsule 400 mg PO BID zaleplon 10 mg Capsule 10 - 20 mg PO BEDTIME PRN (Reason: Sleep) Rx Instructions: must avoid high-fat meal/food immediately before taking dose furosemide [Lasix] 20 mg Tablet 20 mg PO SUTUTHSA furosemide [Lasix] 20 mg Tablet 40 mg PO MOWEFR albuterol sulfate [ProAir HFA] 90 mcg/actuation Hfa Aerosol Inhaler 2 puff INHALATION QID PRN (Reason: Shortness Of Breath) finasteride [Proscar] 5 mg Tablet 5 mg PO DAILY loratadine [Claritin] 10 mg Tablet 10 mg PO DAILY PRN (Reason: Allergy Symptoms) Lactobacillus acidophilus Tablet,Chewable 1 tab PO DAILY rosuvastatin [Crestor] 40 mg Tablet 20 mg PO DAILY cholecalciferol (vitamin D3) [Vitamin D3] 25 mcg (1,000 unit) Tablet 25 mcg PO DAILY tiotropium-olodaterol 2.5-2.5 mcg/actuation Mist 2 puff INHALATION DAILY No Action nitrofurantoin monohyd/m-cryst [Macrobid] 100 mg capsule 100 mg PO Q12H 7 Days Qty: 14 0RF Rx Instructions: must administer with a meal/food terbinafine HCl 1 % Cream 1 appl TOPICAL BID quetiapine 100 mg Tablet 100 mg PO BEDTIME carboxymethylcellulose sodium 0.5 % Drops 1 drp OPHTHALMIC (EYE) QID PRN (Reason: Dry Eyes) white petrolatum-mineral oil Cream 1 appl TOPICAL DAILY PRN (Reason: Dry Skin) cephalexin 500 mg capsule 500 mg PO BID Qty: 10 0RF Discharge Orders: Discharge Order (Routine); Ordered 05/30/22 Ordered By: Sg Sunshine Diet: Advance to usual diet Activity on Discharge: As tolerated Stand Alone Forms: Patient Portal Discharge page Care Plan Goals: Full recovery from copd, constiaption, resultion of urinary retention Health Concerns: Urinary retention : to contineu use of folay and to follow up with Dr. Santana in 3 to 4 weeks for voiding trial UTI--take Ceftin as directed COPD continue use of inhalers , no smoking and follow up with your Doctor in a week, call for appointment Constiaption: this has resolved, drink plenty of fluid, get enough walk, take Senna, bolace and Miralax as directed May flush rodas with 60 cc of sterile water as needed for blockage or increased sediment. If rodas becomes dislodged, may replace with size 16 Fr. And then routinely every 4 weeks. Plan of Treatment: as above Assessment: as above Discharge Date/Time: 05/30/22 15:40
--- NOTE | 2022-05-30 10:47 | P.F2F_ITS ---
Service Date Service Date: 05/30/22 Encounter Date of encounter: 05/30/22 Reasons for Services Signs and symptoms assessed: weakness due to prolonged hospitalization,urianry retention has rodas catheter Reason for long term: teach disease management and other (rodas care and teaching) Homebound: Leaving the home is medically contraindicated at this time without the asist of a device and/or another person due th the listed conditions above and below. Reason homebound: unsteady gait / fall risk and poor balance / fall risk Homebound supporting statement: Homebound due to weakness from prolonged hospitalization and need the assitance of another person Certification: Based on the above findings, I certify that this patient is confined to the home and needs intermittent long term care, physical therapy and/or speech therapy, or continues to need occupational therapy. The patient is under my care, and I have initiated the establishment of the plan of care. The patient will be followed by a physician who will periodically review the plan of care.
[2022-05-30 11:46] VITALS: PULSE 96; RESP 20; O2SAT 96
[2022-05-30 11:55] VITALS: BP 127/94; PULSE 90; RESP 18; TEMP 36.8; O2SAT 95
== END 2022-05-30 15:40 | disposition home health service (06) | DRG 191 ==
LOC: HO.ED 18:24 → HO.EDOVER 18:56 → HO.IMC 05-22 19:16 → HO.S3 05-23 15:11
PROVIDERS: Nurse Practitioner Family; Admitting Provider Internal Medicine; Emergency Provider Internal Medicine; Visit Provider Internal Medicine
DX: J44.1 Chronic obstructive pulmonary disease with (acute) exacerbation (principal); J96.10 Chronic respiratory failure, unspecified whether with hypoxia or hypercapnia; N39.0 Urinary tract infection, site not specified; T83.83XA Hemorrhage due to genitourinary prosthetic devices, implants and grafts, initial encounter; N40.1 Benign prostatic hyperplasia with lower urinary tract symptoms; I25.10 Atherosclerotic heart disease of native coronary artery without angina pectoris; E05.90 Thyrotoxicosis, unspecified without thyrotoxic crisis or storm; I45.6 Pre-excitation syndrome; Z95.5 Presence of coronary angioplasty implant and graft; K59.09 Other constipation; Y73.8 Miscellaneous gastroenterology and urology devices associated with adverse incidents, not elsewhere classified; R31.9 Hematuria, unspecified; R33.8 Other retention of urine; E78.00 Pure hypercholesterolemia, unspecified; Z20.822 Contact with and (suspected) exposure to COVID-19; Z99.81 Dependence on supplemental oxygen; Z87.891 Personal history of nicotine dependence; Z79.82 Long term (current) use of aspirin; Z79.899 Other long term (current) drug therapy
CPT/HCPCS: 36415; 71046; 71275; 80048; 80076; 81001; 83036; 83605; 83735; 83880; 84484; 85025; 85027; 87040; 87635; 93005; 93306; 94640; 96365; 96375; 97162; 99285; C1758; J0692; J0696; J1650; J2920; J2930; Q9957; Q9967

== ENCOUNTER 2022-06-12 22:08 | Emergency (ER) | payer OTHER, SELFPAY ==
[2022-06-12 22:11] VITALS: BMI 22.6
[2022-06-12 22:13] VITALS: BP 157/70; PULSE 75; RESP 17; O2SAT 99
--- NOTE | 2022-06-12 22:46 | ED_ITS ---
HPI - General Adult General Chief complaint: Abdominal Pain <TONI León Last Filed: 06/13/22 01:53> Stated complaint: abd Distention/blood in catheter <TONI León Last Filed: 06/13/22 01:53> Time Seen by Provider: 06/12/22 22:14 <TONI León Last Filed: 06/13/22 01:53> Source: patient and EMS <TONI León Last Filed: 06/13/22 01:53> Mode of arrival: EMS <TONI León Last Filed: 06/13/22 01:53> Limitations: no limitations <TONI León Last Filed: 06/13/22 01:53> History of Present Illness HPI narrative: Patient is a 76 year old male presenting to the emergency department today with blood in his catheter and lower abdominal pain. Patient states that the visiting nurse changed his catheter today and it hasn't been working right ever since. Patient states that all that has drained into the bag is blood and no urine. Patient states that it was working completely fine before this. Patient denies any dizziness, lightheadedness, nausea, vomiting, fever, chills, blurry vision, double vision, loss of vision, chest pain, difficulty breathing, shortness of breath, back pain, night sweats, pain with urination, increased urinary frequency, increased urinary urgency, blood in his stool, syncope or a near syncopal episode, recent trauma or falls, bowel incontinence, bladder inc ontinence, bowel retention, bladder retention, or any other complaints at this time. <TONI León Last Filed: 06/13/22 01:53> Onset (ago): hour(s) <TONI León Last Filed: 06/13/22 01:53> Location: abdomen <TONI León Last Filed: 06/13/22 01:53> Radiation: non-radiation <TONI León Last Filed: 06/13/22 01:53> Severity: mild <TONI León Last Filed: 06/13/22 01:53> Severity scale (1-10): 4 <TONI León Last Filed: 06/13/22 01:53> Quality: dull and constant <TONI León - Last Filed: 06/13/22 01:53> Pain Consistency: constant <TONI León - Last Filed: 06/13/22 01:53> Relieving factors: none <TONI León - Last Filed: 06/13/22 01:53> Exacerbating factors: none <TONI León - Last Filed: 06/13/22 01:53> Associated symptoms: denies other symptoms <TONI León - Last Filed: 06/13/22 01:53> Treatments prior to arrival: none <TONI León - Last Filed: 06/13/22 01:53> Related Data Home medications: Home Medications Medication Instructions Recorded Confirmed Lactobacillus acidophilus 1 tab PO DAILY 05/21/22 05/21/22 acyclovir 200 mg capsule 400 mg PO BID 05/21/22 05/21/22 albuterol sulfate 90 mcg/actuation 2 puff inhalation QID PRN 05/21/22 05/21/22 aerosol inhaler (ProAir HFA) Shortness Of Breath alendronate 70 mg tablet (Fosamax) 70 mg PO PEREYRA 05/21/22 05/21/22 ascorbic acid (vitamin C) 500 mg 500 mg PO BID 05/21/22 05/21/22 tablet (Vitamin C) aspirin 81 mg chewable tablet 81 mg PO DAILY 05/21/22 05/21/22 budesonide 0.25 mg/2 mL suspension 0.25 mg inhalation BID 05/21/22 05/21/22 for nebulization bupropion HCl 75 mg tablet 75 mg PO DAILY 05/21/22 05/21/22 calcium carbonate 500 mg calcium 1,000 mg PO DAILY 05/21/22 05/21/22 (1,250 mg) tablet cholecalciferol (vitamin D3) 25 25 mcg PO DAILY 05/21/22 05/21/22 mcg (1,000 unit) tablet (Vitamin D3) docusate sodium 100 mg capsule 100 mg PO BID PRN soften stool 05/21/22 05/21/22 (Colace) finasteride 5 mg tablet (Proscar) 5 mg PO DAILY 05/21/22 05/21/22 furosemide 20 mg tablet (Lasix) 20 mg PO SUTUTHSA 05/21/22 05/21/22 furosemide 20 mg tablet (Lasix) 40 mg PO MOWEFR 05/21/22 05/21/22 guaifenesin 200 mg tablet 400 mg PO BID PRN Cough 05/21/22 05/21/22 ibuprofen 400 mg tablet 400 mg PO Q8H PRN Pain 05/21/22 05/21/22 lidocaine 5 % topical patch 1 patch topical DAILY 05/21/22 05/21/22 (Lidoderm) loratadine 10 mg tablet (Claritin) 10 mg PO DAILY PRN Allergy Symptoms 05/21/22 05/21/22 lorazepam 0.5 mg tablet 0.5 mg PO TID PRN Anxiety 05/21/22 05/21/22 losartan 25 mg tablet 25 mg PO DAILY 05/21/22 05/21/22 methimazole 5 mg tablet 5 mg PO MOWEFR 05/21/22 05/21/22 metoprolol succinate 50 mg 50 mg PO DAILY 05/21/22 05/21/22 tablet,extended release 24 hr nitroglycerin 0.4 mg sublingual 0.4 mg sublingual Q5M PRN Chest 05/21/22 05/21/22 tablet Pain omeprazole 20 mg capsule,delayed 20 mg PO DAILY 05/21/22 05/21/22 release polyethylene glycol 3350 17 gram 17 g PO DAILY 05/21/22 05/21/22 oral powder packet (Miralax) quetiapine 100 mg tablet 100 mg PO BEDTIME PRN Sleep 05/21/22 05/21/22 rosuvastatin 40 mg tablet (Crestor) 20 mg PO DAILY 05/21/22 05/21/22 sennosides 8.6 mg tablet (senna) 8.6 mg PO BID PRN Constipation 05/21/22 05/21/22 tamsulosin 0.4 mg capsule (Flomax) 0.4 mg PO DAILY 05/21/22 05/21/22 tiotropium 2.5 mcg-olodaterol 2.5 2 puff inhalation DAILY 05/21/22 05/21/22 mcg/actuation mist for inhalation tramadol 50 mg tablet 50 mg PO DAILY PRN Pain 05/21/22 05/21/22 zaleplon 10 mg capsule 10 mg PO BEDTIME PRN Sleep 05/21/22 05/21/22 Previous Rx's Medication Instructions Recorded cefuroxime axetil 250 mg tablet 250 mg PO BID #10 tabs 05/30/22 docusate sodium 100 mg capsule 100 mg PO BID PRN soften stool #60 05/30/22 caps polyethylene glycol 3350 17 gram 17 g PO DAILY PRN Constipation #30 05/30/22 oral powder packet ea sennosides 8.6 mg tablet (Senna 8.6 mg PO BID PRN Constipation #30 05/30/22 Lax) tabs <TONI León Last Filed: 06/13/22 01:53> Allergies/adverse reactions: Allergies Allergy/AdvReac Type Severity Reaction Status Date / Time No Known Allergies Allergy Unverified 05/29/20 16:52 [No Known Allergies*] <TONI León Last Filed: 06/13/22 01:53> Review of Systems Constitutional: Constitutional: Reports no additional constitutional complaints, Denies chills, Denies fever(s) and Denies night sweats <TONI León Last Filed: 06/13/22 01:53> Eyes: Eyes: Reports no additional eye complaints, Denies blurry vision, Denies change in vision, Denies diplopia, Denies eye discharge, Denies loss of vision and Denies eye pain <TONI León Last Filed: 06/13/22 01:53> ENT: Denies dizziness <TONI León Last Filed: 06/13/22 01:53> Cardiovascular: Cardiovascular: Reports no additional cardiovascular complaints, Denies chest pain, Denies lightheadedness, Denies Loss of Consciousness and Denies dyspnea <TONI León Last Filed: 06/13/22 01:53> Respiratory: Respiratory: Reports no additional respiratory complaints and Denies dyspnea <TONI León Last Filed: 06/13/22 01:53> Gastrointestinal: Gastrointestinal: Reports no additional gastrointestinal complaints, Reports abdominal pain, Denies melena, Denies hematochezia, Denies change in bowel habits and Denies change in stool character <TONI León Last Filed: 06/13/22 01:53> Genitourinary: Genitourinary: Reports no additional male genitourinary complaints, Reports hematuria and Reports oliguria <TONI León - Last Filed: 06/13/22 01:53> Musculoskeletal: Musculoskeletal: Reports no additional musculoskeletal complaints, Denies numbness and Denies tingling <TONI León - Last Filed: 06/13/22 01:53> Neurologic: Denies dizziness, Denies loss of vision, Denies numbness and Denies tingling <TONI León - Last Filed: 06/13/22 01:53> Psychiatric: Psychiatric: Reports no additional psychiatric complaints <TONI eLón - Last Filed: 06/13/22 01:53> Endocrine: Endocrine: Reports no additional endocrine complaints <TONI León - Last Filed: 06/13/22 01:53> Hematologic/Lymphatic: Hematologic/Lymphatic: Reports no additional hematologic/lymphatic complaints <TONI León - Last Filed: 06/13/22 01:53> Allergic/Immunologic: Allergic/Immunologic: Reports no additional allergic/immunologic complaints <TONI León - Last Filed: 06/13/22 01:53> [facility] Past Medical History Attestation statement: The following information was validated with the patient. <TONI León - Last Filed: 06/13/22 01:53> Source: old records reviewed <TONI León - Last Filed: 06/13/22 01:53> Medical History: Medical History CAD (coronary artery disease) Constipation WPW (Cjnmn-Jwjrurkyg-Sqipk syndrome) <TONI León - Last Filed: 06/13/22 01:53> Social History Social History: Social History Household Members: Children and Other Household Members Other:: Caregiver, son and daughter Housing: House Alcohol intake: never Patient Tobacco Use Status: Former Tobacco user Advance Directives: No service: Yes Current occupational status: disabled <TONI León - Last Filed: 06/13/22 01:53> Physical Exam ED Vital Signs: Vital Signs - 24 hr 06/12/22 22:13 06/13/22 01:00 06/13/22 01:15 Pulse Rate 75 110 H 122 H Respiratory Rate 17 20 16 Blood Pressure 157/70 H 132/88 108/77 Pulse Oximetry 99 100 94 Oxygen Delivery Method Nasal Cannula Nasal Cannula Nasal Cannula Oxygen Flow Rate 2 2 2 06/13/22 01:17 06/13/22 01:25 Pulse Rate 118 H 120 H Respiratory Rate 8 L 16 Blood Pressure 110/70 161/84 H Pulse Oximetry 94 94 Oxygen Delivery Method Nasal Cannula Nasal Cannula Oxygen Flow Rate 2 2 BMI result Body Mass Index 22.6 <TONI León Last Filed: 06/13/22 01:53> Vital Signs - 24 hr 06/12/22 22:13 06/13/22 01:00 06/13/22 01:15 Pulse Rate 75 110 H 122 H Respiratory Rate 17 20 16 Blood Pressure 157/70 H 132/88 108/77 Pulse Oximetry 99 100 94 Oxygen Delivery Method Nasal Cannula Nasal Cannula Nasal Cannula Oxygen Flow Rate 2 2 2 06/13/22 01:17 06/13/22 01:25 Pulse Rate 118 H 120 H Respiratory Rate 8 L 16 Blood Pressure 110/70 161/84 H Pulse Oximetry 94 94 Oxygen Delivery Method Nasal Cannula Nasal Cannula Oxygen Flow Rate 2 2 BMI result Body Mass Index 22.6 <Irineo Porter MD - Last Filed: 06/13/22 01:49> Const General: cooperative, no acute distress, alert and awake <TONI León Last Filed: 06/13/22 01:53> Nutritional Appearance: well nourished <TONI León Last Filed: 06/13/22 01:53> Orientation/consciousness: patient oriented x3 <TONI León Last Filed: 06/13/22 01:53> Limitations: no limitations <TONI León Last Filed: 06/13/22 01:53> HENMT Head: Yes normal to inspection and Yes atraumatic <TONI León Last Filed: 06/13/22 01:53> Ears: hearing grossly normal bilaterally and external ears normal <TONI León Last Filed: 06/13/22 01:53> General nose exam: Normal external nose present, no nasal discharge noted and no epistaxis <TONI León Last Filed: 06/13/22 01:53> Face and sinus: Yes normal facial exam, No abrasion and No laceration <Kaur Henderson [facility] Last Filed: 06/13/22 01:53> Mouth: Normal oral and palatal mucosa present, no drooling and no muffled voice <Kaur Henderson [facility] Last Filed: 06/13/22 01:53> Eyes General: appearance normal, both eyes and all related structures <Kaur Henderson [place] - Last Filed: 06/13/22 01:53> Periorbital: periorbital findings normal <Kaur Henderson [facility] Last Filed: 06/13/22 01:53> Eyelids: Yes eyelids normal <Kaur Henderson [facility] Last Filed: 06/13/22 01:53> Conjunctivae: conjunctivae normal <Kaur Henderson [facility] Last Filed: 06/13/22 01:53> Pupils: Equal, round and reactive pupils present <Kaur Henderson [place] - Last Filed: 06/13/22 01:53> EOM: EOMs intact bilaterally <Kaur Henderson [facility] Last Filed: 06/13/22 01:53> Neck Neck: Yes normal visual inspection, Yes full ROM and Yes no lymphadenopathy <Kaur Henderson [facility] Last Filed: 06/13/22 01:53> Chest Chest palpation & inspection: normal inspection of the chest <Kaur Henderson [facility] Last Filed: 06/13/22 01:53> Resp Effort & Inspection: normal respiratory effort and able to speak in complete sentences <Kaur Benitezang [facility] Last Filed: 06/13/22 01:53> Auscultation: clear to auscultation bilaterally <Kaur Henderson [facility] Last Filed: 06/13/22 01:53> Cardio Rate: regular rate <Kaur Benitezang [facility] Last Filed: 06/13/22 01:53> Rhythm: regular rhythm <Kaur Henderson [facility] Last Filed: 06/13/22 01:53> GI Inspection: Yes normal to inspection <Kaur BenitezTONI fry Last Filed: 06/13/22 01:53> Palpation (GI): Soft to palpation, not firm, Tenderness to palpation present (GI) (tenderness to palpation of the bilateral lower quadrants), no guarding and not rigid <Kauradrienne Benitezang [place] - Last Filed: 06/13/22 01:53> Other: rodas catheter in place with blood present in bag, no urine present <Kaur Benitezang PR - Last Filed: 06/13/22 01:53> Neuro General: patient oriented x3 and moves all extremities <Kauradrienne Benitezang PR - Last Filed: 06/13/22 01:53> Cranial nerves: Yes Equal, round and reactive pupils present <Kaur Benitezang PR - Last Filed: 06/13/22 01:53> Cognition (Neuro): normal cognition <Kauradrienne Benitezang PR - Last Filed: 06/13/22 01:53> Motor exam (neuro): 5/5 motor strength present throughout <Kaur Benitezang PR - Last Filed: 06/13/22 01:53> Sensory Exam: Normal double simultaneous stimulation for sensation <Kaur Henderson PR - Last Filed: 06/13/22 01:53> Coordination: [id number] test normal <Kauradrienne Benitezang PR - Last Filed: 06/13/22 01:53> Extrem General: Yes normal to inspection, Yes full ROM and Yes capillary refill normal <Kauradrienne BenitezTONI fry - Last Filed: 06/13/22 01:53> Psych Appearance: grossly normal <Kaur BenitezTONI fry - Last Filed: 06/13/22 01:53> Mental Status: mental status grossly normal <TONI León - Last Filed: 06/13/22 01:53> Affect: normal affect <TONI León - Last Filed: 06/13/22 01:53> Attitude: cooperative <TONI León - Last Filed: 06/13/22 01:53> Thought process: Normal thought process present <TONI León - Last Filed: 06/13/22 01:53> Thought content: Normal thought content present <TONI León - Last Filed: 06/13/22 01:53> Insight: Good insight present (Psych) <TONI León - Last Filed: 06/13/22 01:53> Procedures Catheter Insertion (Urinary) Date of insertion: 06/13/22 <Irineo Porter MD - Last Filed: 06/13/22 01:49> Time of insertion: 01:21 <Irineo Porter MD - Last Filed: 06/13/22 01:49> Reason for placing: Yes <Irineo Porter MD - Last Filed: 06/13/22 01:49> Reason for placing indwelling catheter: Urinary obstruction <Irineo Porter MD - Last Filed: 06/13/22 01:49> Bladder scan/ultrasound used before catheterization: Yes <Irineo Porter MD - Last Filed: 06/13/22 01:49> Estimated amount of urine (mLs): 1,000 <Irineo Porter MD - Last Filed: 06/13/22 01:49> Topical anesthesia used: Yes <Irineo Porter MD - Last Filed: 06/13/22 01:49> Catheter type/location: 3-way Urethral <Irineo Porter MD - Last Filed: 06/13/22 01:49> Size (Greek): 22 <Irineo Porter MD - Last Filed: 06/13/22 01:49> Catheter balloon size (mL): 30 <Irineo Porter MD - Last Filed: 06/13/22 01:49> Catheter balloon amount: 25 <Irineo Porter MD - Last Filed: 06/13/22 01:49> Results: successfully catheterized-immediate flow and other (Sure glide guidewire was used to insert [address] Rodas catheter as patient had significant hematuria from the previous Rodas catheter) <Irineo Porter MD - Last Filed: 06/13/22 01:49> Procedure performed: without complications <Irineo Porter MD - Last Filed: 06/13/22 01:49> Medical Decision Making MDM Narrative Medical decision making narrative: Patient is a 76 year old male presenting to the emergency department today with catheter issues. Patient's physical exam showed blood in his rodas catheter with no urine. Patient's blood work was unremarkable. Patient's urine is pending. Patient's initial bladder scan showed 1,000ml. I explained my physical exam findings as well as all test results to the patient and the patient's son. I answered all questions asked by the patient and the patient's son. Patient had a new rodas catheter placed and 1,800 ml was drained. I stressed the importance of the patient taking his medication as prescribed. I stressed the importance of the patient following up with his primary care provider and a urologist. I stressed the importance of the patient returning to the emergency department immediately if his symptoms were to worsen or if he were to develop any dizziness, shortness of breath, difficulty breathing, chest pain, blurry vision, loss of vision, nausea, vomiting, abdominal pain, fever, chills, back pain, or any other complaints. Patient and the patient's son verbalized agreement and understanding with this treatment plan and discharge. <TONI León - Last Filed: 06/13/22 01:53> Medical Records Medical records reviewed: Yes I reviewed the patient's medical records. <TONI León - Last Filed: 06/13/22 01:53> Lab Data Lab results reviewed: Yes I reviewed the patient's lab results. <TONI León - Last Filed: 06/13/22 01:53> Result diagrams: : 06/12/22 23:33 06/12/22 23:33 <TONI León - Last Filed: 06/13/22 01:53> Labs: Lab Results 06/12/22 06/12/22 06/13/22 Range/Units 23:33 23:33 01:45 WBC 16.0 H (4.8-10.8) X10*3/uL RBC 3.94 L (4.60-5.80) X10*6/uL Hgb 12.4 L (14.0-18.0) g/dl Hct 38.1 L (42.0-52.0) % MCV 96.7 (80.0-98.0) fL MCH 31.5 (27.0-33.0) pg MCHC 32.5 (31.0-36.0) g/dl RDW 13.5 (11.0-16.0) % Plt Count 159 L D (160-400) X10*3/uL MPV 10.3 (9.4-12.4) fL Immature Gran % (Auto) 0.3 (0.0-0.4) % Neut % (Auto) 73.3 H (45-73) % Lymph % (Auto) 15.8 L (20-40) % [place] % (Auto) 7.7 (2-11) % Eos % (Auto) 2.4 (0-4) % Baso % (Auto) 0.5 (0-2) % Lymph # (Auto) 2.5 (1.2-4.9) X10*3/uL [place] # (Auto) 1.2 (0.1-1.2) X10*3/uL Eos # (Auto) 0.4 (0.0-0.4) X10*3/uL Baso # (Auto) 0.1 (0.0-0.2) X10*3/uL Abs Immat Gran (auto) 0.05 H (0.00-0.03) X10*3/uL Absolute Neuts (auto) 11.8 H (2.0-8.3) x10*3/uL Absolute Nucleated RBC 0.000 (0.0-0.012) X10*3/uL Nucleated RBC % (auto) 0.0 (0.0-0.2) /100WBC Sodium 140 (135-145) mmol/L Potassium 4.4 (3.3-5.1) mmol/L Chloride 90 L (96-108) mmol/L Carbon Dioxide 32 H (22-29) mmol/L Anion Gap 22 H (12-20) BUN 19 H (9-16) mg/dL Creatinine 1.17 (0.5-1.4) mg/dL Estim Creat Clear Calc 48.2 Estimated GFR > 60 Random Glucose 120 H (60-115) mg/dL Calcium 10.4 H D (8.4-10.2) mg/dL Total Bilirubin 0.6 (0.0-1.0) mg/dL AST 44 H (5-37) U/L ALT 28 (0-40) U/L Alkaline Phosphatase 92 (39-117) U/L Total Protein 6.9 (6.5-8.0) g/dL Albumin 4.0 (3.5-5.0) g/dL Urine Color Red A Urine Appearance Turbid Urine pH 5.5 (5.0-9.0) Ur Specific [place] 1.010 (1.005-1.025) Urine Protein 100 (2+) H (Neg-Trace) mg/dL Urine Glucose (UA) Negative (Negative) mg/dL Urine Ketones Negative (Negative) mg/dL Urine Blood Moderate (2+) H (Negative) Urine Nitrite Negative (Negative) Ur Leukocyte Esterase Large (3+) H (Negative) <TONI León - Last Filed: 06/13/22 01:53> Lab Results 06/12/22 06/12/22 06/13/22 Range/Units 23:33 23:33 01:45 WBC 16.0 H (4.8-10.8) X10*3/uL RBC 3.94 L (4.60-5.80) X10*6/uL Hgb 12.4 L (14.0-18.0) g/dl Hct 38.1 L (42.0-52.0) % MCV 96.7 (80.0-98.0) fL MCH 31.5 (27.0-33.0) pg MCHC 32.5 (31.0-36.0) g/dl RDW 13.5 (11.0-16.0) % Plt Count 159 L D (160-400) X10*3/uL MPV 10.3 (9.4-12.4) fL Immature Gran % (Auto) 0.3 (0.0-0.4) % Neut % (Auto) 73.3 H (45-73) % Lymph % (Auto) 15.8 L (20-40) % [place] % (Auto) 7.7 (2-11) % Eos % (Auto) 2.4 (0-4) % Baso % (Auto) 0.5 (0-2) % Lymph # (Auto) 2.5 (1.2-4.9) X10*3/uL [place] # (Auto) 1.2 (0.1-1.2) X10*3/uL Eos # (Auto) 0.4 (0.0-0.4) X10*3/uL Baso # (Auto) 0.1 (0.0-0.2) X10*3/uL Abs Immat Gran (auto) 0.05 H (0.00-0.03) X10*3/uL Absolute Neuts (auto) 11.8 H (2.0-8.3) x10*3/uL Absolute Nucleated RBC 0.000 (0.0-0.012) X10*3/uL Nucleated RBC % (auto) 0.0 (0.0-0.2) /100WBC Sodium 140 (135-145) mmol/L Potassium 4.4 (3.3-5.1) mmol/L Chloride 90 L (96-108) mmol/L Carbon Dioxide 32 H (22-29) mmol/L Anion Gap 22 H (12-20) BUN 19 H (9-16) mg/dL Creatinine 1.17 (0.5-1.4) mg/dL Estim Creat Clear Calc 48.2 Estimated GFR > 60 Random Glucose 120 H (60-115) mg/dL Calcium 10.4 H D (8.4-10.2) mg/dL Total Bilirubin 0.6 (0.0-1.0) mg/dL AST 44 H (5-37) U/L ALT 28 (0-40) U/L Alkaline Phosphatase 92 (39-117) U/L Total Protein 6.9 (6.5-8.0) g/dL Albumin 4.0 (3.5-5.0) g/dL Urine Color Red A Urine Appearance Turbid Urine pH 5.5 (5.0-9.0) Ur Specific [place] 1.010 (1.005-1.025) Urine Protein 100 (2+) H (Neg-Trace) mg/dL Urine Glucose (UA) Negative (Negative) mg/dL Urine Ketones Negative (Negative) mg/dL Urine Blood Moderate (2+) H (Negative) Urine Nitrite Negative (Negative) Ur Leukocyte Esterase Large (3+) H (Negative) <Irineo Porter MD - Last Filed: 06/13/22 01:49> Discharge Plan Discharge Clinical Impression: Complication, blocked Rodas catheter <TONI León - Last Filed: 06/13/22 01:53> Patient Disposition: Home, Self-Care <TONI León - Last Filed: 06/13/22 01:53> Instructions: Rodas Catheter Placement and Care (ED) <TONI León - Last Filed: 06/13/22 01:53> Additional Instructions: Follow up with your primary care provider and a urologist. Return to the emergency department immediately if your symptoms worsen or if you develop any dizziness, shortness of breath, difficulty breathing, chest pain, blurry vision, loss of vision, nausea, vomiting, abdominal pain, fever, chills, back pain, or any other complaints. <TONI León - Last Filed: 06/13/22 01:53> Prescriptions: No Action sennosides [senna] 8.6 mg Tablet 8.6 mg PO BID PRN (Reason: Constipation) polyethylene glycol 3350 [Miralax] 17 gram Powder In Packet 17 g PO DAILY metoprolol succinate 50 mg Tablet Extended Release 24 Hr 50 mg PO DAILY alendronate [Fosamax] 70 mg Tablet 70 mg PO PEREYRA tramadol 50 mg Tablet 50 mg PO DAILY PRN (Reason: Pain) quetiapine 100 mg Tablet 100 mg PO BEDTIME PRN (Reason: Sleep) guaifenesin 200 mg Tablet 400 mg PO BID PRN (Reason: Cough) lorazepam 0.5 mg Tablet 0.5 mg PO TID PRN (Reason: Anxiety) calcium carbonate 500 mg calcium (1,250 mg) Tablet 1,000 mg PO DAILY ascorbic acid (vitamin C) [Vitamin C] 500 mg Tablet 500 mg PO BID tamsulosin [Flomax] 0.4 mg Capsule 0.4 mg PO DAILY lidocaine [Lidoderm] 5 % Adhesive Patch,Medicated 1 patch TOPICAL DAILY Rx Instructions: left shoulder losartan 25 mg Tablet 25 mg PO DAILY ibuprofen 400 mg Tablet 400 mg PO Q8H PRN (Reason: Pain) bupropion HCl 75 mg Tablet 75 mg PO DAILY nitroglycerin 0.4 mg Tablet, Sublingual 0.4 mg SUBLINGUAL Q5M PRN (Reason: Chest Pain) Rx Instructions: do not exceed 3 doses per episode methimazole 5 mg Tablet 5 mg PO MOWEFR docusate sodium [Colace] 100 mg Capsule 100 mg PO BID PRN (Reason: soften stool) budesonide 0.25 mg/2 mL Suspension For Nebulization 0.25 mg INHALATION BID omeprazole 20 mg Capsule,Delayed Release(Dr/Ec) 20 mg PO DAILY aspirin 81 mg Tablet,Chewable 81 mg PO DAILY acyclovir 200 mg Capsule 400 mg PO BID zaleplon 10 mg Capsule 10 mg PO BEDTIME PRN (Reason: Sleep) Rx Instructions: must avoid high-fat meal/food immediately before taking dose furosemide [Lasix] 20 mg Tablet 20 mg PO SUTUTHSA furosemide [Lasix] 20 mg Tablet 40 mg PO MOWEFR albuterol sulfate [ProAir HFA] 90 mcg/actuation Hfa Aerosol Inhaler 2 puff INHALATION QID PRN (Reason: Shortness Of Breath) finasteride [Proscar] 5 mg Tablet 5 mg PO DAILY loratadine [Claritin] 10 mg Tablet 10 mg PO DAILY PRN (Reason: Allergy Symptoms) Lactobacillus acidophilus Tablet,Chewable 1 tab PO DAILY rosuvastatin [Crestor] 40 mg Tablet 20 mg PO DAILY cholecalciferol (vitamin D3) [Vitamin D3] 25 mcg (1,000 unit) Tablet 25 mcg PO DAILY tiotropium-olodaterol 2.5-2.5 mcg/actuation Mist 2 puff INHALATION DAILY sennosides [Senna Lax] 8.6 mg Tablet 8.6 mg PO BID PRN (Reason: Constipation) Qty: 30 0RF cefuroxime axetil 250 mg Tablet 250 mg PO BID Qty: 10 0RF polyethylene glycol 3350 17 gram Powder In Packet 17 g PO DAILY PRN (Reason: Constipation) Qty: 30 0RF docusate sodium 100 mg Capsule 100 mg PO BID PRN (Reason: soften stool) Qty: 60 0RF <TONI León - Last Filed: 06/13/22 01:53> Referrals: [facility] [place] Family Medicine [Provider Group] (Call to establish and follow up with a primary care provider. If you already have a primary care provider, please follow up with them. ) [facility] [place] Primary Care, Monique [Provider Group] (Call to establish and follow up with a primary care provider. If you already have a primary care provider, please follow up with them. ) [facility] [place] Primary Care,Roney [Provider Group] (Call to establish and follow up with a primary care provider. If you already have a primary care provider, please follow up with them. ) [facility] [place] [facility] [Provider Group] (Call to establish and follow up with a urologist. ) <TONI León - Last Filed: 06/13/22 01:53> Print Language: Serbian <TONI León - Last Filed: 06/13/22 01:53>
[2022-06-12 23:37] LABS: MANUAL DIFF FLAG NO
[2022-06-12 23:38] LABS: Basophils Absolute Auto 0.1 X10*3/uL (0.0-0.2); Basophils Percent Auto 0.5 % (0-2); Eosinophils Absolute Auto 0.4 X10*3/uL (0.0-0.4); Eosinophils Percent Auto 2.4 % (0-4); Hematocrit 38.1 % (42.0-52.0); Hemoglobin 12.4 g/dl (14.0-18.0); Imm Gran Abs Auto 0.05 X10*3/uL (0.00-0.03); Imm Gran Pct Auto 0.3 % (0.0-0.4); Lymphocytes Absolute Auto 2.5 X10*3/uL (1.2-4.9); Lymphocytes Percent Auto 15.8 % (20-40); Mean Corpuscular HGB Conc 32.5 g/dl (31.0-36.0); Mean Corpuscular Hemoglobin 31.5 pg (27.0-33.0); Mean Corpuscular Volume 96.7 fL (80.0-98.0); Mean Platelet Volume 10.3 fL (9.4-12.4); Monocytes Absolute Auto 1.2 X10*3/uL (0.1-1.2); Monocytes Percent Auto 7.7 % (2-11); Neutrophils Absolute Auto 11.8 x10*3/uL (2.0-8.3); Neutrophils Percent Auto 73.3 % (45-73); Platelet Count 159 X10*3/uL (160-400); Red Blood Count 3.94 X10*6/uL (4.60-5.80); Red Cell Distribution Width 13.5 % (11.0-16.0)
[2022-06-12] MEDS: ondansetron HCL 4 MG/2 ML VIAL IVPUSH (23:38)
[2022-06-12] MEDS: Morphine Sulfate 4 MG/ML CARTRIDGE IVPUSH (23:38)
[2022-06-13] VITALS (9 sets, daily range): BP systolic 107–161; BP diastolic 60–88; PULSE 101–122; RESP 8–20; O2SAT 94–100
[2022-06-13 00:02] LABS: Alanine Aminotransferase 28 U/L (0-40); Alkaline Phosphatase 92 U/L (39-117); Anion Gap 22 (12-20); Aspartate Amino Transferase 44 U/L (5-37); Bilirubin Total 0.6 mg/dL (0.0-1.0); Blood Urea Nitrogen 19 mg/dL (9-16); Calcium 10.4 mg/dL (8.4-10.2); Carbon Dioxide 32 mmol/L (22-29); Chloride 90 mmol/L (96-108); Creatinine Clr Calc Pharmacy 48.2; Estimated Glomerular Filt Rate > 60; Glucose Random 120 mg/dL (60-115); Potassium 4.4 mmol/L (3.3-5.1); Sodium 140 mmol/L (135-145); Total Protein 6.9 g/dL (6.5-8.0)
[2022-06-13] MEDS: Lidocaine HCl 2 % Urojet 10 ML JEL.PF.APP TOPICAL ×2 (00:24→01:13)
[2022-06-13] MEDS: fentaNYL citrate/PF 100 MCG/2 ML VIAL 50 MCG IVPUSH ×2 (00:24→01:12)
[2022-06-13] MEDS: Pantoprazole Sodium 40 MG/10 ML VIAL IVPUSH (01:11)
[2022-06-13] MEDS: Naloxone HCl 2 MG/2 ML SYRINGE IVPUSH (01:20)
[2022-06-13 01:53] LABS: Appearance Urine Turbid; Color Urine Red; Glucose Urine UA Negative (Negative); Leukocyte Esterase Urine Large (3+) (Negative); Nitrite Urine Negative (Negative); PH 5.5 (5.0-9.0); UMIC TRIGGER UACC YES; Urine Blood Moderate (2+) (Negative); Urine Ketones Negative (Negative); Urine Protein 100 (2+) mg/dL (Neg-Trace)
--- NOTE | 2022-06-13 01:56 | PC.NURSE ---
This RN attempted to manually irrigate rodas catheter. Unable to install or remove any fluid/urine from tubing. PA aware. Decision was made to remove rodas and place a new one. [address] rodas attempted but RNx2 were unable to pass catheter through prostate. Urine started draining when catheter was in urethra. RN was able to manually flush saline and evacuate large amounts of blood clots with reduction of pain as stated by the patient. PA made aware that we can not advance catheter. Anewar in room and removed rodas that was in urethra. used a ??guide wire to advance a new catheter. 3 way 22F rodas was placed into position as evidence by rapid drainage of dark urine streaked with clots. During Rodas placement patient was given 50mcg x2 of fentanyl for 10/10 pain. (see MAR) Upon completion of rodas placement patient was staring off into the ceiling and was not responding to commands. He maintained his airway and RR were 8/min. oxygen remained greater than 93% 2L. 2mg narcan given IVP per PA (see MAR) patient returned to baseline within 3 minutes stating that his pain was gone and he had no complaints except for being cold. 1800ml dark red clot streaked urine was emptied from rodas. Patient remains on continuous oxygen sensing with frequent RN checks. He states he feels much better.
[2022-06-13 02:05] LABS: Bacteria Urine Trace (None Seen); Calcium Oxalate Crystals Urine Present; Hyaline Casts Urine 0-2 /LPF (0-2); RBC Urine >20 /HPF (0-2); Squamous Epithelial Cell Urine 0-2 /HPF (0-2); UACC Culture Trigger YES; WBC Urine >50 /HPF (0-5)
--- NOTE | 2022-06-13 03:47 | ECG_ITS ---
Test Reason : ABDOMINAL PAIN Blood Pressure : / mmHG Vent. Rate : 111 BPM Atrial Rate : 111 BPM P-R Int : 154 ms QRS Dur : 094 ms QT Int : 322 ms P-R-T Axes : 086 -65 091 degrees QTc Int : 437 ms Sinus tachycardia Left anterior fascicular block Nonspecific T wave abnormality Abnormal ECG When compared with ECG of 21-MAY-2022 14:59, T wave inversion no longer evident in Anterior leads Heart rate has increased Referred By: Tatyana Herrera Electronically Signed By:STAN MICHELE
[2022-06-13] MEDS: 0.9 % Sodium Chloride 500 ML 999 ML IV ×2 (04:24→05:45)
[2022-06-13] MEDS: cefTRIAXone sodium 1 GM in 0.9 % Sodium Chloride 50 ML IV (04:24)
== END 2022-06-13 06:18 | disposition home or self-care (01) ==
PROVIDERS: Physician Assistant Medical; Emergency Provider Internal Medicine
DX: Z46.6 Encounter for fitting and adjustment of urinary device (principal); R10.30 Lower abdominal pain, unspecified; R31.9 Hematuria, unspecified; Z87.891 Personal history of nicotine dependence
CPT/HCPCS: 36415; 51703; 80053; 81001; 85025; 87086; 93005; 96365; 96374; 96375; 96376; 99285; J0696; J2270; J2405; J3010

== ENCOUNTER 2022-06-14 11:24 | Observation (INO) | payer OTHER, SELFPAY ==
--- NOTE | ~2022-06-14 | US_ITS ---
EXAMINATION: US RETROPERITONEAL COMPLETE (RENAL) CLINICAL INFORMATION: Hematuria. COMPARISON: None TECHNIQUE: Real-time imaging of the kidneys and bladder. FINDINGS: RIGHT KIDNEY: 9.2 x 4.6 x 6.0 cm (SAG x AP x TRV). The kidney is normal in size, contour, and echogenicity. Renal cortical thickness is normal. No calculi or focal parenchymal lesions. No hydronephrosis. There is anechoic cyst in the upper pole measuring 1.0 x 0.78 x 0.78 cm. LEFT KIDNEY: 8.5 x 5.3 x 4.8 cm (SAG x AP x TRV). The kidney is normal in size, contour, and echogenicity. Renal cortical thickness is normal. No calculi or focal parenchymal lesions. No hydronephrosis. There is anechoic cyst in the lower pole measuring 0.87 x 1.2 x 1.2 cm. BLADDER: Well distended and normal. Bilateral ureteral jets are not demonstrated. Prevoid bladder volume is 505.5 mL. Postvoid volume is 98.1 mL. There is a Lamas's catheter in bladder echogenic debris noted. US/US retroperitoneal comp IMPRESSION: Bilateral renal cysts. No echogenic renal calculi or hydronephrosis. There is echogenic debris within the bladder with a Lamas's catheter in bladder. Bilateral ureteral jets are not seen.
--- NOTE | ~2022-06-14 | CT_ITS ---
EXAMINATION: CT HEAD WITHOUT CONTRAST CLINICAL INFORMATION: Left hand numbness COMPARISON: CT had 09/23/2017 TECHNIQUE: Contiguous axial imaging was performed from the skull base to vertex without intravenous administration of contrast. Additional 2-D coronal and sagittal reformatted images are generated on the CT workstation and uploaded to PACS. This CT examination was performed using dose optimization techniques as appropriate, variously including the following: *Automated exposure control *Adjustment of mA and/or kV according to patient size (this includes techniques or standardized protocols for targeted exams where dose is matched to indication/reason for exam; i.e. extremities or head) *Use of iterative reconstruction technique DLP: 740 mGy-cm FINDINGS: There is no intracranial hemorrhage or hematoma. No intraventricular or subarachnoid hemorrhage. Chronic small left subdural hygroma again seen borderline increased from 2018, still just under 5 mm thickness. There is no hydrocephalus or mass effect or midline shift. Subtle hypodensity in left basal ganglia is stable. There is also an incidental tiny left basal ganglia Jhimhuu-[id number] perivascular space. The chen-white matter differentiation appears well preserved . There are scattered diffuse benign calcifications are involving the falx and tentorium. No extra-axial mass. There is no visible acute territorial infarct or mass lesion. The calvarium appears intact. There is no pneumocephalus or orbital emphysema. The visualized sinuses and middle ears and mastoid air cells show no significant mucosal thickening. There are no air-fluid levels. CT/CT head/brain wo IV con IMPRESSION: No acute intracranial abnormality.
--- NOTE | ~2022-06-14 | CT_ITS ---
EXAMINATION: CT CERVICAL SPINE WITHOUT CONTRAST CLINICAL INFORMATION: Left hand numbness COMPARISON: CT head 06/14/2022, 09/23/2017 TECHNIQUE: Multidetector volumetric CT imaging of the cervical spine is performed without contrast in the axial plane. Additional 2D reformatted coronal and sagittal images are generated on the CT workstation and uploaded to PACS. This CT examination was performed using dose optimization techniques as appropriate, variously including the following: *Automated exposure control *Adjustment of mA and/or kV according to patient size (this includes techniques or standardized protocols for targeted exams where dose is matched to indication/reason for exam; i.e. extremities or head) *Use of iterative reconstruction technique DLP: 364 mGy-cm FINDINGS: There has been prior anterior cervical fusion at C5-C6 with anterior plate and screws. The hardware appears intact. The odontoid is intact. There is no osteolysis or destructive process. The craniocervical junction is normal. There is no cervical vertebral compression, spondylolisthesis, perched facet, or prevertebral soft tissue swelling. There are mild degenerative changes between anterior arch C1 and the dens. Disc narrowing is present at C6-C7. No definite focal osseous narrowing foramina. There is bullous emphysematous changes and scarring lung apices. CT/CT cervical spine wo IV con IMPRESSION: 1. No acute bony abnormality or prevertebral soft tissue swelling. 2. Prior anterior cervical fusion C5-C6. 3. Degenerative disc changes C6-C7.
--- NOTE | ~2022-06-14 | MR_ITS ---
EXAMINATION: MR BRAIN WITHOUT CONTRAST CLINICAL INFORMATION: New onset left hand numbness COMPARISON: Same day CT head without contrast TECHNIQUE: Multiplanar multisequence MR imaging of the brain was obtained without intravenous contrast. FINDINGS: There is no acute infarct on diffusion-weighted imaging. There is no intracranial hemorrhage on iron-sensitive imaging. No extra-axial collection or mass effect/herniation. There is asymmetric prominence of the extra-axial spaces along the left cerebellum and left cerebral hemisphere, of uncertain and doubtful clinical significance. No definite asymmetric volume loss of the left cerebral hemisphere is appreciated. There are several scattered foci of nonspecific supratentorial white matter T2/FLAIR signal abnormality. No hydrocephalus. Mild age-related generalized cerebral volume loss with commensurate sulcal and ventricular prominence. The major flow voids at the skull base are preserved. Partially empty sella The cerebellar tonsils are normally positioned. The craniocervical junction is normal. Marrow signal is within normal limits. The visualized soft tissues are without significant abnormality. No signal abnormality within the paranasal sinuses or within the mastoid air cells. MR/MR head/brain wo con IMPRESSION: No acute infarct or other acute intracranial abnormality
--- NOTE | 2022-06-14 11:42 | ECG_ITS ---
Test Reason : arrhythmia Blood Pressure : / mmHG Vent. Rate : 067 BPM Atrial Rate : 067 BPM P-R Int : 140 ms QRS Dur : 094 ms QT Int : 422 ms P-R-T Axes : 081 -41 072 degrees QTc Int : 445 ms Normal sinus rhythm Left axis deviation Abnormal ECG When compared with ECG of 13-JUN-2022 04:00, Vent. rate has decreased BY 44 BPM Referred By: Kathie Palacio Electronically Signed By:STAN MICHELE
[2022-06-14 11:46] VITALS: BP 105/52; BP 132/84; PULSE 72; PULSE 82; RESP 16; TEMP 36.9; O2SAT 98
--- NOTE | 2022-06-14 11:46 | ED_ITS ---
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 Patient denies any chest pain or palpitations. He reports he woke up with his entire left hand being numb. He described it as pins and needles. He denies any weakness, no difficulty speaking or swallowing. He has never had this before. 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 Patient denies any chest pain or palpitations. He reports he woke up with his entire left hand being numb. He described it as pins and needles. He denies any weakness, no difficulty speaking or swallowing. He has never had this before. <TONI Herndon - Last Filed: 06/14/22 20:52> MD complaint: left hand numbness <TONI Altman - Last Filed: 06/14/22 17:29> Onset (ago): hour(s) <TONI Altman - Last Filed: 06/14/22 17:29> Location: left and upper extremity <TONI Altman - Last Filed: 06/14/22 17:29> Radiation: non-radiation <TONI Altman - Last Filed: 06/14/22 17:29> Severity: moderate <TONI Altman - Last Filed: 06/14/22 17:29> Quality: dull and other (pins/needles) <TONI Altman - Last Filed: 06/14/22 17:29> Pain Consistency: constant <TONI Altman - Last Filed: 06/14/22 17:29> Relieving factors: none <TONI Altman - Last Filed: 06/14/22 17:29> Exacerbating factors: none <TONI Altman - Last Filed: 06/14/22 17:29> Associated symptoms: denies other symptoms <TONI Altman - Last Filed: 06/14/22 17:29> Treatments prior to arrival: aspirin <TONI Altman - Last Filed: 06/14/22 17:29> Related Data Home medications: Home Medications Medication Instructions Recorded Confirmed Lactobacillus acidophilus 1 tab PO DAILY 05/21/22 05/21/22 acyclovir 200 mg capsule 400 mg PO BID 05/21/22 05/21/22 albuterol sulfate 90 mcg/actuation 2 puff inhalation QID PRN 05/21/22 05/21/22 aerosol inhaler (ProAir HFA) Shortness Of Breath alendronate 70 mg tablet (Fosamax) 70 mg PO PEREYRA 05/21/22 05/21/22 ascorbic acid (vitamin C) 500 mg 500 mg PO BID 05/21/22 05/21/22 tablet (Vitamin C) aspirin 81 mg chewable tablet 81 mg PO DAILY 05/21/22 05/21/22 budesonide 0.25 mg/2 mL suspension 0.25 mg inhalation BID 05/21/22 05/21/22 for nebulization bupropion HCl 75 mg tablet 75 mg PO DAILY 05/21/22 05/21/22 calcium carbonate 500 mg calcium 1,000 mg PO DAILY 05/21/22 05/21/22 (1,250 mg) tablet cholecalciferol (vitamin D3) 25 25 mcg PO DAILY 05/21/22 05/21/22 mcg (1,000 unit) tablet (Vitamin D3) docusate sodium 100 mg capsule 100 mg PO BID PRN soften stool 05/21/22 05/21/22 (Colace) finasteride 5 mg tablet (Proscar) 5 mg PO DAILY 05/21/22 05/21/22 furosemide 20 mg tablet (Lasix) 20 mg PO SUTUTHSA 05/21/22 05/21/22 furosemide 20 mg tablet (Lasix) 40 mg PO MOWEFR 05/21/22 05/21/22 guaifenesin 200 mg tablet 400 mg PO BID PRN Cough 05/21/22 05/21/22 ibuprofen 400 mg tablet 400 mg PO Q8H PRN Pain 05/21/22 05/21/22 lidocaine 5 % topical patch 1 patch topical DAILY 05/21/22 05/21/22 (Lidoderm) loratadine 10 mg tablet (Claritin) 10 mg PO DAILY PRN Allergy Symptoms 05/21/22 05/21/22 lorazepam 0.5 mg tablet 0.5 mg PO TID PRN Anxiety 05/21/22 05/21/22 losartan 25 mg tablet 25 mg PO DAILY 05/21/22 05/21/22 methimazole 5 mg tablet 5 mg PO MOWEFR 05/21/22 05/21/22 metoprolol succinate 50 mg 50 mg PO DAILY 05/21/22 05/21/22 tablet,extended release 24 hr nitroglycerin 0.4 mg sublingual 0.4 mg sublingual Q5M PRN Chest 05/21/22 05/21/22 tablet Pain omeprazole 20 mg capsule,delayed 20 mg PO DAILY 05/21/22 05/21/22 release polyethylene glycol 3350 17 gram 17 g PO DAILY 05/21/22 05/21/22 oral powder packet (Miralax) quetiapine 100 mg tablet 100 mg PO BEDTIME PRN Sleep 05/21/22 05/21/22 rosuvastatin 40 mg tablet (Crestor) 20 mg PO DAILY 05/21/22 05/21/22 sennosides 8.6 mg tablet (senna) 8.6 mg PO BID PRN Constipation 05/21/22 05/21/22 tamsulosin 0.4 mg capsule (Flomax) 0.4 mg PO DAILY 05/21/22 05/21/22 tiotropium 2.5 mcg-olodaterol 2.5 2 puff inhalation DAILY 05/21/22 05/21/22 mcg/actuation mist for inhalation tramadol 50 mg tablet 50 mg PO DAILY PRN Pain 05/21/22 05/21/22 zaleplon 10 mg capsule 10 mg PO BEDTIME PRN Sleep 05/21/22 05/21/22 Previous Rx's Medication Instructions Recorded cefuroxime axetil 250 mg tablet 250 mg PO BID #10 tabs 05/30/22 docusate sodium 100 mg capsule 100 mg PO BID PRN soften stool #60 05/30/22 caps polyethylene glycol 3350 17 gram 17 g PO DAILY PRN Constipation #30 05/30/22 oral powder packet ea sennosides 8.6 mg tablet (Senna 8.6 mg PO BID PRN Constipation #30 05/30/22 Lax) tabs nitrofurantoin 100 mg PO Q12H 7 days #14 caps 06/13/22 monohydrate/macrocrystals 100 mg capsule (Macrobid) <TONI Altman - Last Filed: 06/14/22 17:29> Allergies/adverse reactions: Allergies Allergy/AdvReac Type Severity Reaction Status Date / Time No Known Allergies Allergy Unverified 05/29/20 16:52 [No Known Allergies*] <TONI Altman - Last Filed: 06/14/22 17:29> Review of Systems Review of Systems: Constitutional: No Fever, No Chills ENT/Mouth: No sore throat, No Rhinorrhea, No Swallowing Difficulty Eyes: No Eye Pain, No Swelling, No Redness Cardiovascular: No Chest Pain, + SOB (chronic), No Orthopnea, No Edema Respiratory: No Cough, No Sputum, No Wheezing, No dyspnea Gastrointestinal: No Nausea, No Vomiting, No Diarrhea, No abdominal Pain Genitourinary: No Dysuria, No Urinary Frequency, No Hematuria Musculoskeletal: No joint pain, No Myalgias Skin: No Skin Lesions, No rash Neuro: No Weakness, + Numbness, No Dizziness, No Headache Psych: No Anxiety/Panic, No Depression Heme/Lymph: No Bruising, No Lymphadenopathy Endocrine: No Polyuria, No Polydipsia <TONI Altman - Last Filed: 06/14/22 17:29> [facility], [facility] Past Medical History Medical History: Medical History CAD (coronary artery disease) Constipation WPW (Sknne-Ltpahzacq-Eedbw syndrome) <TONI Altman - Last Filed: 06/14/22 17:29> Social History Social History: Social History Household Members: Children and Other Household Members Other:: Caregiver, son and daughter Housing: House Alcohol intake: never Patient Tobacco Use Status: Former Tobacco user Use of substances other than those prescribed or required for medical reasons: No Advance Directives: No Advance Directives Information Provided: Yes service: Yes Current occupational status: disabled <TONI Altman - Last Filed: 06/14/22 17:29> Physical Exam ED Vital Signs: Vital Signs - 24 hr 06/14/22 11:46 06/14/22 14:33 06/14/22 16:14 Temperature 98.4 F 97.9 F Pulse Rate 72 67 68 Respiratory Rate 16 17 20 Blood Pressure 105/52 L 100/52 L 101/45 L Pulse Oximetry 98 100 96 Oxygen Delivery Method Nasal Cannula Nasal Cannula Nasal Cannula Oxygen Flow Rate 2.5 2 06/14/22 19:27 Temperature 98.5 F Pulse Rate 70 Respiratory Rate 15 Blood Pressure 113/48 L Pulse Oximetry 97 Oxygen Delivery Method Nasal Cannula Oxygen Flow Rate 2 BMI result Body Mass Index 9.4 <TONI Altman - Last Filed: 06/14/22 17:29> Vital Signs - 24 hr 06/14/22 11:46 06/14/22 14:33 06/14/22 16:14 Temperature 98.4 F 97.9 F Pulse Rate 72 67 68 Respiratory Rate 16 17 20 Blood Pressure 105/52 L 100/52 L 101/45 L Pulse Oximetry 98 100 96 Oxygen Delivery Method Nasal Cannula Nasal Cannula Nasal Cannula Oxygen Flow Rate 2.5 2 06/14/22 19:27 Temperature 98.5 F Pulse Rate 70 Respiratory Rate 15 Blood Pressure 113/48 L Pulse Oximetry 97 Oxygen Delivery Method Nasal Cannula Oxygen Flow Rate 2 BMI result Body Mass Index 9.4 <TONI Herndon Last Filed: 06/14/22 20:52> Appearance: Alert. Oriented X3. No acute distress. Eyes: Pupils equal, round and reactive to light. ENT: Pharynx normal. Neck: Normal inspection. Neck supple. CVS: Normal heart rate and rhythm. Pulses normal. Respiratory: No respiratory distress. Breath sounds normal. Abdomen: Soft and nontender. +BS x4 Skin: Skin warm and dry. Normal skin color. Normal skin turgor. No rashes. Extremities: No lower extremity edema. Neuro: Oriented X 3. No motor deficit. Reported subjective sensory deficit of the entire left hand in a glove distribution. Equal janitorial manager strength bilaterally, CN II-XII intact. normal speech and cognition, no facial droop <TONI Altman Last Filed: 06/14/22 17:29> NIH Stroke Scale Internal: Initial- Upon Arrival <TONI Altman Last Filed: 06/14/22 17:29> Level of Consciousness: Alert <TONI Altman Last Filed: 06/14/22 17:29> Level of Consciousness Questions: Answers both questions correctly <TONI Altman Last Filed: 06/14/22 17:29> Level of Consciousness Commands: Performs both tasks correctly <TONI Altman Last Filed: 06/14/22 17:29> Best Gaze: Normal <TONI Altman Last Filed: 06/14/22 17:29> Visual: No visual loss <TONI Altman Last Filed: 06/14/22 17:29> Facial Palsy: Normal <TONI Altman Last Filed: 06/14/22 17:29> Motor Arm (Right): No drift <TONI Altman Last Filed: 06/14/22 17:29> Motor Arm (Left): No drift <TONI Altman Last Filed: 06/14/22 17:29> Motor Leg (Right): No drift <TONI Altman Last Filed: 06/14/22 17:29> Motor Leg (Left): No drift <TONI Altman - Last Filed: 06/14/22 17:29> Limb Ataxia: Absent <TONI Altman - Last Filed: 06/14/22 17:29> Sensory: Mild to moderate sensory loss <TONI Altman - Last Filed: 06/14/22 17:29> Best Language: No aphasia <TONI Altman - Last Filed: 06/14/22 17:29> Dysarthia: Normal <TONI Altman - Last Filed: 06/14/22 17:29> Extinction and Inattention: No abnormality <TONI Altman - Last Filed: 06/14/22 17:29> Score: 1 <TONI Altman - Last Filed: 06/14/22 17:29> 1 <TONI Herndon - Last Filed: 06/14/22 20:52> Course Course Course Narrative: 76 yo male with history of 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 Patient aysmptomatic and reports only new onset left hand numbness that he awoke with this morning. Last known normal last night and he woke up this way. No other focal neurologic finding. Will get CT head/neck, labs for further evaluation. Patient appears to be in NSR on arrival. <TONI Altman - Last Filed: 06/14/22 17:29> Reevaluation(s) Reevaluation #1: EKG with NSR, question of some delta waves which could be consistent with his history of WPW. He has low voltage on his EKG compared to yesterday - bedside ECHO does not show any pericardial effusion. NO pericardial effusion on recent CTA less than a month ago. CT head/neck showing no acute intracranial pathology, prior cervical fusion C5- C6 and degenerative changes C6-C7. Findings should not be causing cervical radiculopathy. Case d/w Dr. Luna - will get MRI brain to r/o CVA. Patient's numbness/tingling persists, otherwise nonfocal and no changes in his neurologic examination. <TONI Altman - Last Filed: 06/14/22 17:29> Reevaluation #2: Labs showing worsening anemia compared to yesterday H/H - 9.6/29.7 from 12.4/38.1. His urine is clear now and he states is cleared last night. Repeated H/H again and it was stable. Drop is from his significant hematuria on 06/12. No further active bleeding. No GI bleeding. Patient updated on plan of care. Signed out to night PA who will f/u MRI results and determine dispo. <TONI Altman - Last Filed: 06/14/22 17:29> Reevaluation #3: MRI negative , upon laboratory study review it is noted patient had a significant drop in hemoglobin hematocrit, continues to downtrend likely secondary to hematuria. Patient's urine was also noted to be infected yesterday, at this time will initiate antibiotics. Plan at this time is for patient to be admitted to the hospitalist team. <TONI Herndon - Last Filed: 06/14/22 20:52> Time: 19:28 <TONI Herndon - Last Filed: 06/14/22 20:52> Medical Decision Making Lab Data Result diagrams: : 06/14/22 13:55 06/14/22 13:55 <TONI Altman - Last Filed: 06/14/22 17:29> Labs: Lab Results 06/14/22 06/14/22 06/14/22 Range/Units 12:40 13:55 13:55 WBC 7.4 (4.8-10.8) X10*3/uL RBC 3.02 L D (4.60-5.80) X10*6/uL Hgb 9.6 L D (14.0-18.0) g/dl Hct 29.7 L D (42.0-52.0) % MCV 98.3 H (80.0-98.0) fL MCH 31.8 (27.0-33.0) pg MCHC 32.3 (31.0-36.0) g/dl RDW 13.8 (11.0-16.0) % Plt Count 130 L (160-400) X10*3/uL MPV 10.7 (9.4-12.4) fL Immature Gran % (Auto) 0.7 H (0.0-0.4) % Neut % (Auto) 71.5 (45-73) % Lymph % (Auto) 11.8 L (20-40) % Pratt % (Auto) 13.2 H (2-11) % Eos % (Auto) 2.4 (0-4) % Baso % (Auto) 0.4 (0-2) % Lymph # (Auto) 0.9 L (1.2-4.9) X10*3/uL Pratt # (Auto) 1.0 (0.1-1.2) X10*3/uL Eos # (Auto) 0.2 (0.0-0.4) X10*3/uL Baso # (Auto) 0.0 (0.0-0.2) X10*3/uL Abs Immat Gran (auto) 0.05 H (0.00-0.03) X10*3/uL Absolute Neuts (auto) 5.3 (2.0-8.3) x10*3/uL Absolute Nucleated RBC 0.000 (0.0-0.012) X10*3/uL Nucleated RBC % (auto) 0.0 (0.0-0.2) /100WBC PT 12.0 (10.0-13.1) SEC INR 1.0 (0.9-1.1) APTT 30.1 (26.0-36.4) SEC Sodium 145 (135-145) mmol/L Potassium 4.0 (3.3-5.1) mmol/L Chloride 98 (96-108) mmol/L Carbon Dioxide 37 H (22-29) mmol/L Anion Gap 14 (12-20) BUN 19 H (9-16) mg/dL Creatinine 1.14 (0.5-1.4) mg/dL Estim Creat Clear Calc 21.9 Estimated GFR > 60 Random Glucose 100 (60-115) mg/dL Calcium 8.4 D (8.4-10.2) mg/dL Phosphorus 4.0 (2.7-4.5) mg/dL Magnesium 1.8 (1.6-2.6) mg/dL Total Bilirubin 0.2 (0.0-1.0) mg/dL Direct Bilirubin < 0.2 (0.0-0.5) mg/dL AST 24 D (5-37) U/L ALT 16 (0-40) U/L Alkaline Phosphatase 57 D (39-117) U/L Total Protein 4.7 L D (6.5-8.0) g/dL Albumin 2.9 L D (3.5-5.0) g/dL Urine Color Urine Appearance Urine pH (5.0-9.0) Ur Specific [place] (1.005-1.025) Urine Protein (Neg-Trace) mg/dL Urine Glucose (UA) (Negative) mg/dL Urine Ketones (Negative) mg/dL Urine Blood (Negative) Urine Nitrite (Negative) Ur Leukocyte Esterase (Negative) Urine RBC (0-2) /HPF Urine WBC (0-5) /HPF Ur Squamous Epith Cells (0-2) /HPF Urine Bacteria (None Seen) Hyaline Casts (0-2) /LPF 06/14/22 06/14/22 Range/Units 13:55 19:58 WBC 7.1 (4.8-10.8) X10*3/uL RBC 2.94 L (4.60-5.80) X10*6/uL Hgb 9.4 L (14.0-18.0) g/dl Hct 29.3 L (42.0-52.0) % MCV 99.7 H (80.0-98.0) fL MCH 32.0 (27.0-33.0) pg MCHC 32.1 (31.0-36.0) g/dl RDW 13.8 (11.0-16.0) % Plt Count 111 L (160-400) X10*3/uL MPV 9.2 L (9.4-12.4) fL Immature Gran % (Auto) 0.3 (0.0-0.4) % Neut % (Auto) 66.7 (45-73) % Lymph % (Auto) 14.2 L (20-40) % Pratt % (Auto) 15.0 H (2-11) % Eos % (Auto) 3.4 (0-4) % Baso % (Auto) 0.4 (0-2) % Lymph # (Auto) 1.0 L (1.2-4.9) X10*3/uL Pratt # (Auto) 1.1 (0.1-1.2) X10*3/uL Eos # (Auto) 0.2 (0.0-0.4) X10*3/uL Baso # (Auto) 0.0 (0.0-0.2) X10*3/uL Abs Immat Gran (auto) 0.02 (0.00-0.03) X10*3/uL Absolute Neuts (auto) 4.7 (2.0-8.3) x10*3/uL Absolute Nucleated RBC 0.000 (0.0-0.012) X10*3/uL Nucleated RBC % (auto) 0.0 (0.0-0.2) /100WBC PT (10.0-13.1) SEC INR (0.9-1.1) APTT (26.0-36.4) SEC Sodium (135-145) mmol/L Potassium (3.3-5.1) mmol/L Chloride (96-108) mmol/L Carbon Dioxide (22-29) mmol/L Anion Gap (12-20) BUN (9-16) mg/dL Creatinine (0.5-1.4) mg/dL Estim Creat Clear Calc Estimated GFR Random Glucose (60-115) mg/dL Calcium (8.4-10.2) mg/dL Phosphorus (2.7-4.5) mg/dL Magnesium (1.6-2.6) mg/dL Total Bilirubin (0.0-1.0) mg/dL Direct Bilirubin (0.0-0.5) mg/dL AST (5-37) U/L ALT (0-40) U/L Alkaline Phosphatase (39-117) U/L Total Protein (6.5-8.0) g/dL Albumin (3.5-5.0) g/dL Urine Color Yellow Urine Appearance Clear Urine pH 5.5 (5.0-9.0) Ur Specific [place] 1.020 (1.005-1.025) Urine Protein 30 (1+) H (Neg-Trace) mg/dL Urine Glucose (UA) Negative (Negative) mg/dL Urine Ketones Trace (Negative) mg/dL Urine Blood Moderate (2+) H (Negative) Urine Nitrite Negative (Negative) Ur Leukocyte Esterase Moderate (2+) H (Negative) Urine RBC >20 H (0-2) /HPF Urine WBC 21-50 H (0-5) /HPF Ur Squamous Epith Cells 3-5 (0-2) /HPF Urine Bacteria None Seen (None Seen) Hyaline Casts 0-2 (0-2) /LPF <TONI Altman - Last Filed: 06/14/22 17:29> Lab Results 06/14/22 06/14/22 06/14/22 Range/Units 12:40 13:55 13:55 WBC 7.4 (4.8-10.8) X10*3/uL RBC 3.02 L D (4.60-5.80) X10*6/uL Hgb 9.6 L D (14.0-18.0) g/dl Hct 29.7 L D (42.0-52.0) % MCV 98.3 H (80.0-98.0) fL MCH 31.8 (27.0-33.0) pg MCHC 32.3 (31.0-36.0) g/dl RDW 13.8 (11.0-16.0) % Plt Count 130 L (160-400) X10*3/uL MPV 10.7 (9.4-12.4) fL Immature Gran % (Auto) 0.7 H (0.0-0.4) % Neut % (Auto) 71.5 (45-73) % Lymph % (Auto) 11.8 L (20-40) % Pratt % (Auto) 13.2 H (2-11) % Eos % (Auto) 2.4 (0-4) % Baso % (Auto) 0.4 (0-2) % Lymph # (Auto) 0.9 L (1.2-4.9) X10*3/uL Pratt # (Auto) 1.0 (0.1-1.2) X10*3/uL Eos # (Auto) 0.2 (0.0-0.4) X10*3/uL Baso # (Auto) 0.0 (0.0-0.2) X10*3/uL Abs Immat Gran (auto) 0.05 H (0.00-0.03) X10*3/uL Absolute Neuts (auto) 5.3 (2.0-8.3) x10*3/uL Absolute Nucleated RBC 0.000 (0.0-0.012) X10*3/uL Nucleated RBC % (auto) 0.0 (0.0-0.2) /100WBC PT 12.0 (10.0-13.1) SEC INR 1.0 (0.9-1.1) APTT 30.1 (26.0-36.4) SEC Sodium 145 (135-145) mmol/L Potassium 4.0 (3.3-5.1) mmol/L Chloride 98 (96-108) mmol/L Carbon Dioxide 37 H (22-29) mmol/L Anion Gap 14 (12-20) BUN 19 H (9-16) mg/dL Creatinine 1.14 (0.5-1.4) mg/dL Estim Creat Clear Calc 21.9 Estimated GFR > 60 Random Glucose 100 (60-115) mg/dL Calcium 8.4 D (8.4-10.2) mg/dL Phosphorus 4.0 (2.7-4.5) mg/dL Magnesium 1.8 (1.6-2.6) mg/dL Total Bilirubin 0.2 (0.0-1.0) mg/dL Direct Bilirubin < 0.2 (0.0-0.5) mg/dL AST 24 D (5-37) U/L ALT 16 (0-40) U/L Alkaline Phosphatase 57 D (39-117) U/L Total Protein 4.7 L D (6.5-8.0) g/dL Albumin 2.9 L D (3.5-5.0) g/dL Urine Color Urine Appearance Urine pH (5.0-9.0) Ur Specific [place] (1.005-1.025) Urine Protein (Neg-Trace) mg/dL Urine Glucose (UA) (Negative) mg/dL Urine Ketones (Negative) mg/dL Urine Blood (Negative) Urine Nitrite (Negative) Ur Leukocyte Esterase (Negative) Urine RBC (0-2) /HPF Urine WBC (0-5) /HPF Ur Squamous Epith Cells (0-2) /HPF Urine Bacteria (None Seen) Hyaline Casts (0-2) /LPF 06/14/22 06/14/22 Range/Units 13:55 19:58 WBC 7.1 (4.8-10.8) X10*3/uL RBC 2.94 L (4.60-5.80) X10*6/uL Hgb 9.4 L (14.0-18.0) g/dl Hct 29.3 L (42.0-52.0) % MCV 99.7 H (80.0-98.0) fL MCH 32.0 (27.0-33.0) pg MCHC 32.1 (31.0-36.0) g/dl RDW 13.8 (11.0-16.0) % Plt Count 111 L (160-400) X10*3/uL MPV 9.2 L (9.4-12.4) fL Immature Gran % (Auto) 0.3 (0.0-0.4) % Neut % (Auto) 66.7 (45-73) % Lymph % (Auto) 14.2 L (20-40) % Pratt % (Auto) 15.0 H (2-11) % Eos % (Auto) 3.4 (0-4) % Baso % (Auto) 0.4 (0-2) % Lymph # (Auto) 1.0 L (1.2-4.9) X10*3/uL Pratt # (Auto) 1.1 (0.1-1.2) X10*3/uL Eos # (Auto) 0.2 (0.0-0.4) X10*3/uL Baso # (Auto) 0.0 (0.0-0.2) X10*3/uL Abs Immat Gran (auto) 0.02 (0.00-0.03) X10*3/uL Absolute Neuts (auto) 4.7 (2.0-8.3) x10*3/uL Absolute Nucleated RBC 0.000 (0.0-0.012) X10*3/uL Nucleated RBC % (auto) 0.0 (0.0-0.2) /100WBC PT (10.0-13.1) SEC INR (0.9-1.1) APTT (26.0-36.4) SEC Sodium (135-145) mmol/L Potassium (3.3-5.1) mmol/L Chloride (96-108) mmol/L Carbon Dioxide (22-29) mmol/L Anion Gap (12-20) BUN (9-16) mg/dL Creatinine (0.5-1.4) mg/dL Estim Creat Clear Calc Estimated GFR Random Glucose (60-115) mg/dL Calcium (8.4-10.2) mg/dL Phosphorus (2.7-4.5) mg/dL Magnesium (1.6-2.6) mg/dL Total Bilirubin (0.0-1.0) mg/dL Direct Bilirubin (0.0-0.5) mg/dL AST (5-37) U/L ALT (0-40) U/L Alkaline Phosphatase (39-117) U/L Total Protein (6.5-8.0) g/dL Albumin (3.5-5.0) g/dL Urine Color Yellow Urine Appearance Clear Urine pH 5.5 (5.0-9.0) Ur Specific [place] 1.020 (1.005-1.025) Urine Protein 30 (1+) H (Neg-Trace) mg/dL Urine Glucose (UA) Negative (Negative) mg/dL Urine Ketones Trace (Negative) mg/dL Urine Blood Moderate (2+) H (Negative) Urine Nitrite Negative (Negative) Ur Leukocyte Esterase Moderate (2+) H (Negative) Urine RBC >20 H (0-2) /HPF Urine WBC 21-50 H (0-5) /HPF Ur Squamous Epith Cells 3-5 (0-2) /HPF Urine Bacteria None Seen (None Seen) Hyaline Casts 0-2 (0-2) /LPF <TONI Herndon - Last Filed: 06/14/22 20:52> ECG Data Attestation: I personally reviewed and interpreted this ECG as follows: <TONI Altman - Last Filed: 06/14/22 17:29> Prior ECG tracings: available for review <TONI Altman - Last Filed: 06/14/22 17:29> Interpretation: normal sinus rhythm, HR 67 bpm, question delta wave in V4, lead II, t-wave inversion in aVL (old). low voltage which is new <TONI Altman - Last Filed: 06/14/22 17:29> Discharge Plan Discharge Clinical Impression: Numbness and tingling of left hand, Acute blood loss anemia, Acute UTI <TONI Altman - Last Filed: 06/14/22 17:29> Patient Disposition: Admitted As Inpatient <TONI Altman - Last Filed: 06/14/22 17:29>
[2022-06-14 12:44] LABS: MANUAL DIFF FLAG NO
[2022-06-14 12:45] LABS: Basophils Percent Auto 0.4 % (0-2); Eosinophils Absolute Auto 0.2 X10*3/uL (0.0-0.4); Eosinophils Percent Auto 2.4 % (0-4); Hematocrit 29.7 % (42.0-52.0); Hemoglobin 9.6 g/dl (14.0-18.0); Imm Gran Abs Auto 0.05 X10*3/uL (0.00-0.03); Imm Gran Pct Auto 0.7 % (0.0-0.4); Lymphocytes Absolute Auto 0.9 X10*3/uL (1.2-4.9); Lymphocytes Percent Auto 11.8 % (20-40); Mean Corpuscular HGB Conc 32.3 g/dl (31.0-36.0); Mean Corpuscular Hemoglobin 31.8 pg (27.0-33.0); Mean Corpuscular Volume 98.3 fL (80.0-98.0); Mean Platelet Volume 10.7 fL (9.4-12.4); Monocytes Percent Auto 13.2 % (2-11); Neutrophils Absolute Auto 5.3 x10*3/uL (2.0-8.3); Neutrophils Percent Auto 71.5 % (45-73); Platelet Count 130 X10*3/uL (160-400); Red Blood Count 3.02 X10*6/uL (4.60-5.80); Red Cell Distribution Width 13.8 % (11.0-16.0); White Blood Count 7.4 X10*3/uL (4.8-10.8)
[2022-06-14 13:59] LABS: MANUAL DIFF FLAG NO
[2022-06-14 14:00] LABS: Basophils Percent Auto 0.4 % (0-2); Eosinophils Absolute Auto 0.2 X10*3/uL (0.0-0.4); Eosinophils Percent Auto 3.4 % (0-4); Hematocrit 29.3 % (42.0-52.0); Hemoglobin 9.4 g/dl (14.0-18.0); Imm Gran Abs Auto 0.02 X10*3/uL (0.00-0.03); Imm Gran Pct Auto 0.3 % (0.0-0.4); Lymphocytes Percent Auto 14.2 % (20-40); Mean Corpuscular HGB Conc 32.1 g/dl (31.0-36.0); Mean Corpuscular Volume 99.7 fL (80.0-98.0); Mean Platelet Volume 9.2 fL (9.4-12.4); Monocytes Absolute Auto 1.1 X10*3/uL (0.1-1.2); Neutrophils Absolute Auto 4.7 x10*3/uL (2.0-8.3); Neutrophils Percent Auto 66.7 % (45-73); Platelet Count 111 X10*3/uL (160-400); Red Blood Count 2.94 X10*6/uL (4.60-5.80); Red Cell Distribution Width 13.8 % (11.0-16.0); White Blood Count 7.1 X10*3/uL (4.8-10.8)
[2022-06-14 14:10] LABS: Partial Thromboplastin Time 30.1 SEC (26.0-36.4)
[2022-06-14 14:33] VITALS: BP 100/52; PULSE 67; RESP 17; O2SAT 100
--- NOTE | 2022-06-14 14:36 | PC.NURSE ---
Awaiting labs from [facility] at this time. PT resting quietly in NAD
[2022-06-14 14:38] LABS: Magnesium 1.8 mg/dL (1.6-2.6)
[2022-06-14 14:41] LABS: Alanine Aminotransferase 16 U/L (0-40); Albumin Level 2.9 g/dL (3.5-5.0); Alkaline Phosphatase 57 U/L (39-117); Anion Gap 14 (12-20); Aspartate Amino Transferase 24 U/L (5-37); Blood Urea Nitrogen 19 mg/dL (9-16); Calcium 8.4 mg/dL (8.4-10.2); Carbon Dioxide 37 mmol/L (22-29); Chloride 98 mmol/L (96-108); Creatinine Clr Calc Pharmacy 21.9; Estimated Glomerular Filt Rate > 60; Glucose Random 100 mg/dL (60-115); Sodium 145 mmol/L (135-145); Total Protein 4.7 g/dL (6.5-8.0)
[2022-06-14 14:53] LABS: Bilirubin Direct < 0.2 mg/dL (0.0-0.5); Bilirubin Total 0.2 mg/dL (0.0-1.0)
[2022-06-14 16:14] VITALS: BP 101/45; PULSE 68; RESP 20; TEMP 36.6; O2SAT 96
--- NOTE | 2022-06-14 16:47 | PC.NURSE ---
MRI screening form completed. Pt resting comfortably in the bed awaiting pick-up from MRI.
[2022-06-14 19:27] VITALS: BP 113/48; PULSE 70; RESP 15; TEMP 36.9; O2SAT 97
[2022-06-14 20:09] LABS: Appearance Urine Clear; Color Urine Yellow; Glucose Urine UA Negative (Negative); Leukocyte Esterase Urine Moderate (2+) (Negative); Nitrite Urine Negative (Negative); PH 5.5 (5.0-9.0); UMIC TRIGGER UACC YES; Urine Blood Moderate (2+) (Negative); Urine Ketones Trace mg/dL (Negative); Urine Protein 30 (1+) mg/dL (Neg-Trace)
[2022-06-14 20:19] LABS: Bacteria Urine None Seen (None Seen); Hyaline Casts Urine 0-2 /LPF (0-2); RBC Urine >20 /HPF (0-2); UACC Culture Trigger YES; WBC Urine 21-50 /HPF (0-5)
[2022-06-14] MEDS: cefTRIAXone sodium 1 GM in 0.9 % Sodium Chloride 50 ML IV (20:35)
--- NOTE | 2022-06-14 20:36 | PC.NURSE ---
Per Mya, provider blood cultures and lactic acid not needed prior to IV abt administration.
--- NOTE | 2022-06-14 21:13 | P.HPHOSP_ITS ---
History of Present Illness Date of Service: 06/14/22 Chief Complaint: palpitations This is a 76-year-old male with past medical history of CAD, chronic constipation, COPD on 2.5 L at baseline, HTN, HLD, hyperthyroidism, GERD, history of UTI, history of urinary retention and BPH with chronic Lamas, WPW presents to the hospital with complaints of palpitations, as well as left hand numbness. With recent visit to the ER on 06/13 for a blocked catheter and hematuria who presents to the ER from home via EMS after his visiting nurse found him to have an irregular heart beat. Patient reports that he had palpitations, and also felt numbness in his left hand. He reports that on leaving the hospital and 06/13 some bleeding from the penis in that up and feels that is at is not bleeding anymore. He did have a lot of hematuria in the Lamas catheter on arrival on 07/01 but has not noticed any bleed in his catheter bag. He reports no chest pain, no shortness of breath more than usual, no cough or sputum production, no abdominal pain nausea or vomiting, no diarrhea, has chronic constipation, no lower extremity edema. On arrival to the ED patient hemodynamically stable with no significant abnormal vitals Labs are significant E WBC count of 7 point hemoglobin of 9.6, hematocrit 29.7. Hemoglobin dropped from 12.4 on 06/12 to 9.6 today. Labs otherwise unremarkable, urine does show leukocyte Estrace and large amount of WBC. 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) Family History (Updated 06/15/22 @ 07:29 by Sean Rodriguez MD) Other No family history of coronary artery disease Surgical History (Updated 06/15/22 @ 07:30 by Sean Rodriguez MD) No pertinent past surgical history Social History Household Members: Children and Other Household Members Other:: Caregiver, son and daughter Housing: House Alcohol intake: never Patient Tobacco Use Status: Former Tobacco user Use of substances other than those prescribed or required for medical reasons: No Advance Directives: No Advance Directives Information Provided: Yes service: Yes Current occupational status: disabled Meds Allergies Allergy/AdvReac Type Severity Reaction Status Date / Time No Known Allergies Allergy Unverified 05/29/20 16:52 [No Known Allergies*] Home Medications Medication Instructions Recorded Confirmed Last Taken Type Lactobacillus acidophilus 1 tab PO DAILY 05/21/22 06/14/22 06/14/22 History acyclovir 200 mg capsule 400 mg PO BID 05/21/22 06/14/22 06/14/22 History albuterol sulfate 90 mcg/actuation 2 puff inhalation QID PRN 05/21/22 06/14/22 06/14/22 History aerosol inhaler (ProAir HFA) Shortness Of Breath alendronate 70 mg tablet (Fosamax) 70 mg PO PEREYRA 05/21/22 06/14/22 06/14/22 History ascorbic acid (vitamin C) 500 mg 500 mg PO BID 05/21/22 06/14/22 06/14/22 History tablet (Vitamin C) aspirin 81 mg chewable tablet 81 mg PO DAILY 05/21/22 06/14/22 06/14/22 History budesonide 0.25 mg/2 mL suspension 0.25 mg inhalation BID 05/21/22 06/14/22 06/14/22 History for nebulization bupropion HCl 75 mg tablet 75 mg PO DAILY 05/21/22 06/14/22 06/14/22 History calcium carbonate 500 mg calcium 1,000 mg PO DAILY 05/21/22 06/14/22 06/14/22 History (1,250 mg) tablet cholecalciferol (vitamin D3) 25 25 mcg PO DAILY 05/21/22 06/14/22 06/14/22 History mcg (1,000 unit) tablet (Vitamin D3) finasteride 5 mg tablet (Proscar) 5 mg PO DAILY 05/21/22 06/14/22 06/14/22 History furosemide 20 mg tablet (Lasix) 20 mg PO SUTUTHSA 05/21/22 06/14/22 06/13/22 History furosemide 20 mg tablet (Lasix) 40 mg PO MOWEFR 05/21/22 06/14/22 06/14/22 History guaifenesin 200 mg tablet 400 mg PO BID PRN Cough 05/21/22 06/14/22 Unknown History ibuprofen 400 mg tablet 400 mg PO Q8H PRN Pain, Mild 05/21/22 06/14/22 Unknown History lidocaine 5 % topical patch 1 patch topical DAILY 05/21/22 06/14/22 06/14/22 Hi story (Lidoderm) loratadine 10 mg tablet (Claritin) 10 mg PO DAILY PRN Allergy Symptoms 05/21/22 06/14/22 Unknown History lorazepam 0.5 mg tablet 0.5 mg PO TID PRN Anxiety 05/21/22 06/14/22 Unknown History losartan 25 mg tablet 25 mg PO DAILY 05/21/22 06/14/22 06/14/22 History methimazole 5 mg tablet 5 mg PO MOWEFR 05/21/22 06/14/22 06/14/22 History metoprolol succinate 50 mg 50 mg PO DAILY 05/21/22 06/14/22 06/14/22 History tablet,extended release 24 hr nitroglycerin 0.4 mg sublingual 0.4 mg sublingual Q5M PRN Chest 05/21/22 06/14/22 Unknown History tablet Pain omeprazole 20 mg capsule,delayed 20 mg PO DAILY 05/21/22 06/14/22 06/14/22 History release quetiapine 100 mg tablet 100 mg PO BEDTIME PRN Sleep 05/21/22 06/14/22 Unknown History rosuvastatin 40 mg tablet (Crestor) 20 mg PO DAILY 05/21/22 06/14/22 06/14/22 History sennosides 8.6 mg tablet (senna) 8.6 mg PO BID PRN Constipation 05/21/22 06/14/22 Unknown History tamsulosin 0.4 mg capsule (Flomax) 0.4 mg PO DAILY@1700 05/21/22 06/14/22 06/14/22 History tiotropium 2.5 mcg-olodaterol 2.5 2 puff inhalation DAILY 05/21/22 06/14/22 06/14/22 History mcg/actuation mist for inhalation tramadol 50 mg tablet 50 mg PO DAILY PRN Pain 05/21/22 06/14/22 Unknown History zaleplon 10 mg capsule 10 - 20 mg PO BEDTIME PRN Sleep 05/21/22 06/14/22 06/14/22 History carboxymethylcellulose sodium 0.5 1 drp ophthalmic (eye) QID PRN Dry 06/14/22 06/14/22 06/14/22 History % eye drops Eyes quetiapine 100 mg tablet 100 mg PO BEDTIME 06/14/22 06/14/22 06/13/22 History terbinafine HCl 1 % topical cream 1 appl topical BID 06/14/22 06/14/22 06/14/22 History white petrolatum-mineral oil 1 appl topical DAILY PRN Dry Skin 06/14/22 06/14/22 06/14/22 History topical cream Physical Exam Vital Signs and Narrative: Vital Signs: Last Vital Signs Temp 98.5 F 06/14/22 19:27 Pulse 70 06/14/22 19:27 Resp 15 06/14/22 19:27 BP 113/48 L 06/14/22 19:27 Pulse Ox 97 06/14/22 19:27 O2 Del Method 06/14/22 19:27 O2 Flow Rate 2 06/14/22 19:27 Oxygen Flow Rate 2 06/14/22 11:46 BMI result Body Mass Index 9.4 Const: General: cooperative and no acute distress Orientation/consciousness: patient oriented x3 Eyes: General: appearance normal, both eyes and all related structures Resp: Effort & Inspection: normal respiratory effort Auscultation: clear to auscultation bilaterally Cardio: Rate: regular rate Rhythm: regular rhythm GI: Palpation (GI): Soft to palpation Auscultation: normal bowel sounds : Other: Blood around the penis at the entry of the Lamas catheter Skin: General skin exam: no rashes or lesions noted Neuro: General: patient oriented x3 Cognition (Neuro): normal cognition Extrem: General: Yes normal to inspection and Yes no pedal edema Results Labs CBC and Chem 7: 06/14/22 13:55 06/14/22 13:55 Labs: Laboratory Results - last 24 hr 06/14/22 06/14/22 06/14/22 12:40 13:55 13:55 MCV 98.3 H MCH 31.8 MCHC 32.3 RDW 13.8 Plt Count 130 L MPV 10.7 Immature Gran % (Auto) 0.7 H Neut % (Auto) 71.5 Lymph % (Auto) 11.8 L [place] % (Auto) 13.2 H Eos % (Auto) 2.4 Baso % (Auto) 0.4 Lymph # (Auto) 0.9 L [place] # (Auto) 1.0 Eos # (Auto) 0.2 Baso # (Auto) 0.0 Abs Immat Gran (auto) 0.05 H Absolute Neuts (auto) 5.3 Absolute Nucleated RBC 0.000 Nucleated RBC % (auto) 0.0 PT 12.0 INR 1.0 APTT 30.1 Anion Gap 14 Estim Creat Clear Calc 21.9 Estimated GFR > 60 Random Glucose 100 Calcium 8.4 D Phosphorus 4.0 Magnesium 1.8 Total Bilirubin 0.2 Direct Bilirubin < 0.2 AST 24 D ALT 16 Alkaline Phosphatase 57 D Total Protein 4.7 L D Albumin 2.9 L D Urine Color Urine Appearance Urine pH Ur Specific [place] Urine Protein Urine Glucose (UA) Urine Ketones Urine Blood Urine Nitrite Ur Leukocyte Esterase Urine RBC Urine WBC Ur Squamous Epith Cells Urine Bacteria Hyaline Casts 06/14/22 06/14/22 13:55 19:58 MCV 99.7 H MCH 32.0 MCHC 32.1 RDW 13.8 Plt Count 111 L MPV 9.2 L Immature Gran % (Auto) 0.3 Neut % (Auto) 66.7 Lymph % (Auto) 14.2 L [place] % (Auto) 15.0 H Eos % (Auto) 3.4 Baso % (Auto) 0.4 Lymph # (Auto) 1.0 L [place] # (Auto) 1.1 Eos # (Auto) 0.2 Baso # (Auto) 0.0 Abs Immat Gran (auto) 0.02 Absolute Neuts (auto) 4.7 Absolute Nucleated RBC 0.000 Nucleated RBC % (auto) 0.0 PT INR APTT Anion Gap Estim Creat Clear Calc Estimated GFR Random Glucose Calcium Phosphorus Magnesium Total Bilirubin Direct Bilirubin AST ALT Alkaline Phosphatase Total Protein Albumin Urine Color Yellow Urine Appearance Clear Urine pH 5.5 Ur Specific [place] 1.020 Urine Protein 30 (1+) H Urine Glucose (UA) Negative Urine Ketones Trace Urine Blood Moderate (2+) H Urine Nitrite Negative Ur Leukocyte Esterase Moderate (2+) H Urine RBC >20 H Urine WBC 21-50 H Ur Squamous Epith Cells 3-5 Urine Bacteria None Seen Hyaline Casts 0-2 Imaging Radiologist's Impressions: Impressions Cervical Spine CT 06/14/22 13:10 IMPRESSION: 1. No acute bony abnormality or prevertebral soft tissue swelling. 2. Prior anterior cervical fusion C5-C6. 3. Degenerative disc changes C6-C7. Head CT 06/14/22 13:10 IMPRESSION: No acute intracranial abnormality. Brain MRI 06/14/22 17:40 IMPRESSION: No acute infarct or other acute intracranial abnormality Assessment and Plan (1) Numbness and tingling of left hand: Status: Acute (2) Acute blood loss anemia: Status: Acute (3) Hematuria: Status: Acute (4) Acute UTI: Status: Acute Plan This is a 76-year-old male with past medical history as mentioned presents to the hospital with palpitations, left hand numbness, and found to have anemia # numbness and tingling of left hand - MRI negative - possibly secondary to anemia - resolved - monitor # acute blood loss anemia - likely secondary to hematuria - urine positive for blood and RBC - according to the patient he had a traumatic Lamas catheter insertion on 06/13 with hematuria - will consult Urology # hematuria - likely secondary to Lamas insertion - urology consulted # acute UTI - will treat with IV antibiotics - follow cultures # palpitations - likely secondary to acute anemia - no EKG changes - underlying WPW - monitor on telemetry # hypertension -BP stable - will hold antihypertensive this patient may have further bleeding # CAD - stable with no chest pain - continue home meds DVT prophylaxis: SCDs Quality Stroke Does the patient have a stroke diagnosis?: No VTE Prior VTE?: No VTE Risk Level:: Medical - low VTE Device Contraindication: N/A - Device Ordered VTE Drug Contraindication: Treatment Not Indicated
--- NOTE | 2022-06-14 21:57 | PHA.MEDREC ---
Pharmacy Consult ? Medication Reconciliation Pharmacy has completed the medication reconciliation. SPOKE WITH PT WHO ALSO [facility].
--- NOTE | 2022-06-14 22:51 | PC.NURSE ---
Nurse to nurse reort given to overflow RN. Patient to be taken to overflow unit bed 2 in a stretcher be on telemonitor.
[2022-06-14 22:53] VITALS: BP 103/51; PULSE 80; RESP 18; TEMP 36.7; O2SAT 97
[2022-06-15] VITALS (8 sets, daily range): BP systolic 92–122; BP diastolic 44–58; PULSE 76–103; RESP 15–21; TEMP 36.8–37.1; O2SAT 93–97
[2022-06-15] MEDS: QUEtiapine Fumarate 100 MG TABLET PO ×2 (01:33→21:03)
--- NOTE | 2022-06-15 01:54 | PC.NURSE ---
Assumed care of patient at this time ,patient is asleep .
--- NOTE | 2022-06-15 05:43 | PC.NURSE ---
PATIENT WAS INCONTINENT OF SMALL AMOUNT OF DRY STOOL ,VASILIY CARE GIVEN WARM BLANKET APPLY .
--- NOTE | 2022-06-15 06:47 | PC.NURSE ---
Administered sleeping meds at HS. Patient resting comfortable. Will continue to monitor.
[2022-06-15] MEDS: Lactated Ringers 1,000 ML 999 ML IV (07:36)
[2022-06-15 07:41] LABS: MANUAL DIFF FLAG NO
[2022-06-15 07:49] LABS: Basophils Percent Auto 0.4 % (0-2); Eosinophils Absolute Auto 0.4 X10*3/uL (0.0-0.4); Eosinophils Percent Auto 5.3 % (0-4); Hematocrit 29.2 % (42.0-52.0); Hemoglobin 9.3 g/dl (14.0-18.0); Imm Gran Abs Auto 0.04 X10*3/uL (0.00-0.03); Imm Gran Pct Auto 0.6 % (0.0-0.4); Lymphocytes Absolute Auto 1.2 X10*3/uL (1.2-4.9); Lymphocytes Percent Auto 16.5 % (20-40); Mean Corpuscular HGB Conc 31.8 g/dl (31.0-36.0); Mean Corpuscular Hemoglobin 31.3 pg (27.0-33.0); Mean Corpuscular Volume 98.3 fL (80.0-98.0); Mean Platelet Volume 10.2 fL (9.4-12.4); Monocytes Absolute Auto 1.1 X10*3/uL (0.1-1.2); Monocytes Percent Auto 15.7 % (2-11); Neutrophils Absolute Auto 4.4 x10*3/uL (2.0-8.3); Neutrophils Percent Auto 61.5 % (45-73); Platelet Count 137 X10*3/uL (160-400); Red Blood Count 2.97 X10*6/uL (4.60-5.80); Red Cell Distribution Width 13.8 % (11.0-16.0); White Blood Count 7.2 X10*3/uL (4.8-10.8)
[2022-06-15 08:12] LABS: Anion Gap 13 (12-20); Blood Urea Nitrogen 14 mg/dL (9-16); Calcium 7.9 mg/dL (8.4-10.2); Carbon Dioxide 37 mmol/L (22-29); Chloride 96 mmol/L (96-108); Creatinine Clr Calc Pharmacy 30.9; Estimated Glomerular Filt Rate > 60; Glucose Random 92 mg/dL (60-115); Sodium 142 mmol/L (135-145)
[2022-06-15] MEDS: Lidocaine 4 % Patch ADH..PATCH 1 PATCH TRANSDERMA (09:27)
[2022-06-15] MEDS: Acyclovir 200 MG CAPSULE 400 MG PO ×2 (09:28→21:32)
[2022-06-15] MEDS: Metoprolol Succinate ER 50 MG TAB.ER.24H PO (09:28)
[2022-06-15] MEDS: Clotrimazole 1 % Cream 15 GM TUBE 1 APPL TOPICAL ×2 (09:28→21:03)
[2022-06-15] MEDS: Omeprazole 20 MG CAPSULE.DR PO (09:29)
[2022-06-15] MEDS: Ascorbic Acid 500 MG TABLET PO ×2 (09:29→21:03)
[2022-06-15] MEDS: buPROPion HCL 75 MG TABLET PO (09:29)
[2022-06-15] MEDS: Aspirin 81 MG TAB.CHEW PO (09:29)
[2022-06-15] MEDS: Atorvastatin Calcium 80 MG TABLET PO (09:30)
[2022-06-15] MEDS: Furosemide 20 MG TABLET PO (09:30)
[2022-06-15] MEDS: Cholecalciferol (Vitamin D3) 25 MCG TABLET PO (09:30)
[2022-06-15] MEDS: Finasteride 5 MG TABLET PO (09:31)
[2022-06-15] MEDS: Acetaminophen 325 MG TABLET 650 MG PO (09:36)
[2022-06-15 09:43] LABS: COVID-19 Test Negative (Negative); IDNOW Serial# 9DD0AD1C
--- NOTE | 2022-06-15 10:02 | PC.NURSE ---
pt medicated according to NOV @927. metoprolol given. @ 0935 HOLD order placed for metoprolol. Dr. Joseph notified. instructed to continue to monitor BP.
--- NOTE | 2022-06-15 12:10 | P.CNUR_ITS ---
History of Present Illness Consult details Consult date: 06/14/22 Narrative: 76 yo male with history of O2 dependent COPD Multiple Medical problems including, CAD s/p stents, HTN, HLD, hyperthyroidism, GERD, fecal impaction, hx UTI, urinary retention & BPH with chronic Rodas sent to the ER on 06/14 for a blocked catheter and hematuria. Recent admission May, for UTI was seen by Dr. Santana, urology at that time and was to be seen in the office today for outpatient cystoscopy. Urine currently rosalie/yellow draining well. Review of Systems Constitutional: Constitutional: Reports no additional constitutional complaints, Denies chills, Denies fever(s) and Denies night sweats Eyes: Eyes: Reports no additional eye complaints, Denies blurry vision, Denies change in vision, Denies diplopia, Denies eye discharge and Denies eye pain Cardiovascular: Cardiovascular: Reports no additional cardiovascular complaints, Denies chest pain, Denies lightheadedness, Denies Loss of Consciousness and Denies dyspnea Respiratory: Respiratory: Reports no additional respiratory complaints and Denies dyspnea Gastrointestinal: Gastrointestinal: Reports no additional gastrointestinal complaints, Reports abdominal pain, Denies melena, Denies hematochezia, Denies change in bowel habits and Denies change in stool character Genitourinary: Genitourinary: Reports hematuria Musculoskeletal: Musculoskeletal: Reports no additional musculoskeletal complaints Psychiatric: Psychiatric: Reports no additional psychiatric complaints Endocrine: Endocrine: Reports no additional endocrine complaints Hematologic/Lymphatic: Hematologic/Lymphatic: Reports no additional hematologic/lymphatic complaints Allergic/Immunologic: Allergic/Immunologic: Reports no additional allergic/immunologic complaints [facility] Past Medical History Medical History (Updated 06/15/22 @ 12:15 by Ramana Allen MD) CAD (coronary artery disease) Chronic indwelling Rodas catheter Constipation COPD (chronic obstructive pulmonary disease) GERD (gastroesophageal reflux disease) Hematuria History of fecal impaction HLD (hyperlipidemia) Hypertension Hyperthyroidism 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) Family History Family History (Updated 06/15/22 @ 07:29 by Sean Rodriguez MD) Other No family history of coronary artery disease Surgical History Surgical History (Updated 06/15/22 @ 07:30 by Sean Rodriguez MD) No pertinent past surgical history Social History Social History Household Members: Children and Other Household Members Other:: Caregiver, son and daughter Housing: House Alcohol intake: never Patient Tobacco Use Status: Former Tobacco user Use of substances other than those prescribed or required for medical reasons: No Advance Directives: No Advance Directives Information Provided: Yes service: Yes Current occupational status: disabled Meds Allergies Allergy/AdvReac Type Severity Reaction Status Date / Time No Known Allergies Allergy Unverified 05/29/20 16:52 [No Known Allergies*] Active Medications: Current Medications Acetaminophen (Acetaminophen 325 Mg Tablet) 650 mg PO Q6H PRN PRN Reason: Pain, Mild (Pain Scale 1-3) Last Admin: 06/15/22 09:36 Dose: 650 mg Acyclovir (Acyclovir 200 Mg Capsule) 400 mg PO BID [facility] Last Admin: 06/15/22 09:28 Dose: 400 mg Albuterol Sulfate (Albuterol Sulfate 90 Mcg 8 Gm Inhaler) 2 puff INHALE QID PRN PRN Reason: Shortness Of Breath Artificial Tears (Artificial Tears 15 Ml Drops) 1 drop EYE-BOTH QID PRN PRN Reason: Dry Eyes Ascorbic Acid (Ascorbic Acid 500 Mg Tablet) 500 mg PO BID [facility] Last Admin: 06/15/22 09:29 Dose: 500 mg Aspirin (Aspirin 81 Mg Tab.Chew) 81 mg PO DAILY [facility] Last Admin: 06/15/22 09:29 Dose: 81 mg Atorvastatin Calcium (Atorvastatin Calcium 80 Mg Tablet) 80 mg PO DAILY [facility] Last Admin: 06/15/22 09:30 Dose: 80 mg Bupropion HCl (Bupropion Hcl 75 Mg Tablet) 75 mg PO DAILY [facility] Last Admin: 06/15/22 09:29 Dose: 75 mg Calcium Carbonate (Calcium Carbonate 500 Mg Tablet) 1,000 mg PO DAILY [facility] Last Admin: 06/15/22 09:29 Dose: 1,000 mg Clotrimazole (Clotrimazole 1 % Cream 15 Gm Tube) 1 appl TOPICAL BID [facility] Last Admin: 06/15/22 09:28 Dose: 1 appl Docusate Sodium (Docusate Sodium 100 Mg Capsule) 100 mg PO DAILY PRN PRN Reason: Constipation Docusate Sodium (Docusate Sodium 100 Mg Capsule) 100 mg PO BID PRN PRN Reason: soften stool Finasteride (Finasteride 5 Mg Tablet) 5 mg PO DAILY [facility] Last Admin: 06/15/22 09:31 Dose: 5 mg Furosemide (Furosemide 20 Mg Tablet) 20 mg PO SuTuThSa@0900 [facility]; Protocol Last Admin: 06/15/22 09:30 Dose: 20 mg Furosemide (Furosemide 40 Mg Tablet) 40 mg PO MoWeFr@0900 [facility]; Protocol Guaifenesin (Guaifenesin 200 Mg/10 Ml 10 Ml Liquid) 20 ml PO Q4H PRN PRN Reason: Cough Ceftriaxone Sodium 1 gm/ (Sodium Chloride) 50 mls @ 100 mls/hr IV Q24H [facility] Lidocaine (Lidocaine 4 % Patch Adh..Patch) 1 patch TRANSDERMA DAILY [facility] Last Admin: 06/15/22 09:27 Dose: 1 patch Loratadine (Loratadine 10 Mg Tablet) 10 mg PO DAILY PRN PRN Reason: Allergy Symptoms Lorazepam (Lorazepam 0.5 Mg Tablet) 0.5 mg PO TID PRN PRN Reason: Anxiety Methimazole (Methimazole 5 Mg Tablet) 5 mg PO MoWeFr@0900 [facility] Metoprolol Succinate (Metoprolol Succinate Er 50 Mg Tab.Er.24h) 50 mg PO DAILY [facility]; Protocol Last Admin: 06/15/22 09:28 Dose: 50 mg Multi-Ingred Cream/Lotion/Oil/Oint (Mineral Oil/Petrolatum,White 106 Gm Tube) 1 appl TOPICAL DAILY PRN; Protocol PRN Reason: Dry Skin Nitroglycerin (Nitroglycerin 0.4 Mg Tab.Subl) 0.4 mg SUBLINGUAL Q5M PRN PRN Reason: Chest Pain Non-Formulary Medication (Budesonide) 0.25 mg INHALE BID [facility] Non-Formulary Medication (Tiotropium-Olodaterol) 2 puff INHALE DAILY [facility] Omeprazole (Omeprazole 20 Mg Capsule.Dr) 20 mg PO DAILY [facility] Last Admin: 06/15/22 09:29 Dose: 20 mg Ondansetron HCl (Ondansetron Hcl 4 Mg/2 Ml Vial) 4 mg IVPUSH Q8H PRN PRN Reason: Nausea and Vomiting Polyethylene Glycol (Polyethylene Glycol 3350 17 Gm Powd.Pack) 17 gm PO DAILY PRN PRN Reason: Constipation Quetiapine Fumarate (Quetiapine Fumarate 100 Mg Tablet) 100 mg PO BEDTIME PRN PRN Reason: Sleep Quetiapine Fumarate (Quetiapine Fumarate 100 Mg Tablet) 100 mg PO BEDTIME [facility] Last Admin: 06/15/22 01:33 Dose: 100 mg Senna (Sennosides 8.6 Mg Tablet) 8.6 mg PO BID PRN PRN Reason: Constipation Tamsulosin HCl (Tamsulosin Hcl 0.4 Mg Capsule) 0.4 mg PO DAILY@1700 [facility] Temazepam (Temazepam 15 Mg Capsule) 15 mg PO BEDTIME PRN PRN Reason: Sleep Tramadol HCl (Tramadol Hcl 50 Mg Tablet) 50 mg PO DAILY PRN PRN Reason: Pain, Severe (Pain Scale 7-10) Vitamin D (Cholecalciferol (Vitamin D3) 25 Mcg Tablet) 25 mcg PO DAILY [facility] Last Admin: 06/15/22 09:30 Dose: 25 mcg Home Medications Medication Instructions Recorded Confirmed Last Taken Type Lactobacillus acidophilus 1 tab PO DAILY 05/21/22 06/14/22 06/14/22 History acyclovir 200 mg capsule 400 mg PO BID 05/21/22 06/14/22 06/14/22 History albuterol sulfate 90 mcg/actuation 2 puff inhalation QID PRN 05/21/22 06/14/22 06/14/22 History aerosol inhaler (ProAir HFA) Shortness Of Breath alendronate 70 mg tablet (Fosamax) 70 mg PO PEREYRA 05/21/22 06/14/22 06/14/22 History ascorbic acid (vitamin C) 500 mg 500 mg PO BID 05/21/22 06/14/22 06/14/22 History tablet (Vitamin C) aspirin 81 mg chewable tablet 81 mg PO DAILY 05/21/22 06/14/22 06/14/22 History budesonide 0.25 mg/2 mL suspension 0.25 mg inhalation BID 05/21/22 06/14/22 06/14/22 History for nebulization bupropion HCl 75 mg tablet 75 mg PO DAILY 05/21/22 06/14/22 06/14/22 History calcium carbonate 500 mg calcium 1,000 mg PO DAILY 05/21/22 06/14/22 06/14/22 History (1,250 mg) tablet cholecalciferol (vitamin D3) 25 25 mcg PO DAILY 05/21/22 06/14/22 06/14/22 History mcg (1,000 unit) tablet (Vitamin D3) finasteride 5 mg tablet (Proscar) 5 mg PO DAILY 05/21/22 06/14/22 06/14/22 History furosemide 20 mg tablet (Lasix) 20 mg PO SUTUTHSA 05/21/22 06/14/22 06/13/22 History furosemide 20 mg tablet (Lasix) 40 mg PO MOWEFR 05/21/22 06/14/22 06/14/22 History guaifenesin 200 mg tablet 400 mg PO BID PRN Cough 05/21/22 06/14/22 Unknown History ibuprofen 400 mg tablet 400 mg PO Q8H PRN Pain, Mild 05/21/22 06/14/22 Unknown History lidocaine 5 % topical patch 1 patch topical DAILY 05/21/22 06/14/22 06/14/22 History (Lidoderm) loratadine 10 mg tablet (Claritin) 10 mg PO DAILY PRN Allergy Symptoms 05/21/22 06/14/22 Unknown History lorazepam 0.5 mg tablet 0.5 mg PO TID PRN Anxiety 05/21/22 06/14/22 Unknown History losartan 25 mg tablet 25 mg PO DAILY 05/21/22 06/14/22 06/14/22 History methimazole 5 mg tablet 5 mg PO FR 05/21/22 06/14/22 06/14/22 History metoprolol succinate 50 mg 50 mg PO DAILY 05/21/22 06/14/22 06/14/22 History tablet,extended release 24 hr nitroglycerin 0.4 mg sublingual 0.4 mg sublingual Q5M PRN Chest 05/21/22 06/14/22 Unknown History tablet Pain omeprazole 20 mg capsule,delayed 20 mg PO DAILY 05/21/22 06/14/22 06/14/22 History release quetiapine 100 mg tablet 100 mg PO BEDTIME PRN Sleep 05/21/22 06/14/22 Unknown History rosuvastatin 40 mg tablet (Crestor) 20 mg PO DAILY 05/21/22 06/14/22 06/14/22 History sennosides 8.6 mg tablet (senna) 8.6 mg PO BID PRN Constipation 05/21/22 06/14/22 Unknown History tamsulosin 0.4 mg capsule (Flomax) 0.4 mg PO DAILY@1700 05/21/22 06/14/22 06/14/22 History tiotropium 2.5 mcg-olodaterol 2.5 2 puff inhalation DAILY 05/21/22 06/14/22 06/14/22 History mcg/actuation mist for inhalation tramadol 50 mg tablet 50 mg PO DAILY PRN Pain 05/21/22 06/14/22 Unknown History zaleplon 10 mg capsule 10 - 20 mg PO BEDTIME PRN Sleep 05/21/22 06/14/22 06/14/22 History carboxymethylcellulose sodium 0.5 1 drp ophthalmic (eye) QID PRN Dry 06/14/22 06/14/22 06/14/22 History % eye drops Eyes quetiapine 100 mg tablet 100 mg PO BEDTIME 06/14/22 06/14/22 06/13/22 History terbinafine HCl 1 % topical cream 1 appl topical BID 06/14/22 06/14/22 06/14/22 History white petrolatum-mineral oil 1 appl topical DAILY PRN Dry Skin 06/14/22 06/14/22 06/14/22 History topical cream Physical Exam Vital Signs: Vital Signs: Last Vital Signs Temp 98.7 F 06/15/22 11:35 Pulse 88 06/15/22 11:35 Resp 21 H 06/15/22 11:35 BP 105/44 L 06/15/22 11:35 Pulse Ox 95 06/15/22 11:35 O2 Del Method 06/15/22 08:18 O2 Flow Rate 2.5 06/15/22 11:35 Oxygen Flow Rate 2 06/14/22 11:46 BMI result Body Mass Index 9.4 Const: General: comfortable and no acute distress Orientation/consciousness: patient oriented x3 HEENT: Head: Yes normocephalic and Yes atraumatic Eyes: Conjunctivae: conjunctivae normal Neck: Neck: Yes trachea midline Chest: Chest palpation & inspection: normal inspection of the chest Resp: Effort & Inspection: normal respiratory effort Cardio: Rate: regular rate GI: Palpation (GI): Soft to palpation : Other: rodas in place draining clear yellow urine General: No CVA tenderness Penis: uncircumcised Scrotum: scrotum normal Back/Spine/Pelvis: Back: No CVA tenderness Skin: General skin exam: no rashes or lesions noted Neuro: Other: good social human services assistants/hand strength bilaterally General: patient oriented x3 Extrem: General: No edema Psych: Appearance: grossly normal Results Labs Result diagrams: 06/15/22 06:55 06/15/22 06:55 Labs: Abnormal lab results 06/14/22 06/14/22 06/14/22 Range/Units 12:40 13:55 13:55 RBC 3.02 L D 2.94 L (4.60-5.80) X10*6/uL Hgb 9.6 L D 9.4 L (14.0-18.0) g/dl Hct 29.7 L D 29.3 L (42.0-52.0) % MCV 98.3 H 99.7 H (80.0-98.0) fL Plt Count 130 L 111 L (160-400) X10*3/uL MPV 9.2 L (9.4-12.4) fL Immature Gran % (Auto) 0.7 H (0.0-0.4) % Lymph % (Auto) 11.8 L 14.2 L (20-40) % [place] % (Auto) 13.2 H 15.0 H (2-11) % Eos % (Auto) (0-4) % Lymph # (Auto) 0.9 L 1.0 L (1.2-4.9) X10*3/uL Abs Immat Gran (auto) 0.05 H (0.00-0.03) X10*3/uL Carbon Dioxide 37 H (22-29) mmol/L BUN 19 H (9-16) mg/dL Calcium (8.4-10.2) mg/dL Total Protein 4.7 L D (6.5-8.0) g/dL Albumin 2.9 L D (3.5-5.0) g/dL Urine Protein (Neg-Trace) mg/dL Urine Blood (Negative) Ur Leukocyte Esterase (Negative) Urine RBC (0-2) /HPF Urine WBC (0-5) /HPF 06/14/22 06/15/22 06/15/22 Range/Units 19:58 06:55 06:55 RBC 2.97 L (4.60-5.80) X10*6/uL Hgb 9.3 L (14.0-18.0) g/dl Hct 29.2 L (42.0-52.0) % MCV 98.3 H (80.0-98.0) fL Plt Count 137 L (160-400) X10*3/uL MPV (9.4-12.4) fL Immature Gran % (Auto) 0.6 H (0.0-0.4) % Lymph % (Auto) 16.5 L (20-40) % [place] % (Auto) 15.7 H (2-11) % Eos % (Auto) 5.3 H (0-4) % Lymph # (Auto) (1.2-4.9) X10*3/uL Abs Immat Gran (auto) 0.04 H (0.00-0.03) X10*3/uL Carbon Dioxide 37 H (22-29) mmol/L BUN (9-16) mg/dL Calcium 7.9 L (8.4-10.2) mg/dL Total Protein (6.5-8.0) g/dL Albumin (3.5-5.0) g/dL Urine Protein 30 (1+) H (Neg-Trace) mg/dL Urine Blood Moderate (2+) H (Negative) Ur Leukocyte Esterase Moderate (2+) H (Negative) Urine RBC >20 H (0-2) /HPF Urine WBC 21-50 H (0-5) /HPF Short CBC 06/14/22 06/14/22 06/15/22 Range/Units 12:40 13:55 06:55 WBC 7.4 7.1 7.2 (4.8-10.8) X10*3/uL Hgb 9.6 L D 9.4 L 9.3 L (14.0-18.0) g/dl Hct 29.7 L D 29.3 L 29.2 L (42.0-52.0) % Plt Count 130 L 111 L 137 L (160-400) X10*3/uL BMP 06/14/22 06/15/22 13:55 06:55 Sodium 145 142 Potassium 4.0 4.0 Chloride 98 96 Carbon Dioxide 37 H 37 H BUN 19 H 14 Creatinine 1.14 0.81 Calcium 8.4 D 7.9 L Liver Function 06/14/22 Range/Units 13:55 Total Bilirubin 0.2 (0.0-1.0) mg/dL Direct Bilirubin < 0.2 (0.0-0.5) mg/dL AST 24 D (5-37) U/L ALT 16 (0-40) U/L Alkaline Phosphatase 57 D (39-117) U/L Albumin 2.9 L D (3.5-5.0) g/dL Urine 06/14/22 Range/Units 19:58 Urine Color Yellow Urine Appearance Clear Urine pH 5.5 (5.0-9.0) Ur Specific [place] 1.020 (1.005-1.025) Urine Protein 30 (1+) H (Neg-Trace) mg/dL Urine Glucose (UA) Negative (Negative) mg/dL All other labs normal. Assessment and Plan (1) Hematuria: Status: Acute (2) Urinary retention: Status: Acute (3) BPH loc w urin obs/LUTS: Status: Acute Plan 1 Hematuria resolved 2. Continue rodas 3. Renal Bladder Ultrasound 4. Reschedule FU outpatient [facility] Urology for outpatient cystoscopy Procedures Date of Service Date of Service: 06/15/22
--- NOTE | 2022-06-15 12:12 | MHC.CM.PN ---
met with pt and his caregiver in [place] pt is has the [facility] pt has home 02 he does not feel he will need more servceis when dcd he has own ride home
--- NOTE | 2022-06-15 15:51 | P.PNIM_ITS ---
Subjective Subjective Date of Service: 06/15/22 Interval History: anemia possible realted to hematuria Review of Systems Hematuria seems to be improving, denies any chest pain or shortness of breath or abdominal pain or fever chills. Physical Exam Vital Signs: Vital Signs: Last Vital Signs Temp 98.3 F 06/15/22 15:15 Pulse 84 06/15/22 15:15 Resp 18 06/15/22 15:15 BP 114/48 L 06/15/22 15:15 Pulse Ox 97 06/15/22 15:15 O2 Del Method 06/15/22 15:15 O2 Flow Rate 2.5 06/15/22 11:35 Oxygen Flow Rate 2 06/14/22 11:46 BMI result Body Mass Index 9.4 Physical exam: Appearance: Alert.? Oriented X3. cvs: rrr, [id number] , no murmur res: clear to auscultation ,no rhonchii or wheezing abd: no rebound or guarding ,nt, bs present. ext pulses present , no cyanosis. neuro: axo3 , nonfocal. Objective Data Active Medications Acetaminophen (Acetaminophen 325 Mg Tablet) 650 mg PO Q6H PRN PRN Reason: Pain, Mild (Pain Scale 1-3) Last Admin: 06/15/22 09:36 Dose: 650 mg Documented By: PREET Acyclovir (Acyclovir 200 Mg Capsule) 400 mg PO BID [facility] Last Admin: 06/15/22 09:28 Dose: 400 mg Documented By: PREET Albuterol Sulfate (Albuterol Sulfate 90 Mcg 8 Gm Inhaler) 2 puff INHALE QID PRN PRN Reason: Shortness Of Breath Artificial Tears (Artificial Tears 15 Ml Drops) 1 drop EYE-BOTH QID PRN PRN Reason: Dry Eyes Ascorbic Acid (Ascorbic Acid 500 Mg Tablet) 500 mg PO BID [facility] Last Admin: 06/15/22 09:29 Dose: 500 mg Documented By: PREET Aspirin (Aspirin 81 Mg Tab.Chew) 81 mg PO DAILY [facility] Last Admin: 06/15/22 09:29 Dose: 81 mg Documented By: PREET Atorvastatin Calcium (Atorvastatin Calcium 80 Mg Tablet) 80 mg PO DAILY [facility] Last Admin: 06/15/22 09:30 Dose: 80 mg Documented By: PREET Bupropion HCl (Bupropion Hcl 75 Mg Tablet) 75 mg PO DAILY [facility] Last Admin: 06/15/22 09:29 Dose: 75 mg Documented By: PREET Calcium Carbonate (Calcium Carbonate 500 Mg Tablet) 1,000 mg PO DAILY [facility] Last Admin: 06/15/22 09:29 Dose: 1,000 mg Documented By: PREET Clotrimazole (Clotrimazole 1 % Cream 15 Gm Tube) 1 appl TOPICAL BID [facility] Last Admin: 06/15/22 09:28 Dose: 1 appl Documented By: PREET Docusate Sodium (Docusate Sodium 100 Mg Capsule) 100 mg PO DAILY PRN PRN Reason: Constipation Docusate Sodium (Docusate Sodium 100 Mg Capsule) 100 mg PO BID PRN PRN Reason: soften stool Finasteride (Finasteride 5 Mg Tablet) 5 mg PO DAILY [facility] Last Admin: 06/15/22 09:31 Dose: 5 mg Documented By: PREET Furosemide (Furosemide 20 Mg Tablet) 20 mg PO SuTuThSa@0900 [facility]; Protocol Last Admin: 06/15/22 09:30 Dose: 20 mg Documented By: PREET Furosemide (Furosemide 40 Mg Tablet) 40 mg PO MoWeFr@0900 [facility]; Protocol Guaifenesin (Guaifenesin 200 Mg/10 Ml 10 Ml Liquid) 20 ml PO Q4H PRN PRN Reason: Cough Ceftriaxone Sodium 1 gm/ (Sodium Chloride) 50 mls @ 100 mls/hr IV Q24H [facility] Lidocaine (Lidocaine 4 % Patch Adh..Patch) 1 patch TRANSDERMA DAILY [facility] Last Admin: 06/15/22 09:27 Dose: 1 patch Documented By: PREET Loratadine (Loratadine 10 Mg Tablet) 10 mg PO DAILY PRN PRN Reason: Allergy Symptoms Lorazepam (Lorazepam 0.5 Mg Tablet) 0.5 mg PO TID PRN PRN Reason: Anxiety Methimazole (Methimazole 5 Mg Tablet) 5 mg PO MoWeFr@0900 [facility] Metoprolol Succinate (Metoprolol Succinate Er 50 Mg Tab.Er.24h) 50 mg PO DAILY [facility]; Protocol Last Admin: 06/15/22 09:28 Dose: 50 mg Documented By: PREET Multi-Ingred Cream/Lotion/Oil/Oint (Mineral Oil/Petrolatum,White 106 Gm Tube) 1 appl TOPICAL DAILY PRN; Protocol PRN Reason: Dry Skin Nitroglycerin (Nitroglycerin 0.4 Mg Tab.Subl) 0.4 mg SUBLINGUAL Q5M PRN PRN Reason: Chest Pain Non-Formulary Medication (Budesonide) 0.25 mg INHALE BID [facility] Non-Formulary Medication (Tiotropium-Olodaterol) 2 puff INHALE DAILY [facility] Omeprazole (Omeprazole 20 Mg Capsule.Dr) 20 mg PO DAILY [facility] Last Admin: 06/15/22 09:29 Dose: 20 mg Documented By: PREET Ondansetron HCl (Ondansetron Hcl 4 Mg/2 Ml Vial) 4 mg IVPUSH Q8H PRN PRN Reason: Nausea and Vomiting Polyethylene Glycol (Polyethylene Glycol 3350 17 Gm Powd.Pack) 17 gm PO DAILY PRN PRN Reason: Constipation Quetiapine Fumarate (Quetiapine Fumarate 100 Mg Tablet) 100 mg PO BEDTIME PRN PRN Reason: Sleep Quetiapine Fumarate (Quetiapine Fumarate 100 Mg Tablet) 100 mg PO BEDTIME [facility] Last Admin: 06/15/22 01:33 Dose: 100 mg Documented By: ANGELA Senna (Sennosides 8.6 Mg Tablet) 8.6 mg PO BID PRN PRN Reason: Constipation Tamsulosin HCl (Tamsulosin Hcl 0.4 Mg Capsule) 0.4 mg PO DAILY@1700 [facility] Temazepam (Temazepam 15 Mg Capsule) 15 mg PO BEDTIME PRN PRN Reason: Sleep Tramadol HCl (Tramadol Hcl 50 Mg Tablet) 50 mg PO DAILY PRN PRN Reason: Pain, Severe (Pain Scale 7-10) Vitamin D (Cholecalciferol (Vitamin D3) 25 Mcg Tablet) 25 mcg PO DAILY [facility] Last Admin: 06/15/22 09:30 Dose: 25 mcg Documented By: PREET Labs CBC & Chem 7: 06/15/22 06:55 06/15/22 06:55 Labs: Laboratory Results - last 24 hr 06/14/22 06/15/22 06/15/22 19:58 06:55 06:55 MCV 98.3 H MCH 31.3 MCHC 31.8 RDW 13.8 Plt Count 137 L MPV 10.2 Immature Gran % (Auto) 0.6 H Neut % (Auto) 61.5 Lymph % (Auto) 16.[address] [place] % (Auto) 15.7 H Eos % (Auto) 5.3 H Baso % (Auto) 0.4 Lymph # (Auto) 1.2 [place] # (Auto) 1.1 Eos # (Auto) 0.4 Baso # (Auto) 0.0 Abs Immat Gran (auto) 0.04 H Absolute Neuts (auto) 4.4 Absolute Nucleated RBC 0.000 Nucleated RBC % (auto) 0.0 Anion Gap 13 Estim Creat Clear Calc 30.9 Estimated GFR > 60 Random Glucose 92 Calcium 7.9 L Urine Color Yellow Urine Appearance Clear Urine pH 5.5 Ur Specific [place] 1.020 Urine Protein 30 (1+) H Urine Glucose (UA) Negative Urine Ketones Trace Urine Blood Moderate (2+) H Urine Nitrite Negative Ur Leukocyte Esterase Moderate (2+) H Urine RBC >20 H Urine WBC 21-50 H Ur Squamous Epith Cells 3-5 Urine Bacteria None Seen Hyaline Casts 0-2 COVID-19 ([facility]) COVID-19 Clin Com 06/15/22 09:14 MCV MCH MCHC RDW Plt Count MPV Immature Gran % (Auto) Neut % (Auto) Lymph % (Auto) [place] % (Auto) Eos % (Auto) Baso % (Auto) Lymph # (Auto) [place] # (Auto) Eos # (Auto) Baso # (Auto) Abs Immat Gran (auto) Absolute Neuts (auto) Absolute Nucleated RBC Nucleated RBC % (auto) Anion Gap Estim Creat Clear Calc Estimated GFR Random Glucose Calcium Urine Color Urine Appearance Urine pH Ur Specific [place] Urine Protein Urine Glucose (UA) Urine Ketones Urine Blood Urine Nitrite Ur Leukocyte Esterase Urine RBC Urine WBC Ur Squamous Epith Cells Urine Bacteria Hyaline Casts COVID-19 ([facility]) Negative COVID-19 Clin Com See Note Assessment and Plan (1) Urinary retention: Status: Acute (2) BPH loc w urin obs/LUTS: Status: Acute (3) Hematuria: Status: Acute Plan 76-year-old male with past medical history as mentioned presents to the hospital with palpitations, left hand numbness, and found to have anemia # numbness and tingling of left hand - MRI negative - possibly secondary to anemia and resolved - monitor # acute blood loss anemia - likely secondary to hematuria - urine positive for blood and RBC - according to the patient he had a traumatic Lamas catheter insertion on 06/13 with hematuria - will consult Urology # hematuria - likely secondary to Lamas insertion - urology consulted # acute UTI - will treat with IV antibiotics - follow cultures # palpitations - likely secondary to acute anemia, denies any new apalpattaion today - no EKG changes - underlying WPW - monitor on telemetry # hypertension -BP stable - will hold antihypertensive this patient may have further bleeding # CAD - stable with no chest pain - continue home meds copd : seems stable ch respiratory failure sec to copd -continue home meds and oxygen DVT prophylaxis:? SCDs inpatient need: hematuria /anemia -workup pending ,urology eval pending Quality Stroke Does the patient have a stroke diagnosis?: No VTE Prior VTE?: No VTE Risk Level:: Medical - low VTE Device Contraindication: N/A - Device Ordered VTE Drug Contraindication: Treatment Not Indicated
[2022-06-15] MEDS: Tamsulosin HCL 0.4 MG CAPSULE PO (18:14)
[2022-06-15] MEDS: cefTRIAXone sodium 1 GM in 0.9 % Sodium Chloride 50 ML IV (21:03)
--- NOTE | 2022-06-15 21:28 | PC.NURSE ---
Patient alert and oriented, pleasant. Lamas putting out cloudy/sediment urine. Antibiotic started - report given to Peter CAM - patient transferred up to inpatient floor. Vitals stable. Patient on 2 liters nasal cannula - patient reports on 2 liters at home.
[2022-06-16] VITALS: BP 97/46; PULSE 80; RESP 18; TEMP 36.6; O2SAT 98
[2022-06-16 04:00] VITALS: BP 97/54; PULSE 80; RESP 18; TEMP 36.4; O2SAT 97
[2022-06-16 08:00] VITALS: BP 103/60; PULSE 86; RESP 18; TEMP 36.6; O2SAT 97
[2022-06-16] MEDS: Aspirin 81 MG TAB.CHEW PO (09:47)
[2022-06-16] MEDS: Furosemide 40 MG TABLET PO (09:48)
[2022-06-16] MEDS: methIMAzole 5 MG TABLET PO (09:48)
[2022-06-16] MEDS: buPROPion HCL 75 MG TABLET PO (09:48)
[2022-06-16] MEDS: Acyclovir 200 MG CAPSULE 400 MG PO (09:48)
[2022-06-16] MEDS: Finasteride 5 MG TABLET PO (09:49)
[2022-06-16] MEDS: Atorvastatin Calcium 80 MG TABLET PO (09:49)
[2022-06-16] MEDS: Omeprazole 20 MG CAPSULE.DR PO (09:49)
[2022-06-16] MEDS: Ascorbic Acid 500 MG TABLET PO (09:49)
[2022-06-16] MEDS: Cholecalciferol (Vitamin D3) 25 MCG TABLET PO (09:49)
[2022-06-16] MEDS: Lidocaine 4 % Patch ADH..PATCH 1 PATCH TRANSDERMA (09:49)
[2022-06-16] MEDS: Clotrimazole 1 % Cream 15 GM TUBE 1 APPL TOPICAL (09:50)
[2022-06-16 10:42] VITALS: BP 103/60; PULSE 86; O2SAT 97
[2022-06-16 10:49] VITALS: BMI 20.1
[2022-06-16 12:00] VITALS: BP 111/60; PULSE 97; RESP 18; TEMP 37.4; O2SAT 98
--- NOTE | 2022-06-16 15:02 | MHC.CLN ---
NUTRITION PATIENT REPORTS THAT EATING WELL. DOES NOT WANT ENSURE SUPPLEMENT DURING ADMISSION PREFERS TO EAT MEALS. DOES TAKE ENSURE AT HOME. REPORTS WEIGHT FLUCTUATION BUT NO CAUSE IDENTIFIED. BMI=20.1 WITH WEIGHT 86% IBW. PATIENT APPEARS WELL NOURISHED. RD DID NOT ASSESS HIGH RISK LEVEL SINCE APPEARS WELL NOURISHED AND EATING WELL.
[2022-06-16 15:09] VITALS: BP 142/72; PULSE 63; RESP 18; TEMP 35.9; O2SAT 96
--- NOTE | 2022-06-16 16:04 | MHC.CM.PN ---
Addendum entered by Asha Valera RN 06/16/22 16:35: PCP IS JONI VINCENT MD OF [facility].A Original Note: [facility] IS DC HOME TODAY
--- NOTE | 2022-06-16 16:37 | P.DS_ITS ---
DS: Providers Provider Date of Service: 06/16/22 Date of admission: 06/14/22 21:08 Primary care physician: Unknown Physician Consults: 06/14/22 21:02 Consult to Urology Routine Consulting Provider: Ho Santana Reason for consultation: hematuria Has provider been notified: No Attending physician on discharge: Prince Joseph Discharging clinician: Prince Joseph DS: Diagnosis Discharge Diagnosis (1) Urinary retention: Status: Acute (2) BPH loc w urin obs/LUTS: Status: Acute (3) Hematuria: Status: Acute (4) Acute UTI: Status: Acute (5) Anemia: Status: Acute DS: Summary Hospital Course Hospital Course: 76-year-old male with past medical history of CAD, chronic constipation, COPD on 2.5 L at baseline, HTN, HLD, hyperthyroidism, GERD, history of UTI, history of urinary retention and BPH with chronic Rodas, 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 With recent visit to the ER on 06/13 for a blocked catheter and hematuria who presents to the ER from home via EMS after his visiting nurse found him to have an irregular heart beat.? Patient reports that he had palpitations, and also felt numbness in his left hand.? He reports that on leaving the hospital and 06/13 some bleeding from the penis in that up and feels that is at is not bleeding anymore.? He did have a lot of hematuria in the Rodas catheter on arrival on 07/01 but has not noticed any bleed in his catheter bag.? He reports no chest pain, no shortness of breath more than usual, no cough or sputum production, no abdominal pain nausea or vomiting, no diarrhea, has chronic constipation, no lower extremity edema.? On arrival to the ED patient hemodynamically stable with no significant abnormal vitals Labs are significant E WBC count of 7 point hemoglobin of 9.6, hematocrit 29.7.? Hemoglobin dropped from 12.4 on 06/12 to 9.6 today.? Labs otherwise unremarkable, urine does show leukocyte Estrace and large amount of WBC.? As well as hematuria with RBC and blood in urine Brain MRI shows no acute infarct or other acute intracranial abnormality. Hospital course: Patient was admitted due to hematuria, thought to be possible UTI and started o n antibiotics as well as aspirin was put on hold due to hematuria: Subsequently patient's hematuria seems to be improved . uti less likely ,possible a thesymptomatic pyuria-blood culture negative at 24 hours as well as urine culture-not significant growth. patient does not have any sypmtoms. renal us -seems fine except Bilateral renal cysts.? Patient already has appointment with Urology for further workup outpatient if as far as hematuria is concern. In addition urology recommended to continue Rodas for now. Since hematuria is resolved urology recommended to restart aspirin upon di scharge. numbness and tingling of left hand-improved, MRI head negative. Further management out patiently with PCP. anemia : seems h/h stable around 9.29 range -moniter cbc and outpatient workup with pcp. Seen by PT and recommended home PT. Above management discussed with the patient in detail length he understand and in agreement with the above plan, time spent 50 minutes and 50% time spent on counseling. Significant findings: As above. Procedures performed: None. Treatment and response: As above. Complications: None. Time Spent with Patient Time attestation: Total time spent providing and/or coordinating discharge services: Discharge coordination time: Greater than 30 minutes Quality: Safe Use of Opioids Does Pt have an Active Cancer Diagnosis on the Problem List?: No Quality: Stroke Does the patient have a stroke diagnosis?: No Physical Exam Vital Signs: Vital Signs: Last Vital Signs Temp 96.6 F L 06/16/22 15:09 Pulse 63 06/16/22 15:09 Resp 18 06/16/22 15:09 BP 142/72 H 06/16/22 15:09 Pulse Ox 96 06/16/22 15:09 O2 Del Method 06/16/22 15:09 O2 Flow Rate 2 06/16/22 12:00 Oxygen Flow Rate 2 06/14/22 11:46 BMI result Body Mass Index 20.1 Appearance: Alert.? Oriented X3. cvs: rrr, [id number] , no murmur res: clear to auscultation ,no rhonchii or wheezing abd: no rebound or guarding ,nt, bs present. : has rodas with clear urine. ext pulses present , no cyanosis. neuro: axo3 , nonfocal. DS: Data Additional Comments Additional comments: 06/14/22 06/15/22 06/15/22 ? 19:58 06:55 06:55 MCV ? ?98.3 H ? MCH ? ?31.3 ? MCHC ? ?31.8 ? RDW ? ?13.8 ? Plt Count ? ?137 L ? MPV ? ?10.2 ? Immature Gran % (Auto) ? ?0.6 H ? Neut % (Auto) ? ?61.5 ? Lymph % (Auto) ? ?16.5 L ? [place] % (Auto) ? ?15.7 H ? Eos % (Auto) ? ?5.3 H ? Baso % (Auto) ? ?0.4 ? Lymph # (Auto) ? ?1.2 ? [place] # (Auto) ? ?1.1 ? Eos # (Auto) ? ?0.4 ? Baso # (Auto) ? ?0.0 ? Abs Immat Gran (auto) ? ?0.04 H ? Absolute Neuts (auto) ? ?4.4 ? Absolute Nucleated RBC ? ?0.000 ? Nucleated RBC % (auto) ? ?0.0 ? Anion Gap ? ? ?13 Estim Creat Clear Calc ? ? ?30.9 Estimated GFR ? ? ?> 60 Random Glucose ? ? ?92 Calcium ? ? ?7.9 L Urine Color ?Yellow ? ? Urine Appearance ?Clear ? ? Urine pH ?5.5 ? ? Ur Specific [place] ?1.020 ? ? Urine Protein ?30 (1+) H ? ? Urine Glucose (UA) ?Negative ? ? Urine Ketones ?Trace ? ? Urine Blood ?Moderate (2+) H ? ? Urine Nitrite ?Negative ? ? Ur Leukocyte Esterase ?Moderate (2+) HB ? ? Urine RBC ?>20 H ? ? Urine WBC ?21-50 H ? ? Ur Squamous Epith Cells ?3-5 ? ? Urine Bacteria ?None Seen ? ? Hyaline Casts ?0-2 ?US/US retroperitoneal comp IMPRESSION: Bilateral renal cysts. No echogenic renal calculi or hydronephrosis. ? There is echogenic debris within the bladder with a Rodas's catheter in bladder. ? Bilateral ureteral jets are not seen. MR/MR head/brain wo con IMPRESSION: ? No acute infarct or other acute intracranial abnormality ? Discharge Plan Discharge Patient Disposition: Home Health Service Discharge Diagnosis: hematuria Referrals: [facility] [Outside] - 1 Week Ranjan Rodríguez MD [Physician] - 2 days Es Howard DO, MD [Physician] - 1 Week Discharge Medications: Continued sennosides [senna] 8.6 mg Tablet 8.6 mg PO BID PRN (Reason: Constipation) metoprolol succinate 50 mg Tablet Extended Release 24 Hr 50 mg PO DAILY alendronate [Fosamax] 70 mg Tablet 70 mg PO PEREYRA tramadol 50 mg Tablet 50 mg PO DAILY PRN (Reason: Pain) quetiapine 100 mg Tablet 100 mg PO BEDTIME PRN (Reason: Sleep) guaifenesin 200 mg Tablet 400 mg PO BID PRN (Reason: Cough) lorazepam 0.5 mg Tablet 0.5 mg PO TID PRN (Reason: Anxiety) calcium carbonate 500 mg calcium (1,250 mg) Tablet 1,000 mg PO DAILY ascorbic acid (vitamin C) [Vitamin C] 500 mg Tablet 500 mg PO BID tamsulosin [Flomax] 0.4 mg Capsule 0.4 mg PO DAILY@1700 lidocaine [Lidoderm] 5 % Adhesive Patch,Medicated 1 patch TOPICAL DAILY Rx Instructions: left shoulder losartan 25 mg Tablet 25 mg PO DAILY ibuprofen 400 mg Tablet 400 mg PO Q8H PRN (Reason: Pain, Mild) bupropion HCl 75 mg Tablet 75 mg PO DAILY nitroglycerin 0.4 mg Tablet, Sublingual 0.4 mg SUBLINGUAL Q5M PRN (Reason: Chest Pain) Rx Instructions: do not exceed 3 doses per episode methimazole 5 mg Tablet 5 mg PO MOWEFR budesonide 0.25 mg/2 mL Suspension For Nebulization 0.25 mg INHALATION BID omeprazole 20 mg Capsule,Delayed Release(Dr/Ec) 20 mg PO DAILY aspirin 81 mg Tablet,Chewable 81 mg PO DAILY acyclovir 200 mg Capsule 400 mg PO BID zaleplon 10 mg Capsule 10 - 20 mg PO BEDTIME PRN (Reason: Sleep) Rx Instructions: must avoid high-fat meal/food immediately before taking dose furosemide [Lasix] 20 mg Tablet 20 mg PO SUTUTHSA furosemide [Lasix] 20 mg Tablet 40 mg PO MOWEFR albuterol sulfate [ProAir HFA] 90 mcg/actuation Hfa Aerosol Inhaler 2 puff INHALATION QID PRN (Reason: Shortness Of Breath) finasteride [Proscar] 5 mg Tablet 5 mg PO DAILY loratadine [Claritin] 10 mg Tablet 10 mg PO DAILY PRN (Reason: Allergy Symptoms) Lactobacillus acidophilus Tablet,Chewable 1 tab PO DAILY rosuvastatin [Crestor] 40 mg Tablet 20 mg PO DAILY cholecalciferol (vitamin D3) [Vitamin D3] 25 mcg (1,000 unit) Tablet 25 mcg PO DAILY tiotropium-olodaterol 2.5-2.5 mcg/actuation Mist 2 puff INHALATION DAILY polyethylene glycol 3350 17 gram Powder In Packet 17 g PO DAILY PRN (Reason: Constipation) Qty: 30 0RF docusate sodium 100 mg Capsule 100 mg PO BID PRN (Reason: soften stool) Qty: 60 0RF nitrofurantoin monohyd/m-cryst [Macrobid] 100 mg capsule 100 mg PO Q12H 7 Days Qty: 14 0RF Rx Instructions: must administer with a meal/food terbinafine HCl 1 % Cream 1 appl TOPICAL BID quetiapine 100 mg Tablet 100 mg PO BEDTIME carboxymethylcellulose sodium 0.5 % Drops 1 drp OPHTHALMIC (EYE) QID PRN (Reason: Dry Eyes) white petrolatum-mineral oil Cream 1 appl TOPICAL DAILY PRN (Reason: Dry Skin) Discharge Orders: Discharge Order (Routine); Ordered 06/16/22 Ordered By: Prince Joseph Diet: Advance to usual diet Activity on Discharge: As tolerated Stand Alone Forms: Patient Portal Discharge page Care Plan Goals: Patient was admitted due to hematuria, thought to be possible UTI and started on antibiotics as well as aspirin was put on hold due to hematuria: Subsequently patient's hematuria seems to be improved . uti less likely ,possible a thesymptomatic pyuria-blood culture negative at 24 hours as well as urine culture-not significant growth. patient does not have any sypmtoms. renal us -seems fine except Bilateral renal cysts.? Patient already has appointment with Urology for further workup outpatient if as far as hematuria is concern. In addition urology recommended to continue Rodas for now. Since hematuria is resolved urology recommended to restart aspirin upon discharge. numbness and tingling of left hand-improved, MRI head negative. Further management out patiently with PCP. anemia : seems h/h stable around 9.2/29 range -moniter cbc and outpatient workup with pcp. Seen by PT and recommended home PT. Health Concerns: As above. Plan of Treatment: And complete antibiotics. Monitor for hematuria. Monitor CBC outpatient in 1week with PCP. Assessment: As above. Patient Instructions: Paresthesia (ED)
[2022-06-16] MEDS: cephALEXin 500 MG CAPSULE PO (16:59)
[2022-06-16] MEDS: Tamsulosin HCL 0.4 MG CAPSULE PO (16:59)
== END 2022-06-16 18:22 | disposition home health service (06) ==
LOC: HO.ED 20:52 → HO.EDOVER 21:28 → HO.S3 06-15 19:56
PROVIDERS: Physician Assistant; Admitting Provider Internal Medicine; Emergency Provider Emergency Medicine; PCP Internal Medicine; Visit Provider Internal Medicine
DX: R20.0 Anesthesia of skin (principal); R20.2 Paresthesia of skin; D62 Acute posthemorrhagic anemia; N39.0 Urinary tract infection, site not specified; R31.9 Hematuria, unspecified; R00.2 Palpitations; N40.1 Benign prostatic hyperplasia with lower urinary tract symptoms; R33.8 Other retention of urine; Z20.822 Contact with and (suspected) exposure to COVID-19; I10 Essential (primary) hypertension; J44.9 Chronic obstructive pulmonary disease, unspecified; Z99.81 Dependence on supplemental oxygen; R06.02 Shortness of breath; E78.5 Hyperlipidemia, unspecified; K21.9 Gastro-esophageal reflux disease without esophagitis; I45.6 Pre-excitation syndrome; Z96.0 Presence of urogenital implants; Z87.440 Personal history of urinary (tract) infections; Z79.82 Long term (current) use of aspirin; Z79.899 Other long term (current) drug therapy; Z79.02 Long term (current) use of antithrombotics/antiplatelets; Z87.891 Personal history of nicotine dependence
CPT/HCPCS: 36415; 70450; 70551; 72125; 76770; 80048; 80076; 81001; 83735; 84100; 85025; 85610; 85730; 87635; 93005; 96361; 96365; 96366; 96367; 97162; 99218; 99285; J0696

== ENCOUNTER → 2022-07-16 14:50 | Outpatient (BNVA) | payer OTHER, SELFPAY | PROVIDERS: PCP Internal Medicine; Visit Provider Urology | DX: N40.1 Benign prostatic hyperplasia with lower urinary tract symptoms (principal); R33.9 Retention of urine, unspecified | CPT/HCPCS: 52000; 99212 ==

== ENCOUNTER → 2022-07-30 13:26 | Outpatient (BNVA) | payer MEDICARE, OTHER, SELFPAY | PROVIDERS: PCP Internal Medicine; Visit Provider Urology | DX: R33.9 Retention of urine, unspecified (principal) | CPT/HCPCS: 51798 ==

== ENCOUNTER 2024-11-01 13:54 | Emergency (ER) | payer MEDICARE, MEDICAID, SELFPAY ==
--- NOTE | ~2024-11-01 | XR_ITS ---
CLINICAL HISTORY: sob 1 view chest x-ray Comparison: CR/WA/SR - XR CHEST 2V - 05/21/22 14:35 EDT Findings: Small calcified granuloma at the right lung apex. Small linear opacities at the bilateral lung bases. No consolidation. Heart size is normal. Postsurgical changes of the cervical spine. No acute fracture. IMPRESSION: Minimal atelectasis of the lung bases. This document has been electronically signed by: Ivette Sampson MD on 11/01/2024 17:40:43
--- NOTE | 2024-11-01 16:16 | ED_ITS ---
HPI - Overdose General Chief Complaint: General Medical Stated Complaint: ACCIDENTAL OD,HYPOTENSION Time Seen by Provider: 11/01/24 16:14 Source: patient Mode of arrival: EMS Limitations: no limitations History of Present Illness ED Provider: HPI Narrative: 78 years old with history of COPD on 2.5 L oxygen hypotension hyperthyroidism WPW syndrome took his night medication at noon time instead of at bedtime which includes zolpidem 10 mg, Klonopin and lorazepam patient noted to be very sleepy and confused to any [employer] arrived blood pressure was 88/50 when EMS arrived responded to IV fluids patient denied any chest pain no shortness a breath at this time on evaluation patient is back to normal was watching TV says that he did not realize that the daytime thought it was nighttime that is why took the medication Related Data Home Medications ?Medication ?Instructions ?Recorded ?Confirmed Lactobacillus acidophilus 1 tab PO DAILY 05/21/22 06/14/22 acyclovir 200 mg capsule 400 mg PO BID 05/21/22 06/14/22 albuterol sulfate 90 mcg/actuation 2 puff inhalation QID PRN 05/21/22 06/14/22 aerosol inhaler (ProAir HFA) Shortness Of Breath alendronate 70 mg tablet (Fosamax) 70 mg PO PEREYRA 05/21/22 06/14/22 ascorbic acid (vitamin C) 500 mg 500 mg PO BID 05/21/22 06/14/22 tablet (Vitamin C) aspirin 81 mg chewable tablet 81 mg PO DAILY 05/21/22 06/14/22 budesonide 0.25 mg/2 mL suspension 0.25 mg inhalation BID 05/21/22 06/14/22 for nebulization bupropion HCl 75 mg tablet 75 mg PO DAILY 05/21/22 06/14/22 calcium carbonate 1,000 mg PO DAILY 05/21/22 06/14/22 cholecalciferol (vitamin D3) 25 25 mcg PO DAILY 05/21/22 06/14/22 mcg (1,000 unit) tablet (Vitamin D3) finasteride 5 mg tablet (Proscar) 5 mg PO DAILY 05/21/22 06/14/22 furosemide 20 mg tablet (Lasix) 20 mg PO SUTUTHSA 05/21/22 06/14/22 furosemide 20 mg tablet (Lasix) 40 mg PO MOWEFR 05/21/22 06/14/22 guaifenesin 200 mg tablet 400 mg PO BID PRN Cough 05/21/22 06/14/22 ibuprofen 400 mg tablet 400 mg PO Q8H PRN Pain, Mild 05/21/22 06/14/22 lidocaine 5 % topical patch 1 patch topical DAILY 05/21/22 06/14/22 (Lidoderm) loratadine 10 mg tablet (Claritin) 10 mg PO DAILY PRN Allergy Symptoms 05/21/22 06/14/22 lorazepam 0.5 mg tablet 0.5 mg PO TID PRN Anxiety 05/21/22 06/14/22 losartan 25 mg tablet 25 mg PO DAILY 05/21/22 06/14/22 methimazole 5 mg tablet 5 mg PO MOWEFR 05/21/22 06/14/22 metoprolol succinate 50 mg 50 mg PO DAILY 05/21/22 06/14/22 tablet,extended release 24 hr nitroglycerin 0.4 mg sublingual 0.4 mg sublingual Q5M PRN Chest 05/21/22 06/14/22 tablet Pain omeprazole 20 mg capsule,delayed 20 mg PO DAILY 05/21/22 06/14/22 release quetiapine 100 mg tablet 100 mg PO BEDTIME PRN Sleep 05/21/22 06/14/22 rosuvastatin 40 mg tablet (Crestor) 20 mg PO DAILY 05/21/22 06/14/22 sennosides 8.6 mg tablet (senna) 8.6 mg PO BID PRN Constipation 05/21/22 06/14/22 tamsulosin 0.4 mg capsule (Flomax) 0.4 mg PO DAILY@1700 05/21/22 06/14/22 tiotropium 2.5 mcg-olodaterol 2.5 2 puff inhalation DAILY 05/21/22 06/14/22 mcg/actuation mist for inhalation tramadol 50 mg tablet 50 mg PO DAILY PRN Pain 05/21/22 06/14/22 zaleplon 10 mg capsule 10 - 20 mg PO BEDTIME PRN Sleep 05/21/22 06/14/22 carboxymethylcellulose sodium 0.5 1 drp ophthalmic (eye) QID PRN Dry 06/14/22 06/14/22 % eye drops Eyes quetiapine 100 mg tablet 100 mg PO BEDTIME 06/14/22 06/14/22 terbinafine HCl 1 % topical cream 1 appl topical BID 06/14/22 06/14/22 white petrolatum-mineral oil 1 appl topical DAILY PRN Dry Skin 06/14/22 06/14/22 topical cream Previous Rx's ?Medication ?Instructions ?Recorded docusate sodium 100 mg capsule 100 mg PO BID PRN soften stool #60 05/30/22 caps polyethylene glycol 3350 17 gram 17 g PO DAILY PRN Constipation #30 05/30/22 oral powder packet ea nitrofurantoin 100 mg PO Q12H 7 days #14 caps 06/13/22 monohydrate/macrocrystals 100 mg capsule (Macrobid) cephalexin 500 mg capsule 500 mg PO BID #10 caps 06/16/22 Allergies Allergy/AdvReac Type Severity Reaction Status Date / Time No Known Allergies Allergy Unverified 11/01/24 16:46 [No Known Allergies*] Review of Systems 2 Review of Systems: Yes all other systems are reviewed and are negative [facility] Past Medical History Medical History Hematuria Hyperthyroidism HLD (hyperlipidemia) Chronic indwelling Lamas catheter History of fecal impaction GERD (gastroesophageal reflux disease) Hypertension Supplemental oxygen dependent COPD (chronic obstructive pulmonary disease) Constipation WPW (Hbkjy-Tsoiqxxqn-Xfiod syndrome) CAD (coronary artery disease) Surgical History No pertinent past surgical history Family History Family History Other No family history of coronary artery disease Social History Social History Household Members: Children and Other Household Members Other:: Caregiver, son and daughter Housing: House Alcohol intake: never Patient Tobacco Use Status: Former Tobacco user Smoked in Last 30 Days: No Use of substances other than those prescribed or required for medical reasons: No Advance Directives: Yes Advance Directives Information Provided: No Advance Directives on File: No Do you have a plan to hurt others: No Plan service: Yes Current occupational status: disabled Physical Exam 2 Vital Signs: Vital Signs: Last Vital Signs Temp 98.2 F 11/01/24 20:20 Pulse 66 11/01/24 20:20 Resp 16 11/01/24 20:20 BP 115/61 11/01/24 20:20 Pulse Ox 97 11/01/24 20:20 O2 Del Method Nasal Cannula 11/01/24 20:20 O2 Flow Rate 2 11/01/24 20:20 Oxygen Flow Rate 2 11/01/24 16:43 BMI result Body Mass Index 23.8 Appearance: Alert. Oriented X3. No acute distress. Eyes: Pale+ ENT: Pharynx normal. Oral Mucosa moist Neck: Normal inspection. Neck supple. CVS: Normal heart rate and rhythm. Pulses normal. Respiratory: No respiratory distress. Equal air entry bilateral, no wheezing/rales/rhonchi Abdomen: Soft and nontender. Bowel sounds are present, no mass palpable, no CVA tenderness Skin: Skin warm and dry. Normal skin color. Normal skin turgor. Extremities: No lower extremity edema. No calf tenderness Neuro: Oriented X 3. No motor deficit. No sensory deficit.No cerebellar signs , cranial nerves II-XII intact Medical Decision Making Medical Decision Making [facility] Narrative: Patient with accidental overdose on benzos about 10 hours ago alert oriented x3 at this time family's bedside will monitor the medications will discharge patient home Lab Data [facility] Lab Attestation statement: I reviewed the patient's lab results. 11/01/24 17:21 11/01/24 17:21 Labs: Lab Results 11/01/24 Range/Units 17:21 WBC 7.5 (4.8-10.8) X10*3/uL RBC 4.28 L D (4.60-5.80) X10*6/uL Hgb 12.6 L D (14.0-18.0) g/dl Hct 39.9 L D (42.0-52.0) % MCV 93.2 (80.0-98.0) fL MCH 29.4 (27.0-33.0) pg MCHC 31.6 (31.0-36.0) g/dl RDW 14.1 (11.0-16.0) % Plt Count 144 L (160-400) X10*3/uL MPV 11.2 (9.4-12.4) fL Immature Gran % (Auto) 0.3 (0.0-0.4) % Neut % (Auto) 61.8 (45-73) % Lymph % (Auto) 21.2 (20-40) % [place] % (Auto) 11.3 H (2-11) % Eos % (Auto) 4.6 H (0-4) % Baso % (Auto) 0.8 (0-2) % Lymph # (Auto) 1.6 (1.2-4.9) X10*3/uL [place] # (Auto) 0.8 (0.1-1.2) X10*3/uL Eos # (Auto) 0.3 (0.0-0.4) X10*3/uL Baso # (Auto) 0.1 (0.0-0.2) X10*3/uL Abs Immat Gran (auto) 0.02 (0.00-0.03) X10*3/uL Absolute Neuts (auto) 4.6 (2.0-8.3) x10*3/uL Absolute Nucleated RBC 0.000 (0.0-0.012) X10*3/uL Nucleated RBC % (auto) 0.0 (0.0-0.2) /100WBC Sodium 143 (135-145) mmol/L Potassium 3.8 (3.3-5.1) mmol/L Chloride 101 (96-108) mmol/L Carbon Dioxide 37 H (22-29) mmol/L Anion Gap 9 L (12-20) BUN 17 H (9-16) mg/dL Creatinine 0.77 (0.5-1.4) mg/dL Estim Creat Clear Calc 71.3 Estimated GFR > 60 Random Glucose 131 H (60-115) mg/dL Calcium 9.0 D (8.4-10.2) mg/dL Magnesium 1.7 (1.6-2.6) mg/dL Total Bilirubin 0.4 (0.0-1.0) mg/dL AST 23 (5-37) U/L ALT 8 (0-40) U/L Alkaline Phosphatase 70 (39-117) U/L Troponin I High Sens 9.3 (<3.5-35.0) ng/L Total Protein 6.3 L (6.5-8.0) g/dL Albumin 3.5 (3.5-5.0) g/dL Independent Interpretation I performed an independent interpretation of an: EKG Interpretation: Normal sinus rhythm heart rate 57 beats per minute WPW no acute STT wave changes no acute ischemia Discharge Plan Discharge Clinical Impression: Accidental overdose Patient Disposition: Home, Self-Care Instructions: Adult Overdose (ED) Additional Instructions: Care and cautions as advised when you take your medication Take medication appropriately as prescribed Prescriptions: No Action sennosides [senna] 8.6 mg Tablet 8.6 mg PO BID PRN (Reason: Constipation) metoprolol succinate 50 mg Tablet Extended Release 24 Hr 50 mg PO DAILY alendronate [Fosamax] 70 mg Tablet 70 mg PO PEREYRA tramadol 50 mg Tablet 50 mg PO DAILY PRN (Reason: Pain) quetiapine 100 mg Tablet 100 mg PO BEDTIME PRN (Reason: Sleep) guaifenesin 200 mg Tablet 400 mg PO BID PRN (Reason: Cough) lorazepam 0.5 mg Tablet 0.5 mg PO TID PRN (Reason: Anxiety) calcium carbonate 500 mg calcium (1,250 mg) Tablet 1,000 mg PO DAILY ascorbic acid (vitamin C) [Vitamin C] 500 mg Tablet 500 mg PO BID tamsulosin [Flomax] 0.4 mg Capsule 0.4 mg PO DAILY@1700 lidocaine [Lidoderm] 5 % Adhesive Patch,Medicated 1 patch TOPICAL DAILY Rx Instructions: left shoulder losartan 25 mg Tablet 25 mg PO DAILY ibuprofen 400 mg Tablet 400 mg PO Q8H PRN (Reason: Pain, Mild) bupropion HCl 75 mg Tablet 75 mg PO DAILY nitroglycerin 0.4 mg Tablet, Sublingual 0.4 mg SUBLINGUAL Q5M PRN (Reason: Chest Pain) Rx Instructions: do not exceed 3 doses per episode methimazole 5 mg Tablet 5 mg PO MOWEFR budesonide 0.25 mg/2 mL Suspension For Nebulization 0.25 mg INHALATION BID omeprazole 20 mg Capsule,Delayed Release(Dr/Ec) 20 mg PO DAILY aspirin 81 mg Tablet,Chewable 81 mg PO DAILY acyclovir 200 mg Capsule 400 mg PO BID zaleplon 10 mg Capsule 10 - 20 mg PO BEDTIME PRN (Reason: Sleep) Rx Instructions: must avoid high-fat meal/food immediately before taking dose furosemide [Lasix] 20 mg Tablet 20 mg PO SUTUTHSA furosemide [Lasix] 20 mg Tablet 40 mg PO MOWEFR albuterol sulfate [ProAir HFA] 90 mcg/actuation Hfa Aerosol Inhaler 2 puff INHALATION QID PRN (Reason: Shortness Of Breath) finasteride [Proscar] 5 mg Tablet 5 mg PO DAILY loratadine [Claritin] 10 mg Tablet 10 mg PO DAILY PRN (Reason: Allergy Symptoms) Lactobacillus acidophilus Tablet,Chewable 1 tab PO DAILY rosuvastatin [Crestor] 40 mg Tablet 20 mg PO DAILY cholecalciferol (vitamin D3) [Vitamin D3] 25 mcg (1,000 unit) Tablet 25 mcg PO DAILY tiotropium-olodaterol 2.5-2.5 mcg/actuation Mist 2 puff INHALATION DAILY polyethylene glycol 3350 17 gram Powder In Packet 17 g PO DAILY PRN (Reason: Constipation) Qty: 30 0RF docusate sodium 100 mg Capsule 100 mg PO BID PRN (Reason: soften stool) Qty: 60 0RF nitrofurantoin monohyd/m-cryst [Macrobid] 100 mg capsule 100 mg PO Q12H 7 Days Qty: 14 0RF Rx Instructions: must administer with a meal/food terbinafine HCl 1 % Cream 1 appl TOPICAL BID quetiapine 100 mg Tablet 100 mg PO BEDTIME carboxymethylcellulose sodium 0.5 % Drops 1 drp OPHTHALMIC (EYE) QID PRN (Reason: Dry Eyes) white petrolatum-mineral oil Cream 1 appl TOPICAL DAILY PRN (Reason: Dry Skin) cephalexin 500 mg capsule 500 mg PO BID Qty: 10 0RF naproxen 500 mg tablet 500 mg PO ONCE Qty: 1 0RF nitrofurantoin monohyd/m-cryst 100 mg capsule 100 mg PO ONCE Qty: 1 0RF lidocaine HCl 2 % jelly in applicator 10 ml intra-urethral ONCE Qty: 10 0RF Interventions: ED Discharge Assessment Last Done: 11/01/24 20:20 Print Language: Khmer
--- NOTE | 2024-11-01 16:30 | ECG_ITS ---
Test Reason : qtc Blood Pressure : */* mmHG Vent. Rate : 57 BPM Atrial Rate : 57 BPM P-R Int : 162 ms QRS Dur : 130 ms QT Int : 478 ms P-R-T Axes : -4 -83 -4 degrees QTcB Int : 465 ms Sinus bradycardia Left axis deviation Right bundle branch block Abnormal ECG When compared with ECG of 14-Jun-2022 12:20, Right bundle branch block is now Present Referred By: Irineo Porter Electronically Signed By: KIRBY SCOTT
[2024-11-01 16:43] VITALS: BP 119/56; BP 140/61; PULSE 55; PULSE 60; RESP 18; TEMP 36.6; O2SAT 95; BMI 23.8
[2024-11-01 16:49] VITALS: BP 140/61; PULSE 55; RESP 18; TEMP 36.6; O2SAT 95
--- NOTE | 2024-11-01 16:51 | PC.NURSE ---
Pt comes to ED today via EMS from home after accidentally taking one extra dose of his Ambien at 1P today. A&Ox3 VSS, afebrile. Skin is warm and dry Breaths and speech are unlabored. Pt denies SI/HI Awaiting orders from ED provider
[2024-11-01 17:24] LABS: MANUAL DIFF FLAG NO
[2024-11-01 17:29] LABS: Basophils Absolute Auto 0.1 X10*3/uL (0.0-0.2); Basophils Percent Auto 0.8 % (0-2); Eosinophils Absolute Auto 0.3 X10*3/uL (0.0-0.4); Eosinophils Percent Auto 4.6 % (0-4); Hematocrit 39.9 % (42.0-52.0); Hemoglobin 12.6 g/dl (14.0-18.0); Imm Gran Abs Auto 0.02 X10*3/uL (0.00-0.03); Imm Gran Pct Auto 0.3 % (0.0-0.4); Lymphocytes Absolute Auto 1.6 X10*3/uL (1.2-4.9); Lymphocytes Percent Auto 21.2 % (20-40); Mean Corpuscular HGB Conc 31.6 g/dl (31.0-36.0); Mean Corpuscular Hemoglobin 29.4 pg (27.0-33.0); Mean Corpuscular Volume 93.2 fL (80.0-98.0); Mean Platelet Volume 11.2 fL (9.4-12.4); Monocytes Absolute Auto 0.8 X10*3/uL (0.1-1.2); Monocytes Percent Auto 11.3 % (2-11); Neutrophils Absolute Auto 4.6 x10*3/uL (2.0-8.3); Neutrophils Percent Auto 61.8 % (45-73); Platelet Count 144 X10*3/uL (160-400); Red Blood Count 4.28 X10*6/uL (4.60-5.80); Red Cell Distribution Width 14.1 % (11.0-16.0); White Blood Count 7.5 X10*3/uL (4.8-10.8)
[2024-11-01 17:39] LABS: Alanine Aminotransferase 8 U/L (0-40); Albumin Level 3.5 g/dL (3.5-5.0); Alkaline Phosphatase 70 U/L (39-117); Anion Gap 9 (12-20); Aspartate Amino Transferase 23 U/L (5-37); Bilirubin Total 0.4 mg/dL (0.0-1.0); Blood Urea Nitrogen 17 mg/dL (9-16); Carbon Dioxide 37 mmol/L (22-29); Chloride 101 mmol/L (96-108); Creatinine Clr Calc Pharmacy 71.3; Estimated Glomerular Filt Rate > 60; Glucose Random 131 mg/dL (60-115); Magnesium 1.7 mg/dL (1.6-2.6); Potassium 3.8 mmol/L (3.3-5.1); Sodium 143 mmol/L (135-145); Total Protein 6.3 g/dL (6.5-8.0)
[2024-11-01 17:47] LABS: Troponin-I High Sensitivity 9.3 ng/L (<3.5-35.0)
[2024-11-01 18:47] VITALS: BP 120/55; RESP 17; TEMP 36.2; O2SAT 97
[2024-11-01 20:19] VITALS: BP 115/61; PULSE 66; RESP 16; TEMP 36.8; O2SAT 97
[2024-11-01 20:20] VITALS: BP 115/61; PULSE 66; RESP 16; TEMP 36.8; O2SAT 97
== END 2024-11-01 21:05 | disposition home or self-care (01) ==
PROVIDERS: Emergency Provider Internal Medicine
DX: T42.4X1A Poisoning by benzodiazepines, accidental (unintentional), initial encounter (principal); T42.6X1A Poisoning by other antiepileptic and sedative-hypnotic drugs, accidental (unintentional), initial encounter; R41.0 Disorientation, unspecified; R00.1 Bradycardia, unspecified; I45.10 Unspecified right bundle-branch block; I95.9 Hypotension, unspecified; J44.9 Chronic obstructive pulmonary disease, unspecified; Z99.81 Dependence on supplemental oxygen; Y92.9 Unspecified place or not applicable; Z79.899 Other long term (current) drug therapy; Z87.891 Personal history of nicotine dependence
CPT/HCPCS: 36415; 71045; 80053; 83735; 84484; 85025; 93005; 99283; 99284

== ENCOUNTER → 2024-11-01 16:30 | Outpatient (BNV) | payer MEDICARE, MEDICAID, SELFPAY | PROVIDERS: Emergency Provider Internal Medicine; Visit Provider Internal Medicine | DX: R00.1 Bradycardia, unspecified (principal); I45.10 Unspecified right bundle-branch block | CPT/HCPCS: 93010 ==

== ENCOUNTER → 2024-11-01 16:48 | Outpatient (BNV) | payer MEDICARE, MEDICAID, SELFPAY | PROVIDERS: Emergency Provider Internal Medicine; Visit Provider Radiology Diagnostic Radiology | DX: R06.02 Shortness of breath (principal) | CPT/HCPCS: 71045 ==